=== PATIENT | female | born 1980 | race Caucasian/White ===

== ENCOUNTER 2024-06-26 11:32 | Emergency (ER) | payer OTHER, SELFPAY ==
--- OUTSIDE RECORDS SUMMARY | 2024-06-26 11:35 | XMS_ITS | Encounter Summary ---
Author Organization [facility] Address [address] [place] [address] Phone Care Team Providers Care Chlorinator Name Role Phone Ángel Smith MD Primary Care Provider Ovidio Callahan MD Unavailable [phone] Reason for Visit * Reason Comments Medication Refill Encounter Details Date Type Department Care Team (Late st Contact Info) Description 01/09/2024 Refill [facility] Family Medicine [facility] #2 [place] [address] Ángel Smith MD #[address] [address] Medication Refill Social History Tobacco Use Types Packs/Day Years Used Date Smoking Tobacco: Light Smoker Cigarettes 0.3 15 Smokeless Tobacco: Never Comments:Smoked for 15 years on and off;about 3 a day Alcohol Use Standard Drinks/Week Comments Not Currently 0 (1 standard drink = 0.6 oz pur e alcohol) wine here and there PHQ-2 Answer Date Recorded Total Score - Questions 1-9 0 04/13 Education Answer Date Recorded What is the highest level of school you have completed or the highest degree you have received? Associate degree: occupational, technical, or vocational program 08/02/2022 Sexually Active Control Partners Comments Yes Male Comments No Sex and Gender Information Value Date Recorded Sex Assigned at Not on file Legal Sex Female 10:02 PM CDT Gender Identity Not on file Sexual Orientation Not on file documented as of this encounter Miscellaneous Notes * Telephone Encounter - Maite Padilla RN - 01/09/2024 1:22 PM CST Images from the original note were not included. HYDROcodone-Acetaminophen Dispensed Days Supply Quantity Provider Pharmacy HYDROCO/APAP TAB 5-325MG 12/26/2023 10 40 Tablet Ángel Smith MD [facility]... HYDROCO/APAP TAB 5-325MG 11/27/2023 10 40 Tablet Jorge Abdalla APRN, CNP [facility] Bet... Medication failed the protocol, provider to review and approve the medication order if appropriate. Requested Prescriptions Pending Prescriptions Disp Refills HYDROcodone-acetaminophen (NORCO) 5-325 MG Tablet [Pharmacy Med Name: HYDROCODONE BITARTRATE/ACETAMINOPHEN 5-325MG TABLET] 40 Tablet 0 Sig: TAKE 1 TABLET BY MOUTH EVERY SIX (6) HOURS NEEDED FOR MODERATE OR MORE SEVERE PAIN. Not Delegated - Opioid Combinations Protocol Failed - 01/09/2024 11:01 AM Failed - This refill cannot be delegated Passed - Visit with relevant provider in past 12 months or upcoming 90 days Recent Visits Date Type Provider Dept 11/14/23 Office Visit [facility] 08/15/23 Office Visit Ángel Smith MD [facility] 04/27/23 Office Visit [facility] Show[facility] recent visits within past 365 days and meeting all other requirements Future Appointments Date Type Provider Dept 02/19/24 Appointment Ángel Smith MD 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 - Family Medicine - [place] [address] [place] [address] Ángel Smith MD [address] [address] documented as of this encounter Visit Diagnoses Diagnosis Chronic midline low back pain without sciatica documented in this encounter Additional Health Concerns Assessment Noted Time PHQ-9 Depression Total Score: 0 04/27/19 24 3:12 PM CDT documented as of this encounter Care Teams Chlorinator Relationship Specialty Start Date End Date Ángel Smith MD #[address] [address] PCP - General Family Medicine 06/07/16 Ovidio Callahan MD 4 [facility] [address] [place] [address] Consulting Physician Obstetrics & Gynecology 02/23/18 documented as of this encounter
--- OUTSIDE RECORDS SUMMARY | 2024-06-26 11:35 | XMS_ITS | Encounter Summary ---
Author Organization [facility] Address [address] [place] [address] Phone Care Team Providers Care Senior Net C Developer Name Role Phone Divine Smith MD Primary Care Provider Ovidio Callahan MD Unavailable [phone] Reason for Visit * Reason Comments Medication Refill Encounter Details Date Type Department Care Team (Late st Contact Info) Description 09/12/2019 Refill [facility] #2 [place] [address] Divine Smith MD #[address] [address] Medication Refill Social History Tobacco Use Types Packs/Day Years Used Date Smoking Tobacco: Light Smoker Cigarettes 0.3 15 Smokeless Tobacco: Never Comments:Smoked for 15 years on and off;about 5 a day Alcohol Use Standard Drinks/Week Comments Yes 0 (1 standard drink = 0.6 oz pur e alcohol) wine here and there PHQ-2 Answer Date Recorded PHQ-2 Score 0 10/11/2018 Sexually Active Control Partners Comments Yes Male Comments No Sex and Gender Information Value Date Recorded Sex Assigned at Not on file Legal Sex Female 10:02 PM CDT Gender Identity Not on file Sexual Orientation Not on file documented as of this encounter Miscellaneous Notes * Telephone Encounter - Divine Smith MD - 09/14/2019 9:08 AM CDT Prescription pending signature * Telephone Encounter - Lillie Nicole RN - 09/13/2019 3:15 PM CDT Â RFC: Patient calling asking for update on med refill request for alprazolam. Â Patient just lost her father and is in real need of the medication. Patient states she is in dire need of the meds. Please call [phone] (relationship to patient self) back regarding above referenced patient. Patient's Provider is Dr. Smith. Medication Dispense History (from 05/16/2019 to 09/12/2019) ALPRAZolam Dispensed Written Strength Quantity Refills Days Supply Provider Pharmacy ALPRAZOLAM 07/16/2019 07/15/2019 1MG 60 0 30 , DIVINE SMITH [facility] ALPRAZOLAM 06/17/2019 06/14/2019 1MG 60 0 30 , DIVINE SMITH [facility] ALPRAZOLAM 05/17/2019 05/13/2019 1MG 60 0 30 , DIVNIE SMITH [facility] External Sources Source [place] for [place] 9:25 AM History Response [place] 03/26/2018 3:19 PM History [facility] 09/12/2019 8:47 AM History Response Filed Medication failed the protocol, provider to review and approve the medication order. Requested Prescriptions Pending Prescriptions Disp Refills â€¢ ALPRAZolam (XANAX) 1 MG Tablet [Pharmacy Med Name: ALPRAZOLAM 1 MG TAB 1 TAB] 60 Tab 0 Sig: TAKE ONE TABLET BY MOUTH TWO TIMES A DAY NEEDED ANXIETY Not Delegated - Psychiatry: Anxiolytics/Hypnotics Failed - 09/13/2019 3:13 PM Failed - This refill cannot be delegated Passed - Valid encounter within last 6 months Past Office Visits Recent Outpatient Visits 3 months ago Anxiety [facility] Divine Smith MD 8 months ago Anxiety [facility] Divine Smith MD 1 year ago Abscess [facility] Eboni Bonilla APN, JACQUARD LACE WEAVER 1 year ago Chronic midline low back pain without sciatica [facility] Divine Smith MD 1 year ago Neurological deficit present [facility] Divine Smith MD Upcoming Appointments Future Appointments In 1 week Divine Smith MD [facility], [facility] - Recent and Past Visits Recent Visits Date Type Provider Dept 05/21/19 Telemedicine Divine Smith MD [facility] 12/25/18 Office Visit Divine Smith MD [facility] [place] 09/11/18 Office Visit Eboni Bonilla APN, JACQUARD LACE WEAVER [facility] 08/21/18 Office Visit [facility] MD [facility] Showing recent visits within past 460 days with a meds authorizing provider and meeting all other requirements Future Appointments Date Type Provider Dept 09/23/19 Appointment Divine Smith MD [facility] Showing future appointments within next 90 days with a meds authorizing provider and meeting all other requirements * Telephone Encounter - Daveji Sunny Lockwood - 09/13/2019 3:12 PM CDT Images from the original note were not included. med refills f/u Received: Today Message Contents Aida Gutierrezripts Error Workqueue Cris Caller: Unspecified (Today, Â 3:01 PM) Â RFC: Patient calling asking for update on med refill request for alprazolam. Â Patient just lost her father and is in real need of the medication. Patient states she is in dire need of the meds. Please call [phone] (relationship to patient self) back regarding above referenced patient. Patient's Provider is Dr. Smith. Reached out to Medication Management RN via office messaging. * Telephone Encounter - Sunny Vu - 09/13/2019 1:11 PM CDT Message from Radha José sent at 09/13/2019 11:46 AM CDT RFC: Refill Name of medication needed? ALPRAZolam (XANAX) 1 MG Tablet Person calling for refill?[facility]location for refill to be sent to (if is not a written script)? [facility] [employer] [facility] For written scripts, name and relationship of person picking up script? Â Date of of person picking up script if not patient? 30 or 90 day supply? 30 Please call donis (relationship to patient self) back regarding above referenced patient if any questions. Phone number [phone]. Â Secondary phone number is . Provider: anamaria documented in this encounter Plan of Treatment Upcoming Encounters Date Type Department Care Team (Late st Contact Info) Description 07/16/2024 7:15 AM CDT Office Visit [facility] - Family [facility] #2 [place] [address] Divine Smith MD #[address] [address] documented as of this encounter Visit Diagnoses Not on filedocumented in this encounter Additional Health Concerns Assessment Noted Time PHQ-9 Depression Total Score: 0 06/01/19 19 2:00 PM CDT documented as of this encounter Care Teams Senior Net C Developer Relationship Specialty Start Date End Date Divine Smith MD #[address] [address] PCP - General Family Medicine 06/07/16 Ovidio Callahan MD 4 [facility] [place] [address] Consulting Physician Obstetrics & Gynecology 02/23/18 documented as of this encounter
--- OUTSIDE RECORDS SUMMARY | 2024-06-26 11:35 | XMS_ITS | Encounter Summary ---
Author Organization [facility] Address [address] [place] [address] Phone Care Team Providers Care Press Assistant And Feeder Name Role Phone Ángel Smith MD Primary Care Provider [phone] Ovidio Callahan MD Unavailable [phone] Reason for Visit * Reason Comments Medication Refill Encounter Details Date Type Department Care Team (Late st Contact Info) Description 10/02/2019 Refill [facility] #2 [place] [address] Ángel Smith MD #[address] [address] Medication Refill Social History Tobacco Use Types [...] on file Sexual Orientation Not on file COVID-19 Exposure Response Date Recorded In the last month, have you been in contact with someone who was confirmed or suspected to have Coronavirus / COVID-19? Yes 09/23/2019 12:10 PM CDT documented as of this encounter Miscellaneous Notes * Telephone Encounter - Lillie Nicole RN - 10/03/2019 8:14 AM CDT Last OV: 12/25/18 Next OV: 10/08/19 Routing to provider per protocol as medication(s) can not be signed by a nurse for approval. Medication Dispense History (from 06/05/2019 to 10/02/2019) HYDROcodone-Acetaminophen Dispensed Written Strength Quantity Refills Days Supply Provider Pharmacy Hydrocodone Bitartrate And Acetaminophen 09/19/2019 09/19/2019 5- 325 MG 90 0 15 , ÁNGEL SMITH [facility] Hydrocodone Bitartrate And Acetaminophen 08/19/2019 08/19/2019 5- 325 MG 90 0 30 , ÁNGEL SMITH [facility] Hydrocodone Bitartrate And Acetaminophen 07/20/2019 07/18/2019 5- 325 MG 90 0 30 , ÁNGEL SMITH [facility] Hydrocodone Bitartrate And Acetaminophen 06/20/2019 06/17/2019 5- 325 MG 90 0 30 , ÁNGEL SMITH [facility] External Sources Source Last Checked for Updates Status [facility] 10/02/2019 8:51 AM History Response Filed documented in this encounter Plan of Treatment Upcoming Encounters Date Type Department Care Team (Late st Contact Info) Description 07/16/2024 7:15 AM CDT Office Visit [facility] #[address] [place] [address] Ángel Smith MD [address] [address] documented as of this encounter Visit Diagnoses Not on filedocumented in this encounter Additional Health Concerns Assessment Noted Time PHQ-9 Depression Total Score: 0 06/01/19 19 2:00 PM CDT documented as of this encounter Care Teams Press Assistant And Feeder Relationship Specialty Start Date End Date Ángel Smith MD #[address] [facility] [address] [place] [address] PCP - General Family Medicine 06/07/16 Ovidio Callahan MD [address] [facility] [address] [place] [address] Consulting Physician Obstetrics & Gynecology 02/23/18 documented as of this encounter
--- OUTSIDE RECORDS SUMMARY | 2024-06-26 11:35 | XMS_ITS | Encounter Summary ---
Author Organization [facility] Address [address] [place] [address] Phone Care Team Providers Care Chef Kitchen Manager Name Role Phone Ángel Smith MD Primary Care Provider Ovidio Callahan MD Unavailable Reason for Visit * Reason Comments Medication Refill Encounter Details Date Type Department Care Team (Late st Contact Info) Description 04/30/2021 Refill [facility] #2 [place] [address] Ángel Smith MD #[address] [address] Medication Refill Social History Tobacco Use Types Packs/Day Years Used Date Smoking Tobacco: Light Smoker Cigarettes 0.3 15 Smokeless Tobacco: Never Comments:Smoked for 15 years on and off;about 3 a day Alcohol Use Standard Drinks/Week Comments Not Currently 0 (1 standard drink = 0.6 oz pur e alcohol) wine here and there PHQ-2 Answer Date Recorded Total Score - Questions 1-9 0 12/14 Sexually Active Control Partners Comments Yes Male Comments No Sex and Gender Information Value Date Recorded Sex Assigned at Not on file Legal Sex Female 10:02 PM CDT Gender Identity Not on file Sexual Orientation Not on file documented as of this encounter Miscellaneous Notes * Telephone Encounter - Maite Padilla RN - 04/30/2021 3:09 PM CDT 04/17/21 - 20 days - due 05/07/21 - posted Rx was sent over 04/29/21 ALPRAZolam (XANAX) 1 MG Tablet 60 Tablet 0 05/07/2021 Sig: TAKE ONE (1) TABLET BY MOUTH THREE (3) TIMES DAILY NEEDED FOR ANXIETY. Sent to pharmacy as: ALPRAZolam 1 MG Oral Tablet (XANAX) Class: E Prescribe Notes to Pharmacy: Earliest fill date 05/07/21 E-Prescribing Status: Receipt confirmed by pharmacy (04/29/2021 Â 6:57 AM CDT) Order Questions Â ALPRAZolam (XANAX) 1 MG Tablet [[id number]] 6 Status: Active Ordering user: Ángel Smith MD 04/29/21656 Authorized by: Ángel Smith MD Frequency: Â 05/07/21 - Until Discontinued Released by: Ángel Smith MD 04/29/21 0657 Diagnoses Anxiety [F41.9] Associated Diagnoses Anxiety Pharmacy [place], [place] - [address] [facility] documented in this encounter Plan of Treatment Upcoming Encounters Date Type Department Care Team (Late st Contact Info) Description 07/16/2024 7:15 AM CDT Office Visit [facility] - Family Medicine [facility] #2 [place] [address] Ángel Smith MD #[address] [address] documented as of this encounter Visit Diagnoses Diagnosis Anxiety Anxiety state, unspecified documented in this encounter Additional Health Concerns Assessment Noted Time PHQ-9 Depression Total Score: 0 12/31/19 21 11:20 AM ELECTRODYNAMICIST documented as of this encounter Care Teams Chef Kitchen Manager Relationship Specialty Start Date End Date Ángel Smith MD #[address] [address] PCP - General Family Medicine 06/07/16 Ovidio Callahan MD [address] [facility] [place] [address] Consulting Physician Obstetrics & Gynecology 02/23/18 documented as of this encounter
--- OUTSIDE RECORDS SUMMARY | 2024-06-26 11:35 | XMS_ITS | Encounter Summary ---
Author Organization [facility] Address [address] [place] [address] Phone Care Team Providers Care Lode Miner Name Role Phone Ángel Smith MD Primary Care Provider Ovidio Callahan MD Unavailable [phone] Reason for Visit * Reason Comments Medication Refill Encounter Details Date Type Department Care Team (Late st Contact Info) Description 04/20/2021 Refill [facility] #2 [place] [address] Ángel Smith MD #[address] [address] Medication Refill Social History Tobacco Use Types [...] Telephone Encounter - Maite Padilla RN - 04/21/2021 8:28 AM CST Per PDMP - a 20 days supply was dispensed 04/17/21 ER BOILERMAKER documented in this encounter Plan of Treatment Upcoming Encounters Date Type Department Care Team (Late st Contact Info) Description 07/16/2024 7:15 AM CDT Office Visit [facility] - Family Medicine - [place] #2 [place] [address] Ángel Smith MD #[address] [address] documented as of this encounter Visit Diagnoses Diagnosis Anxiety Anxiety state, unspecified documented in this encounter Additional Health Concerns Assessment Noted Time PHQ-9 Depression Total Score: 0 12/31/19 21 11:20 AM WELDER BOILERMAKER documented as of this encounter Care Teams Lode Miner Relationship Specialty Start Date End Date Ángel Smith MD #[address] [address] PCP - General Family Medicine 06/07/16 Ovidio Callahan MD [address] [place] [address] [facility] [address] [place] [address] Consulting Physician Obstetrics & Gynecology 02/23/18 documented as of this encounter
--- OUTSIDE RECORDS SUMMARY | 2024-06-26 11:35 | XMS_ITS | Encounter Summary ---
Author Organization [facility] Address [address] [place] [address] Phone Care Team Providers Care Energy Conservation Specialist Name Role Phone Ángel Smith MD Primary Care Provider Ovidio Callahan MD Unavailable [phone] Reason for Visit * Reason Onset Date Comments Appointment 01/16/2024 Encounter Details Date Type Department Care Team (Late st Contact Info) Description 01/16/2024 Telephone [facility] #2 [place] [address] Ángel Smith MD #[address] [address] Appointment Social History Tobacco Use Types Packs/Day Years [...] encounter Miscellaneous Notes * Telephone Encounter - Tracy Edwards - 01/16/2024 11:06 AM CST Patient was last seen on 11/14/2023 and her next appointment is for 02/19/2024 for a 3 month follow up. She is seen every 3 months for her prescription. S ORDER PROCESSOR documented in this encounter Plan of Treatment Upcoming Encounters Date Type Department Care Team (Late st Contact Info) Description 07/16/2024 7:15 AM CDT Office Visit [facility] - [place] #2 [facility] [place] [address] Ángel Smith MD #[address] [address] documented as of this encounter Visit Diagnoses Not on filedocumented in this encounter Additional Health Concerns Assessment Noted Time PHQ-9 Depression Total Score: 0 04/27/19 24 3:12 PM CDT documented as of this encounter Care Teams Energy Conservation Specialist Relationship Specialty Start Date End Date Ángel Smith MD #[address] [address] PCP - General Family Medicine 06/07/16 Ovidio Callahan MD [address] [place] [address] [address] [place] [address] Consulting Physician Obstetrics & Gynecology 02/23/18 documented as of this encounter
--- OUTSIDE RECORDS SUMMARY | 2024-06-26 11:35 | XMS_ITS | Encounter Summary ---
Author Organization [facility] Address [address] [place] [address] Phone Care Team Providers Care Crochet Machine Operator Name Role Phone Ángel Smith MD Primary Care Provider Ovidio Callahan MD Unavailable Reason for Visit * Reason Comments Medication Refill Encounter Details Date Type Department Care Team (Late st Contact Info) Description 12/15/2023 Refill [facility] Medicine [facility] #2 [place] [address] Ángel Smith MD #[address] [address] Medication Refill Social History Tobacco Use Types [...] encounter Miscellaneous Notes * Telephone Encounter - Marisol Jinag RN - 12/16/2023 11:15 AM CDT Images from the original note were not included. HYDROcodone-Acetaminophen Dispensed Days Supply Quantity Provider Pharmacy HYDROCO/APAP TAB 5-325MG 11/27/2023 10 40 Tablet Jorge Abdalla APRN, DEON [facility] Bet... HYDROCO/APAP TAB 5-325MG 11/13/2023 10 40 Tablet Ángel Smith MD [facility] Bet... Medication failed the protocol, provider to review and approve the medication order if appropriate. Requested Prescriptions Pending Prescriptions Disp Refills HYDROcodone-acetaminophen (NORCO) 5-325 MG Tablet [Pharmacy Med Name: HYDROCODONE BITARTRATE/ACETAMINOPHEN 5-325MG TABLET] 40 Tablet 0 Sig: TAKE 1 TABLET BY MOUTH EVERY SIX (6) HOURS NEEDED FOR MODERATE OR MORE SEVERE PAIN. Not Delegated - Opioid Combinations Protocol Failed - 12/15/2023 5:07 PM Failed - This refill cannot be delegated Passed - Visit with relevant provider in past 12 months or upcoming 90 days Recent Visits Date Type Provider Dept 11/14/23 Office Visit Ángel Smith MD [facility] 08/15/23 Office Visit Ángel Smith MD [facility] 04/27/23 Office Visit Ángel Smith MD [facility] Showing recent visits within past 365 days and meeting all other requirements Future Appointments Date Type Provider Dept 02/19/24 Appointment Ángel Smith [facility] future appointments within next 90 days and meeting all other requirements documented in this encounter Plan of Treatment Upcoming Encounters Date Type Department Care Team (Late st Contact Info) Description 07/16/2024 7:15 AM CDT Office Visit [facility] - Family Medicine - [place] #[address] [place] [address] Ángel Smith MD #[address] [address] documented as of this encounter Visit Diagnoses Diagnosis Chronic midline low back pain without sciatica documented in this encounter Additional Health Concerns Assessment Noted Time PHQ-9 Depression Total Score: 0 04/27/19 24 3:12 PM CDT documented as of this encounter Care Teams Crochet Machine Operator Relationship Specialty Start Date End Date Ángel Smith MD #2 [facility] [address] [place] [address] PCP - General Family Medicine 06/07/16 Ovidio Callahan MD [address] [facility] [address] [place] [address] Consulting Physician Obstetrics & Gynecology 02/23/18 documented as of this encounter
--- OUTSIDE RECORDS SUMMARY | 2024-06-26 11:35 | XMS_ITS | Encounter Summary ---
Author Organization [facility] Address [address] [place] [address] Phone Care Team Providers Care Pipeline Welder Name Role Phone Ángel Smith MD Primary Care Provider Ovidio Callahan MD Unavailable [phone] Reason for Visit * Reason Comments Medication Refill Encounter Details Date Type Department Care Team (Late st Contact Info) Description 08/15/2019 Refill [facility] #2 [place] [address] Ángel Smith MD #[address] [address] Medication Refill Social History Tobacco Use Types [...] encounter Miscellaneous Notes * Telephone Encounter - Ángel Smith MD - 08/19/2019 8:58 AM CDT Prescription pending signature * Telephone Encounter - Felecia Liang RN - 08/19/2019 8:50 AM CDT Requested Prescriptions Pending Prescriptions Disp Refills HYDROcodone-acetaminophen (NORCO) 5-325 MG Tablet [Pharmacy Med Name: HYDROCODON-APAP 5-325 5-325 TAB] 90 Tab 0 Sig: Take 1 Tab by mouth every 4 hours as needed (pain). Not Delegated - Analgesics: Opioid Agonist Combinations Failed - 08/15/2019 11:39 AM Failed - This refill cannot be delegated Passed - Valid encounter within last 6 months Past Office Visits Recent Outpatient Visits 3 months ago Anxiety [facility] Ángel Smith MD 7 months ago Anxiety [facility] Ángel Smith MD 11 months ago Abscess [facility] Eboni Bonilla APN, WEB PRESS OPERATOR APPRENTICE 12 months ago Chronic midline low back pain without sciatica [facility] Ángel Smith MD 1 year ago Neurological deficit present [facility] Ángel Smith MD Upcoming Appointments Future Appointments In 1 month Ángel Smith MD [facility], [facility] documented in this encounter Plan of Treatment Upcoming Encounters Date Type Department Care Team (Late st Contact Info) Description 07/16/2024 7:15 AM CDT Office Visit [facility] - [place] [address] [place] [address] Ángel Smith MD [address] [address] documented as of this encounter Visit Diagnoses Not on filedocumented in this encounter Additional Health Concerns Assessment Noted Time PHQ-9 Depression Total Score: 0 06/01/19 19 2:00 PM CDT documented as of this encounter Care Teams Pipeline Welder Relationship Specialty Start Date End Date Ángel Smith MD #2 [facility] [address] [place] [address] PCP - General Family Medicine 06/07/16 Ovidio Callahan MD [address] [facility] [address] [place] [address] Consulting Physician Obstetrics & Gynecology 02/23/18 documented as of this encounter
--- OUTSIDE RECORDS SUMMARY | 2024-06-26 11:35 | XMS_ITS | Encounter Summary ---
Author Organization [facility] Address [address] [place] [address] Phone Care Team Providers Care Utility Pipe Layer Name Role Phone Ángel Smith MD Primary Care Provider [phone] Ovidio Callahan MD Unavailable [phone] Reason for Visit * Reason Onset Date Comments Medication Refill 09/16/2019 Encounter Details Date Type Department Care Team (Late st Contact Info) Description 09/16/[address] [facility] [address] [place], [place] [address] Ángel Smith MD #[address] [address] Medication Refill Social History Tobacco Use Types [...] encounter Miscellaneous Notes * Telephone Encounter - Hattie Pope RN - 09/17/2019 8:36 AM CDT Duplicate request. * Telephone Encounter - Jesica Yeung - 09/16/2019 12:10 PM CDT Name of Medication: HYDROcodone-acetaminophen (NORCO) 5-325 MG Tablet Pharmacy/location for refill to be sent to (if is not a written script)? [facility] [place] [facility] [address] [place] [address] 30 or 90 day supply? N/a New script for controlled substance schedule II medication documented in this encounter Plan of Treatment Upcoming Encounters Date Type Department Care Team (Late st Contact Info) Description 07/16/2024 7:15 AM CDT Office Visit [facility] #2 [place] [address] Ángel Smith MD [facility] [place] [address] documented as of this encounter Visit Diagnoses Not on filedocumented in this encounter Additional Health Concerns Assessment Noted Time PHQ-9 Depression Total Score: 0 06/01/19 19 2:00 PM CDT documented as of this encounter Care Teams Utility Pipe Layer Relationship Specialty Start Date End Date Ángel Smith MD [facility] [address] [place] [address] PCP - General Family Medicine 06/07/16 Ovidio Callahan MD [address] [place] [address] [facility] [address] [facility] [place] [address] Consulting Physician Obstetrics & Gynecology 02/23/18 documented as of this encounter
--- OUTSIDE RECORDS SUMMARY | 2024-06-26 11:35 | XMS_ITS | Encounter Summary ---
Author Organization [facility] Address [address] [place] [address] Phone Care Team Providers Care Repairer Switchgear Name Role Phone Ángel Smith MD Primary Care Provider Ovidio Callahan MD Unavailable [phone] Reason for Visit * Reason Comments Medication Refill Encounter Details Date Type Department Care Team (Late st Contact Info) Description 01/03/2024 Refill [facility] #2 [place] [address] Ángel Smith MD #[address] [address] Medication Refill Social History Tobacco Use Types [...] Telephone Encounter - Maite Padilla RN - 01/03/2024 12:00 PM CST Images from the original note were not included. HYDROcodone-Acetaminophen Dispensed Days Supply Quantity Provider Pharmacy HYDROCO/APAP TAB 5-325MG 12/26/2023 10 40 Tablet Ángel Smith MD [facility]... HYDROCO/APAP TAB 5-325MG 11/27/2023 10 40 Tablet Jorge Abdalla APRN, CNP [facility]... Medication failed the protocol, provider to review and approve the medication order if appropriate. Requested Prescriptions Pending Prescriptions Disp Refills HYDROcodone-acetaminophen (NORCO) 5-325 MG Tablet [Pharmacy Med Name: HYDROCODONE BITARTRATE/ACETAMINOPHEN 5-325MG TABLET] 40 Tablet 0 Sig: TAKE 1 TABLET BY MOUTH EVERY SIX (6) HOURS NEEDED FOR MODERATE OR MORE SEVERE PAIN. Not Delegated - Opioid Combinations Protocol Failed - 01/03/2024 8:03 AM Failed - This refill cannot be delegated Passed - Visit with relevant provider in past 12 months or upcoming 90 days Recent Visits Date Type Provider Dept 11/14/23 Office Visit Ángel [facility] MD [facility] 08/15/23 Office Visit Ángel Smith MD [facility] 04/27/23 Office Visit Ángel Smith MD [facility] Showing recent visits within past 365 days and meeting all other requirements Future Appointments Date Type Provider Dept 02/19/24 Appointment Ángel Smith MD [facility] Showing future appointments within next 90 days and meeting all other requirements ARY TEACHER documented in this encounter Plan of Treatment Upcoming Encounters Date Type Department Care Team (Late st Contact Info) Description 07/16/2024 7:15 AM CDT Office Visit [facility] - Family Medicine - [place] [address] [place] [address] Ángel Smith MD [address] [address] documented as of this encounter Visit Diagnoses Diagnosis Chronic midline low back pain without sciatica documented in this encounter Additional Health Concerns Assessment Noted Time PHQ-9 Depression Total Score: 0 04/27/19 24 3:12 PM CDT documented as of this encounter Care Teams Repairer Switchgear Relationship Specialty Start Date End Date Ángel Smith MD #[address] [address] PCP - General Family Medicine 06/07/16 Ovidio Callahan MD 4 [facility] [address] [place] [address] Consulting Physician Obstetrics & Gynecology 02/23/18 documented as of this encounter
--- OUTSIDE RECORDS SUMMARY | 2024-06-26 11:35 | XMS_ITS | Encounter Summary ---
Author Organization [facility] Address [address] [place] [address] Phone Care Team Providers Care Metaphysicist Name Role Phone Ángel Smith MD Primary Care Provider [phone] Ovidio Callahan MD Unavailable [phone] Encounter Details Date Type Department Care Team (Late st Contact Info) Description 04/26/2024 Results Follow-Up [facility] - Family Medicine [facility] #[address] [place] [address] Ángel Smith MD #[address] [address] THYROID STIMULATING HORMONE (TSH), CMP (COMPREHENSIVE METABOLIC PANEL), CBC WITH AUTO DIFFERENTIAL Social History Tobacco Use Types Packs/Day Years Used Date Smoking Tobacco: Light Smoker Cigarettes 0.3 15 Smokeless Tobacco: Never Comments:Smoked for 15 years on and off;about 3 a day Alcohol Use Standard Drinks/Week Comments Not Currently 0 (1 standard drink = 0.6 oz pur e alcohol) wine here and there [facility] Utilities Answer Date Recorded In the past 12 months has [employer] gas, oil, or water Kiosked threatened to shut off services in your home? Yes 04/26/2024 Social Connection and Isolat ion Panel [NHANES] Answer Date Recorded In a typical week, how many times do you talk on the phone with family, friends, or neighbors? Never 04/26/2024 How often do you get togethe r with friends or relatives? Never 04/26/2024 How often do you attend chur ch or congregational services? More than 4 times per year 04/26/2024 Do you belong to any clubs o r organizations such as mandaen groups, unions, fraternal or athletic groups, or school groups? No 04/26/2024 How often do you attend meet ings of the clubs or organizations you belong to? Patient declined 04/26/2024 Are you , , di vorced, , never , or living with a partner? 04/26/2024 AUDIT-C Answer Date Recorded Q1: How often do you have a drink containing alcohol? Never 04/26/2024 Q2: How many drinks containi ng alcohol do you have on a typical day when you are drinking? Patient does not drink Q3: How often do you have si x or more drinks on one occasion? Never 04/26/2024 Overall Financial Resource Strain (CARDIA) Answe r Date Recorded How hard is it for you to pa y for the very basics like food, housing, medical care, and heating? Very hard 04/26/2024 PHQ-2 Answer Date Recorded Total Score - Questions 1-9 0 04/13 [facility] - Occupational Stress Questionnaire Answer Date Recorded Do you feel stress - tense, restless, nervous, or anxious, or unable to sleep at night because your mind is troubled all the time - these days? Very much 04/26/2024 Exercise Vital Sign Answer Date Recorde d On average, how many days pe r week do you engage in moderate to strenuous exercise (like a brisk walk)? 6 days 04/26/2024 On average, how many minutes do you engage in exercise at this level? 150+ min 04/26/2024 Hunger Vital Sign Answer Date Recorded Within the past 12 months, y ou worried that your food would run out before you got the money to buy more. Sometimes true Within the past 12 months, t he food you bought just didn't last and you didn't have money to get more. Sometimes true PRAPARE - Transportation Answer Date Re corded In the past 12 months, has l ack of transportation kept you from medical appointments or from getting medications? No 04/13 In the past 12 months, has l ack of transportation kept you from meetings, work, or from getting things needed for daily living? No 04/26/2024 Housing Stability Vital Sign Answer Arley e Recorded In the last 12 months, was t here a time when you were not able to pay the mortgage or rent on time? Yes 04/26/2024 In the past 12 months, how m any times have you moved where you were living? 0 04/26/2024 At any time in the past 12 m [facility], were you homeless or living in a halfway (including now)? No 04/26/2024 Education Answer Date Recorded What is the [...] on file documented as of this encounter Functional Status * Audit-C Score Answer Date of Assessment Author 0 04/26/2024 11:06 AM CDT [facility] * Q1: How often do you have a drink containing alcohol? Answer Date of Assessment Author Never 04/26/2024 11:06 AM CDT [facility] [place] [facility] [place] * Q2: How many drinks containing alcohol do you have on a typical day when you are drinking? Answer Date of Assessment Author Patient does not drink 04/26/2024 11:06 AM CDT [facility] [place] [facility] * Q3: How often do you have six or more drinks on one occasion? Answer Date of Assessment Author Never 04/26/2024 11:06 AM CDT [facility] documented as of this encounter Plan of Treatment Upcoming Encounters Date Type Department Care Team (Late st Contact Info) Description 07/16/2024 7:15 AM CDT Office Visit [facility] - [place] #[address] [place] [address] Ángel Smith MD #[address] [address] documented as of this encounter Visit Diagnoses Not on filedocumented in this encounter Additional Health Concerns Assessment Noted Time PHQ-9 Depression Total Score: 0 04/27/19 24 3:12 PM CDT documented as of this encounter Care Teams Metaphysicist Relationship Specialty Start Date End Date Ángel Smith MD #2 [facility] [address] [place] [address] PCP - General Family Medicine 06/07/16 Ovidio Callahan MD [address] [facility] [address] [place] [address] Consulting Physician Obstetrics & Gynecology 02/23/18 documented as of this encounter
--- OUTSIDE RECORDS SUMMARY | 2024-06-26 11:35 | XMS_ITS | Encounter Summary ---
Author Organization [facility] Address [address] [place] [address] Phone Care Team Providers Care Data Management Name Role Phone Ángel Smith MD Primary Care Provider [phone] Ovidio Callahan MD Unavailable [phone] Reason for Visit * Reason Comments Medication Refill Encounter Details Date Type Department Care Team (Late st Contact Info) Description 10/29/2020 Refill [facility] #2 [place] [address] Ángel Smith MD #[address] [address] Medication Refill Social History Tobacco Use Types Packs/Day Years Used Date Smoking Tobacco: Light Smoker Cigarettes 0.3 15 Smokeless Tobacco: Never Comments:Smoked for 15 years on and off;about 3 a day Alcohol Use Standard Drinks/Week Comments Not Currently 0 (1 standard drink = 0.6 oz pur e alcohol) wine here and there PHQ-2 Answer Date Recorded Total Score - Questions 1-9 0 04/15 Sexually Active Control Partners Comments Yes Male Comments No Sex and Gender Information Value Date Recorded Sex Assigned at Not on file Legal Sex Female 10:02 PM CDT Gender Identity Not on file Sexual Orientation Not on file documented as of this encounter Miscellaneous Notes * Telephone Encounter - Ángel Smith MD - 10/29/2020 1:46 PM CDT Prescription approved. Please call in * Telephone Encounter - Sravani Hair RN - 10/29/2020 1:32 PM CDT Medication failed the protocol, provider to review and approve the medication order if appropriate. Requested Prescriptions Pending Prescriptions Disp Refills ergocalciferol (VITAMIN D) 43717 UNIT Capsule [Pharmacy Med Name: VIT D2 1.25 MG (50,000 UNIT 1.25 MG Capsule] 3 Capsule 2 Sig: Take 1 Cap by mouth every 30 days. healthfinch Off-Protocol Failed - 10/29/2020 12:28 PM Failed - Medication not assigned to a protocol, review manually. Passed - Valid encounter within last 12 months Past Office Visits Recent Outpatient [facility]its [facility] months ago Physical exam, annual (Adult) [facility] Ángel Diop MD 8 months ago Chronic midline low back pain without sciatica [facility] Ángel Diop MD 1 year ago Anxiety [facility] Ángel Diop MD 1 year ago Anxiety [facility] Ángel Diop MD Upcoming Appointments Future Appointments In 2 months Ángel Smith MD [facility] Recent and Past Visits Recent Visits Date Type Provider Dept 09/29/20 Office Visit Jorge Abdalla APN, DEON [facility] 05/12/20 Office Visit Ángel Smith MD [facility] 02/18/20 Telemedicine Ángel Smith MD [facility] 10/14/19 Office Visit Ángel Smith MD [facility] Showing recent visits within past 460 days with a meds authorizing provider and meeting all other requirements Future Appointments Date Type Provider Dept 12/30/20 Appointment Ángel Smith MD [facility] Showing future appointments within next 90 days with a meds authorizing provider and meeting all other requirements Vitamin Supplements (Adult) Protocol Passed - 10/29/2020 12:28 PM Passed - Visit with relevant provider in past 12 months or upcoming 90 days Recent Visits Date Type Provider Dept 09/29/20 Office Visit Jorge Abdalla APN, ONCOLOGY PHARMACIST [facility] 05/12/20 [facility] Telemedicine Ángel Smith MD [facility] Showing recent visits within past 365 days and meeting all other requirements Future Appointments Date Type Provider Dept 12/30/20 Appointment [facility] future appointments within next 90 days and meeting all other requirements Passed - Vitamin D less than 1.25mg documented in this encounter Plan of Treatment Upcoming Encounters Date Type Department Care Team (Late st Contact Info) Description 07/16/2024 7:15 AM CDT Office Visit [facility] #[address] [place] [address] Ángel Smith MD #[address] [address] documented as of this encounter Visit Diagnoses Not on filedocumented in this encounter Additional Health Concerns Assessment Noted Time PHQ-9 Depression Total Score: 0 05/13/19 21 6:06 PM CDT documented as of this encounter Care Teams Data Management Relationship Specialty Start Date End Date Ángel Smith MD #[address] [address] PCP - General Family Medicine 06/07/16 Ovidio Callahan MD [address] [place] [address] [address] [place] [address] Consulting Physician Obstetrics & Gynecology 02/23/18 documented as of this encounter
--- OUTSIDE RECORDS SUMMARY | 2024-06-26 11:35 | XMS_ITS | Encounter Summary ---
Author Organization [facility] Address [address] [place] [address] Phone Care Team Providers Care Plant Clerk Name Role Phone Ángel Smith MD Primary Care Provider [phone] Ovidio Callahan MD Unavailable [phone] Reason for Visit * Reason Comments Medication Refill Encounter Details Date Type Department Care Team (Late st Contact Info) Description 08/14/2019 Refill [facility] #2 [place] [address] Ángel Smith MD #[address] [address] Medication Refill Social History Tobacco Use Types [...] Telephone Encounter - Ángel Smith MD - 08/15/2019 2:04 PM CDT Prescription pending signature * Telephone Encounter - Esther Peraza, RN - 08/15/2019 1:53 PM CDT Requested Prescriptions Pending Prescriptions Disp Refills ALPRAZolam (XANAX) 1 MG Tablet [Pharmacy Med Name: ALPRAZOLAM 1 MG TAB 1 TAB] 60 Tab 0 Sig: TAKE ONE TABLET BY MOUTH TWO TIMES A DAY NEEDED ANXIETY Not Delegated - Psychiatry: Anxiolytics/Hypnotics Failed - 08/14/2019 4:18 PM Failed - This refill cannot be delegated Passed - Valid encounter within last 6 months Past Office Visits Recent Outpatient Visits 2 months ago Anxiety [facility] Ángel Smtih MD 7 months ago Anxiety [facility] Ángel Smith MD 11 months ago Abscess [facility] Eboni Bonilla APN, HEAVY LIFT RIGGER 11 months ago Chronic midline low back pain without sciatica [facility] Ángel Smith MD 1 year ago Neurological deficit present [facility] Ángel Smith MD Upcoming Appointments Future Appointments In 1 month Ángel Smith MD [facility], [facility] documented in this encounter Plan of Treatment Upcoming Encounters Date Type Department Care Team (Late st Contact Info) Description 07/16/2024 7:15 AM CDT Office Visit [facility] - Family Medicine - [place] #[address] [place] [address] Ángel Smith MD #[address] [address] documented as of this encounter Visit Diagnoses Not on filedocumented in this encounter Additional Health Concerns Assessment Noted Time PHQ-9 Depression Total Score: 0 06/01/19 19 2:00 PM CDT documented as of this encounter Care Teams Plant Clerk Relationship Specialty Start Date End Date Ángel Smith MD #2 [address] [facility] [address] [place] [address] PCP - General Family Medicine 06/07/16 Ovidio Callahan MD 4 [facility] [address] [place] [address] Consulting Physician Obstetrics & Gynecology 02/23/18 documented as of this encounter
--- OUTSIDE RECORDS SUMMARY | 2024-06-26 11:35 | XMS_ITS | Encounter Summary ---
Author Organization [facility] Address [address] [place] [address] Phone Care Team Providers Care Butcher All Round Name Role Phone Ángel Smith MD Primary Care Provider [phone] Ovidio Callahan MD Unavailable [phone] Encounter Details Date Type Department Care Team (Late st Contact Info) Description 04/30/2024 Results Follow-Up [facility] - Family Medicine [facility] [address] [place] [address] Ángel Smith MD #[address] [address] EKG 12 LEAD Social History Tobacco Use Types Packs/Day Years Used Date Smoking Tobacco: Light Smoker Cigarettes 0.3 15 Smokeless Tobacco: Never Comments:Smoked for 15 years on and off;about 3 a day Alcohol Use Standard Drinks/Week Comments Not Currently 0 (1 standard drink = 0.6 oz pur e alcohol) wine here and there [facility] Utilities Answer Date Recorded In the past 12 months has [employer] electric, gas, oil, or water company threatened to shut off services in your home? Yes 04/26/2024 Social Connection and Isolat ion Panel [NHANES] Answer Date Recorded In a typical week, how many times do you talk on the phone with family, friends, or neighbors? Never 04/26/2024 How often do you get togethe r with friends or relatives? Never 04/26/2024 How often do you attend chur or cheondoism services? More than 4 times per year 04/26/2024 Do you belong to any clubs o r organizations such as presybeterian groups, unions, fraternal or athletic groups, or [...] Total Score - Questions 1-9 0 04/13 [facility] - Occupational Stress Questionnaire Answer Date Recorded [...] any time in the past 12 m [facility], were you homeless or living in a correction (including now)? No 04/26/2024 Education Answer Date [...] on file documented as of this encounter Progress Notes * Shannan Scott RMA - 04/30/2024 10:02 AM CDT Viewed results on [employer]t documented in this encounter Plan of Treatment Upcoming Encounters Date Type Department Care Team (Late st Contact Info) Description 07/16/2024 7:15 AM CDT Office Visit [facility] - Family Medicine [facility] [address] [place] [address] Ángel Smith MD [address] [address] documented as of this encounter Visit Diagnoses Not on filedocumented in this encounter Additional Health Concerns Assessment Noted Time PHQ-9 Depression Total Score: 0 04/27/19 24 3:12 PM CDT documented as of this encounter Care Teams Butcher All Round Relationship Specialty Start Date End Date Ángel Smith MD #[address] [address] PCP - General Family Medicine 06/07/16 Ovidio Callahan MD [address] [facility] [address] [place] [address] Consulting Physician Obstetrics & Gynecology 02/23/18 documented as of this encounter
--- OUTSIDE RECORDS SUMMARY | 2024-06-26 11:35 | XMS_ITS | Encounter Summary ---
Author Organization [facility] Address [address] [place] [address] Phone Care Team Providers Care Collections Assistant Name Role Phone Ángel Smith MD Primary Care Provider Ovidio Callahan MD Unavailable Reason for Visit * Reason Comments Medication Refill Encounter Details Date Type Department Care Team (Late st Contact Info) Description 01/15/2024 [facility]ill [facility] #2 [place] [address] Ángel Smith MD #[address] [address] Medication Refill Social History Tobacco Use Types [...] Telephone Encounter - Ángel Smith MD - 01/15/2024 4:28 PM CST Needs office visit STAYER * Telephone Encounter - Ariana Arboleda RN - 01/15/2024 2:37 PM SEAM STAYER Dispensed Days Supply Quantity Provider Pharmacy HYDROCO/APAP TAB 5-325MG 12/26/2023 10 40 Tablet Ángel Smith MD [facility]... Medication failed the protocol, provider to review and approve the medication order if appropriate. Requested Prescriptions Pending Prescriptions Disp Refills HYDROcodone-acetaminophen (NORCO) 5-325 MG Tablet [Pharmacy Med Name: HYDROCODONE BITARTRATE/ACETAMINOPHEN 5-325MG TABLET] 40 Tablet 0 Sig: TAKE 1 TABLET BY MOUTH EVERY SIX (6) HOURS NEEDED FOR MODERATE OR MORE SEVERE PAIN. Not Delegated - Opioid Combinations Protocol Failed - 01/15/2024 11:27 AM Failed - This refill cannot be delegated Passed - Visit with relevant provider in past 12 months or upcoming 90 days Recent Visits Date Type Provider Dept 11/14/23 Office Visit Ángel Smith MD [facility] 08/15/23 Office Visit Ángel Smith MD [facility] 04/27/23 Office Visit Ángel Smith MD [facility] recent visits within past 365 days and meeting all other requirements Future Appointments Date Type Provider Dept 02/19/24 Appointment Ángel Smith MD [facility] future appointments within next 90 days and meeting all other requirements STAYER * Telephone Encounter - Ariana Arboleda RN - 01/15/2024 2:35 PM SEAM STAYER Dispensed Days Supply Quantity Provider Pharmacy HYDROCO/APAP TAB 5-325MG 12/26/2023 10 40 Tablet Ángel Smith MD [facility] Bet... STAYER documented in this encounter Plan of Treatment Upcoming Encounters Date Type Department Care Team (Late st Contact Info) Description 07/16/2024 7:15 AM CDT Office Visit [facility] [place] [address] Á[facility]el [facility] [address] [address] documented as of this encounter Visit Diagnoses Diagnosis Chronic midline low back pain without sciatica documented in this encounter Additional Health Concerns Assessment Noted Time PHQ-9 Depression Total Score: 0 04/27/19 24 3:12 PM CDT documented as of this encounter Care Teams Collections Assistant Relationship Specialty Start Date End Date Ángel Smith MD #[address] [address] PCP - General Family Medicine 06/07/16 Ovidio Callahan MD [address] [facility] [address] [place] [address] Consulting Physician Obstetrics & Gynecology 02/23/18 documented as of this encounter
--- OUTSIDE RECORDS SUMMARY | 2024-06-26 11:35 | XMS_ITS | Encounter Summary ---
Author Organization [facility] Address [address] [place] [address] Phone Care Team Providers Care Utilities Manager Name Role Phone Ángel Smith MD Primary Care Provider Ovidio Callahan MD Unavailable [phone] Reason for Visit * Reason Comments Medication Refill Encounter Details Date Type Department Care Team (Late st Contact Info) Description 10/30/2020 Refill [facility] [address] [place], [place] [id number] Ángel Smith MD #[address] [address] Medication Refill Social History Tobacco Use Types [...] Telephone Encounter - Ángel Smith MD - 10/30/2020 8:41 AM CDT Prescription approved. Please call in * Telephone Encounter - Sravani Hair RN - 10/30/2020 8:40 AM CDT Medication failed the protocol, provider to review and approve the medication order if appropriate. Requested Prescriptions Pending Prescriptions Disp Refills losartan (COZAAR) 50 MG Tablet [Pharmacy Med Name: LOSARTAN POTASSIUM 50 MG TA 50 Tablet] 30 Tablet2 Sig: TAKE 1 TAB BY MOUTH DAILY. ARB Protocol Failed - 10/30/2020 8:19 AM Failed - Serum potassium on record in past 12 months No results found for: POTASSIUM, POCTK Failed - GFR on record in past 12 months No results found for: GFRNA Passed - BP on record in the past year Clinician-entered: BP Readings from Last 3 Encounters: 09/29/20 (!) 162/104 05/12/20 116/68 10/14/19 118/76 Patient-entered: No data recorded Passed - No positive test in the past 12 months or most recent test was negative Passed - Visit with relevant provider in past year or upcoming 90 days Recent Visits Date Type Provider Dept 09/29/20 Office Visit Jorge Abdalla APN, SHEET [employer]EM[employer] [facility] 05/12/20 Office Visit [facility] MD [facility] 02/18/20 Telemedicine Ángel Smith MD [facility] Showing recent visits within past 365 days and meeting all other requirements Future Appointments Date Type Provider Dept 12/30/20 Appointment Ángel Smith MD [facility] Showing future appointments within next 90 days and meeting all other requirements Passed - No active on record documented in this encounter Plan of Treatment Upcoming Encounters Date Type Department Care Team (Late st Contact Info) Description 07/16/2024 7:15 AM CDT Office Visit [facility] - Family Medicine - [place] [address] [place] [address] Ángel Smith MD [address] [place] [address] documented as of this encounter Visit Diagnoses Not on filedocumented in this encounter Additional Health Concerns Assessment Noted Time PHQ-9 Depression Total Score: 0 05/13/19 21 6:06 PM CDT documented as of this encounter Care Teams Utilities Manager Relationship Specialty Start Date End Date Ángel Smith MD #[address] [facility] [place] [address] PCP - General Family Medicine 06/07/16 Ovidio Callahan MD 4 [facility] [address] [place] [address] Consulting Physician Obstetrics & Gynecology 02/23/18 documented as of this encounter
--- OUTSIDE RECORDS SUMMARY | 2024-06-26 11:35 | XMS_ITS | Encounter Summary ---
Author Organization [facility] Address [address] [place] [address] Phone Care Team Providers Care Resource Manager Forester Name Role Phone Ángel Smith MD Primary Care Provider Ovidio Callahan MD Unavailable [phone] Reason for Visit * Reason Comments Medication Refill Encounter Details Date Type Department Care Team (Late st Contact Info) Description 01/17/2024 Refill [facility] #2 [place] [address] Ángel Smith MD #[address] [address] Medication Refill Social History Tobacco Use Types [...] encounter Miscellaneous Notes * Telephone Encounter - Ariana Arboleda RN - 01/17/2024 3:34 PM MUSEUM OR ZOO DIRECTOR Patient was last seen on 11/14/2023 and her next appointment is for 02/19/2024 for a 3 month follow up. She is seen every 3 months for her prescription. Dispensed Days Supply Quantity Provider Pharmacy HYDROCO/APAP TAB 5-325MG 12/26/2023 10 40 Tablet Ángel Smith MD [facility] Medication failed the protocol, provider to review and approve the medication order if appropriate. Requested Prescriptions Pending Prescriptions Disp Refills HYDROcodone-acetaminophen (NORCO) 5-325 MG Tablet [Pharmacy Med Name: HYDROCODONE BITARTRATE/ACETAMINOPHEN 5-325MG TABLET] 40 Tablet 0 Sig: TAKE 1 TABLET BY MOUTH EVERY SIX (6) HOURS NEEDED FOR MODERATE OR MORE SEVERE PAIN. Not Delegated - Opioid Combinations Protocol Failed - 01/17/2024 2:38 PM Failed - This refill cannot be delegated Passed - Visit with relevant provider in past 12 months or upcoming 90 days Recent Visits Date Type Provider Dept 11/14/23 Office Visit Ángel Smith MD [facility] 08/15/23 Office Visit Ángel Smith MD [facility] 04/27/23 Office Visit Ángel Smith MD [facility] Showing recent visits within past 365 days and meeting all other requirements Future Appointments Date Type Provider Dept 02/19/24 Appointment Ángel Smith MD [facility] future appointments within next 90 days and meeting all other requirements UM OR ZOO DIRECTOR * Telephone Encounter - Ariana Arboleda RN - 01/17/2024 3:33 PM MUSEUM OR ZOO DIRECTOR Patient was last seen on 11/14/2023 and her next appointment is for 02/19/2024 for a 3 month follow up. She is seen every 3 months for her prescription. Dispensed Days Supply Quantity Provider Pharmacy HYDROCO/APAP TAB 5-325MG 12/26/2023 10 40 Tablet Ángel Smith MD [facility] UM OR ZOO DIRECTOR documented in this encounter Plan of Treatment Upcoming Encounters Date Type Department Care Team (Late st Contact Info) Description 07/16/2024 7:15 AM CDT [facility] Visit [facility] [address] [place] [address] Ángel Smith MD #[address] [address] documented as of this encounter Visit Diagnoses Diagnosis Chronic midline low back pain without sciatica documented in this encounter Additional Health Concerns Assessment Noted Time PHQ-9 Depression Total Score: 0 04/27/19 24 3:12 PM CDT documented as of this encounter Care Teams Resource Manager Forester Relationship Specialty Start Date End Date Ángel Smith MD [address] [address] PCP - General Family Medicine 06/07/16 Ovidio Callahan MD [address] [place] [address] [facility] [address] [place] [address] Consulting Physician Obstetrics & Gynecology 02/23/18 documented as of this encounter
--- OUTSIDE RECORDS SUMMARY | 2024-06-26 11:35 | XMS_ITS | Encounter Summary ---
Author Organization [facility] Address [address] [place] [address] Phone Care Team Providers Care Accounting Officer Name Role Phone Ángel Smith MD Primary Care Provider Ovidio Callahan MD Unavailable [phone] Reason for Visit * Reason Comments Medication Refill norco Encounter Details Date Type Department Care Team (Late st Contact Info) Description 09/16/2019 Refill [facility] #2 [place] [address] Ángel Smith MD #[address] [address] Medication Refill (norco) Social History Tobacco Use Types Packs/Day Years [...] Telephone Encounter - Ángel Smith MD - 09/19/2019 3:30 PM CDT Prescription pending signature * Telephone Encounter - Serenity Michel RN - 09/19/2019 12:25 PM CDT PAOLA: 12-25-2018 In the office 05-21-2019 via telemedicine for anxiety, back pain, HTN Next OV: 09-23-2019 documented in this encounter Plan of Treatment Upcoming Encounters Date Type Department Care Team (Late st Contact Info) Description 07/16/2024 7:15 AM CDT Office Visit [facility] - Family Medicine [facility] #[address] [place] [address] Ángel Smith MD #[address] [address] documented as of this encounter Visit Diagnoses Not on filedocumented in this encounter Additional Health Concerns Assessment Noted Time PHQ-9 Depression Total Score: 0 06/01/19 19 2:00 PM CDT documented as of this encounter Care Teams Accounting Officer Relationship Specialty Start Date End Date Ángel Smith MD [address] [address] PCP - General Family Medicine 06/07/16 Ovidio Callahan MD [address] [place] [address] [address] [place] [address] Consulting Physician Obstetrics & Gynecology 02/23/18 documented as of this encounter
--- OUTSIDE RECORDS SUMMARY | 2024-06-26 11:35 | XMS_ITS | Encounter Summary ---
Author Organization [facility] Address [address] [place] [address] Phone Care Team Providers Care Machine Clothing Man Name Role Phone Ángel Smith MD Primary Care Provider [phone] Ovidio Callahan MD Unavailable [phone] Reason for Visit * Reason Comments Medication Refill Encounter Details Date Type Department Care Team (Late st Contact Info) Description 10/14/2019 Refill [facility] #2 [place] [address] Ángel Smith MD #[address] [address] Medication Refill Social History Tobacco Use Types [...] or suspected to have Coronavirus / COVID-19? No / Unsure 10/14/2019 5:54 PM CDT documented as of this encounter Miscellaneous Notes * Telephone Encounter - Ángel Smith MD - 10/15/2019 6:58 AM CDT Prescription pending signature * Telephone Encounter - Areli Amador RN - 10/14/2019 5:40 PM CDT Pended refill to PCP documented in this encounter Plan of Treatment Upcoming Encounters Date Type Department Care Team (Late st Contact Info) Description 07/16/2024 7:15 AM CDT Office Visit [facility] - Family Medicine [facility] #2 [place] [address] Ángel Smith MD #[address] [address] documented as of this encounter Visit Diagnoses Not on filedocumented in this encounter Additional Health Concerns Assessment Noted Time PHQ-9 Depression Total Score: 0 06/01/19 19 2:00 PM CDT documented as of this encounter Care Teams Machine Clothing Man Relationship Specialty Start Date End Date Ángel Smith MD #[address] [address] PCP - General Family Medicine 06/07/16 Ovidio Callahan MD 4 [facility] [address] [place] [address] Consulting Physician Obstetrics & Gynecology 02/23/18 documented as of this encounter
--- OUTSIDE RECORDS SUMMARY | 2024-06-26 11:35 | XMS_ITS | Encounter Summary ---
Author Organization [facility] Address [address] [place] [address] Phone Care Team Providers Care Reversal Print Inspector Name Role Phone Ángel Smith MD Primary Care Provider Ovidio Callahan MD Unavailable [phone] Reason for Visit * Reason Comments Medication Refill Encounter Details Date Type Department Care Team (Late st Contact Info) Description 07/18/2019 Refill [facility] #2 [place] [address] Ángel Smith MD #[address] [address] Medication Refill Social History Tobacco Use Types [...] Telephone Encounter - Ángel Smith MD - 07/18/2019 11:02 AM CDT Prescription pending signature * Telephone Encounter - Maite Batista RN - 07/18/2019 10:34 AM CDT Requested Prescriptions Pending Prescriptions Disp Refills HYDROcodone-acetaminophen (NORCO) 5-325 MG Tablet [Pharmacy Med Name: HYDROCODON-APAP 5-325 5-325 TAB] 90 Tab 0 Sig: Take 1 Tab by mouth every 4 hours as needed (pain). Not Delegated - Analgesics: Opioid Agonist Combinations Failed - 07/18/2019 8:59 AM Failed - This refill cannot be delegated Passed - Valid encounter within last 6 months Past Office Visits Recent Outpatient Visits 1 month ago Anxiety [facility] Ángel Smith MD 6 months ago An[facility] Ángel Smith MD 10 months ago Abscess [facility] Eboni Bonilla APN, MAGNETIC PROSPECTOR 11 months ago Chronic midline low back pain without sciatica [facility] Ángel Smith MD 1 year ago Neurological deficit present [facility] Ángel Smith MD Upcoming Appointments Future Appointments In 2 months Ángel Smith MD [facility], [facility] Powered by [employer] - 07/18/2019 8:59 AM This is a duplicate request of medication requested 2019-07-15. Check to see if the patient is requesting a refill from a new pharmacy. documented in this encounter Plan of Treatment Upcoming Encounters Date Type Department Care Team (Late st Contact Info) Description 07/16/2024 7:15 AM CDT [facility]2 [place] [address] Ángel Smith MD #[address] [address] documented as of this encounter Visit Diagnoses Not on filedocumented in this encounter Additional Health Concerns Assessment Noted Time PHQ-9 Depression Total Score: 0 06/01/19 19 2:00 PM CDT documented as of this encounter Care Teams Reversal Print Inspector Relationship Specialty Start Date End Date Ángel Smith MD #2 [facility] [address] [place] [address] PCP - General Family Medicine 06/07/16 Ovidio Callahan MD [address] [facility] [address] [place] [address] Consulting Physician Obstetrics & Gynecology 02/23/18 documented as of this encounter
--- OUTSIDE RECORDS SUMMARY | 2024-06-26 11:35 | XMS_ITS | Encounter Summary ---
Author Organization [facility] Address [address] [place] [address] Phone Care Team Providers Care Sales Representative Printing Supplies Name Role Phone Ángel Smith MD Primary Care Provider Ovidio Callahan MD Unavailable [phone] Reason for Visit * Reason Comments Medication Refill Encounter Details Date Type Department Care Team (Late st Contact Info) Description 10/17/2019 Refill [facility] #2 [place] [address] Ángel Smith MD #[address] [address] Medication Refill Social History Tobacco Use Types [...] Telephone Encounter - Ángel Smith MD - 10/18/2019 9:05 AM CDT Prescription pending signature * Telephone Encounter - Shahana Liang RN - 10/18/2019 8:38 AM CDT Medication failed the protocol, provider to review and approve the medication order. Requested Prescriptions Pending Prescriptions Disp Refills HYDROcodone-acetaminophen (NORCO) 5-325 MG Tablet [Pharmacy Med Name: HYDROCODON-APAP 5-325 5-325 TAB] 90 Tab 0 Sig: TAKE 1 TAB BY MOUTH EVERY 4 HOURS NEEDED (PAIN). There is no refill protocol information for this order documented in this encounter Plan of Treatment Upcoming Encounters Date Type Department Care Team (Late st Contact Info) Description 07/16/2024 7:15 AM CDT Office Visit [facility] - [facility] - [place] #2 [place] [address] Ángel Smith MD #[address] [address] documented as of this encounter Visit Diagnoses Not on filedocumented in this encounter Additional Health Concerns Assessment Noted Time PHQ-9 Depression Total Score: 0 06/01/19 19 2:00 PM CDT documented as of this encounter Care Teams Sales Representative Printing Supplies Relationship Specialty Start Date End Date Ángel Smith MD #[address] [address] PCP - General Family Medicine 06/07/16 Ovidio Callahan MD [address] [place] [address] [facility] [address] [facility] [place] [address] Consulting Physician Obstetrics & Gynecology 02/23/18 documented as of this encounter
--- OUTSIDE RECORDS SUMMARY | 2024-06-26 11:35 | XMS_ITS | Encounter Summary ---
Author Organization [facility] Address [address] [place] [address] Phone Care Team Providers Care Playground Director Name Role Phone Ángel Smith MD Primary Care Provider Ovidio Callahan MD Unavailable [phone] Reason for Visit * Reason Comments Medication Refill Encounter Details Date Type Department Care Team (Late st Contact Info) Description 11/17/2020 [facility]ill [facility] #2 [place] [address] Ángel Smith MD #[address] [address] Medication Refill Social History Tobacco Use Types [...] Telephone Encounter - Ángel Smith MD - 11/17/2020 2:27 PM CDT Prescription pending signature * Telephone Encounter - Maite Padilla RN - 11/17/2020 2:04 PM CDT [place] 10/27/20 for 20 days - last appt 09/29/20 - follow up 12/30/20 Medication failed the protocol, provider to review and approve the medication order if appropriate. Requested Prescriptions Pending Prescriptions Disp Refills ALPRAZolam (XANAX) 1 MG Tablet [Pharmacy Med Name: ALPRAZOLAM 1 MG TABS 1 Tablet] 60 Tablet 0 Sig: TAKE 1 TABLET BY MOUTH 3 TIMES DAILY NEEDED FOR ANXIETY. There is no refill protocol information for this order documented in this encounter Plan of Treatment Upcoming Encounters Date Type Department Care Team (Late st Contact Info) Description 07/16/2024 7:15 AM CDT Office Visit [facility] #2 [place] [address] Ángel Smith MD #[address] [address] documented as of this encounter Visit Diagnoses Diagnosis Anxiety Anxiety state, unspecified documented in this encounter Additional Health Concerns Assessment Noted Time PHQ-9 Depression Total Score: 0 05/13/19 21 6:06 PM CDT documented as of this encounter Care Teams Playground Director Relationship Specialty Start Date End Date Ángel Smith MD #2 [facility] [place] [address] PCP - General Family Medicine 06/07/16 Ovidio Callahan MD [address] [place] [address] [facility] [address] [place] [address] Consulting Physician Obstetrics & Gynecology 02/23/18 documented as of this encounter
--- OUTSIDE RECORDS SUMMARY | 2024-06-26 11:36 | XMS_ITS | Encounter Summary ---
Author Organization [facility] Address [address] [place] [address] Phone Care Team Providers Care Field Sales Executive Name Role Phone Ángel Smith MD Primary Care Provider Ovidio Callahan MD Unavailable [phone] Reason for Visit * Reason Comments Medication Refill Encounter Details Date Type Department Care Team (Late st Contact Info) Description 12/15/2022 Refill [facility] #2 [place] [address] Ángel Smith MD #[address] [address] Medication Refill Social History Tobacco Use Types Packs/Day Years Used Date Smoking Tobacco: Light Smoker Cigarettes 0.3 15 Smokeless Tobacco: Never Comments:Smoked for 15 years on and off;about 3 a day Alcohol Use Standard Drinks/Week Comments Not Currently 0 (1 standard drink = 0.6 oz pur e alcohol) wine here and there PHQ-2 Answer Date Recorded Total Score - Questions 1-9 0 06/14 Education Answer Date Recorded What is the [...] Exposure Response Date Recorded In the last 10 days, have yo u been in contact with someone who was confirmed or suspected to have Coronavirus/COVID-19? No / Unsure 11/22/2022 5:28 PM CDT documented as of this encounter Miscellaneous Notes * Telephone Encounter - Maite Padilal RN - 12/16/2022 11:35 AM CDT PDMP 11/18/22 Medication failed the protocol, provider to review and approve the medication order if appropriate. Requested Prescriptions Pending Prescriptions Disp Refills HYDROcodone-acetaminophen (NORCO) 5-325 MG Tablet [Pharmacy Med Name: HYDROCODONE BITARTRATE/ACETAMINOPHEN 5-325MG TABLET] 60 Tablet 0 Sig: TAKE ONE (1) TO TWO (2) TABLETS BY MOUTH EVERY 8 HOURS NEEDED FOR MODERATE OR MORE SEVERE PAIN. Not Delegated - Opioid Combinations Protocol Failed - 12/15/2022 4:26 PM Failed - This refill cannot be delegated Passed - Visit with relevant provider in past 12 months or upcoming 90 days Recent Visits Date Type Provider Dept 11/22/22 Office Visit Ángel Smith MD [facility] 08/02/22 Office Visit Ángel Smith MD [facility] 04/13/22 Office Visit Ángel Smith MD [facility] 01/12/22 Office Visit Ángel Smith MD [facility] Showing recent visits within past 365 days and meeting all other requirements Future Appointments Date Type Provider Dept 02/23/23 Appointment Ángel Smith MD [facility] Showing future appointments within next 90 days and meeting all other requirements documented in this encounter Plan of Treatment Upcoming Encounters Date Type Department Care Team (Late st Contact Info) Description 07/16/2024 7:15 AM CDT Office Visit [facility] - Family Medicine - [place] [address] [place] [address] Ángel Smith MD #[address] [address] documented as of this encounter Visit Diagnoses Diagnosis Chronic midline low back pain without sciatica documented in this encounter Additional Health Concerns Assessment Noted Time PHQ-9 Depression Total Score: 0 12/31/19 21 11:20 AM POST ADOPTION COORDINATOR documented as of this encounter Care Teams Field Sales Executive Relationship Specialty Start Date End Date Ángel Smith MD #2 [facility] [address] [place] [address] PCP - General Family Medicine 06/07/16 Ovidio Callahan MD 4 [facility] [address] [place] [address] Consulting Physician Obstetrics & Gynecology 02/23/18 documented as of this encounter
--- OUTSIDE RECORDS SUMMARY | 2024-06-26 11:36 | XMS_ITS | Encounter Summary ---
Author Organization [facility] Address [address] [place] [address] Phone Care Team Providers Care Family Practice Nurse Practitioner Name Role Phone Ángel Smith MD Primary Care Provider Ovidio Callahan MD Unavailable [phone] Reason for Visit * Reason Comments Medication Refill Encounter Details Date Type Department Care Team (Late st Contact Info) Description 02/08/2023 Refill [facility] #2 [place] [address] Ángel Smith MD #[address] [address] Medication Refill Social History Tobacco Use Types [...] Telephone Encounter - Maite Padilla RN - 02/08/2023 11:41 AM CST PDMP 01/11/23 Medication failed the protocol, provider to review and approve the medication order if appropriate. Requested Prescriptions Pending Prescriptions Disp Refills ALPRAZolam (XANAX) 1 MG Tablet [Pharmacy Med Name: ALPRAZOLAM 1MG TABLET] 60 Tablet 0 Sig: TAKE 1 TABLET BY MOUTH TWO (2) TIMES DAILY NEEDED FOR ANXIETY. Not Delegated - Benzodiazepines Protocol Failed - 02/08/2023 9:00 AM Failed - This refill cannot be delegated Passed - Visit with relevant provider in past 12 months or upcoming 90 days Recent Visits Date Type Provider Dept 11/22/22 Office Visit Ángel Smith MD [facility] 08/02/22 Office Visit Ángel Smith MD [facility] 04/13/22 Office Visit Ángel Smith MD [facility] Showing recent visits within past 365 days and meeting all other requirements Future Appointments Date Type Provider Dept 02/23/23 Appointment Ángel Smith MD [facility] Showing future appointments within next 90 days and meeting all other requirements HYDROcodone-acetaminophen (NORCO) 5-325 MG Tablet [Pharmacy Med Name: HYDROCODONE BITARTRATE/ACETAMINOPHEN 5-325MG TABLET] 50 Tablet 0 Sig: Take 1 Tablet by mouth every 8 hours as needed for Mild or more severe pain. Not Delegated - Opioid Combinations Protocol Failed - 02/08/2023 9:00 AM Failed - This refill cannot be delegated Passed - Visit with relevant provider in past 12 months or upcoming 90 days Recent Visits Date Type Provider Dept 11/22/22 Office Visit Ángel Smith MD [facility] 08/02/22 Office Visit Ángel Smith MD [facility] 04/13/22 Office Visit Ángel Smith MD [facility] Showing recent visits within past 365 days and meeting all other requirements Future Appointments Date Type Provider Dept 02/23/23 Appointment Ángel Smith MD [facility] Showing future appointments within next 90 days and meeting all other requirements NCE ANALYST documented in this encounter Plan of Treatment Upcoming Encounters Date Type Department Care Team (Late st Contact Info) Description 07/16/2024 7:15 AM CDT Office Visit [facility] - [facility] #[address] [place] [address] Ángel Smith MD #2 [facility] [address] [place] [address] documented as of this encounter Visit Diagnoses Diagnosis Anxiety Anxiety state, unspecified Chronic midline low back pain without sciatica documented in this encounter Additional Health Concerns Assessment Noted Time PHQ-9 Depression Total Score: 0 12/31/19 21 11:20 AM SCIENCE ANALYST documented as of this encounter Care Teams Family Practice Nurse Practitioner Relationship Specialty Start Date End Date Ángel Smith MD #2 [facility] [place] [address] PCP - General Family Medicine 06/07/16 Ovidio Callahan MD [address] [facility] [address] [place] [address] Consulting Physician Obstetrics & Gynecology 02/23/18 documented as of this encounter
--- OUTSIDE RECORDS SUMMARY | 2024-06-26 11:36 | XMS_ITS | Encounter Summary ---
Author Organization [facility] Address [address] [place] [address] Phone Care Team Providers Care Fixture Builder Name Role Phone Ángel Smith MD Primary Care Provider [phone] Ovidio Callahan MD Unavailable [phone] Reason for Visit * Reason Comments Medication Refill Encounter Details Date Type Department Care Team (Late st Contact Info) Description 05/05/2020 Refill [facility] #2 [place] [address] Ángel Smith MD #[address] [address] Medication Refill Social History Tobacco Use Types [...] have Coronavirus / COVID-19? No / Unsure 05/05/2020 1:22 PM CDT documented as of this encounter Miscellaneous Notes * Telephone Encounter - Ángel Smith MD - 05/06/2020 10:16 AM CDT Prescription pending signature * Telephone Encounter - Maite Padilla RN - 05/06/2020 8:55 AM CDT [place] 04/10/20 Medication failed the protocol, provider to review and approve the medication order if appropriate. Requested Prescriptions Pending Prescriptions Disp Refills HYDROcodone-acetaminophen (NORCO) 5-325 MG Tablet [Pharmacy Med Name: HYDROCODON-APAP 5-325MG TAB 5-325 Tablet] 75 Tablet 0 Sig: TAKE 1 TABLET BY MOUTH EVERY 4 HOURS NEEDED (PAIN). Not Delegated - Analgesics: Opioid Agonist Combinations Failed - 05/06/2020 8:53 AM Failed - This refill cannot be delegated Passed - Valid encounter within last 6 months Past Office Visits Recent Outpatient Visits 2 months ago Chronic midline low back pain without sciatica [facility] - Ángel Diop MD 6 months ago Anxiety [facility] Ángel Diop MD 11 months ago Anxiety [facility] Ángel Diop MD 1 year ago Anxiety [facility] Ángel Diop MD 1 year ago [facility], GREASE CUP FILLER Upcoming Appointments Future Appointments In 6 days Ángel Smith MD [facility] - Recent and Past Visits Recent Visits Date Type Provider Dept 02/18/20 Telemedicine Ángel Smith MD [facility] 10/14/19 Office Visit Ángel Smith MD [facility] 05/21/19 Telemedicine Ángel Smith MD [facility] Showing recent visits within past 460 days with a meds authorizing provider and meeting all other requirements Future Appointments Date Type Provider Dept 05/12/20 Appointment Ángel Smith MD [facility] Showing future appointments within next 90 days with a meds authorizing provider and meeting all other requirements ALPRAZolam (XANAX) 1 MG Tablet [Pharmacy Med Name: ALPRAZOLAM 1 MG TAB 1 Tablet] 60 Tablet 0 Sig: TAKE 1 TABLET BY MOUTH 3 TIMES DAILY NEEDED FOR ANXIETY. Not Delegated - Psychiatry: Anxiolytics/Hypnotics Failed - 05/06/2020 8:53 AM Failed - This refill cannot be delegated Passed - Valid encounter within last 6 months Past Office Visits Recent Outpatient Visits 2 months ago Chronic midline low back pain without sciatica [facility] Ángel Diop MD 6 months ago Anxiety [facility] Ángel Diop MD 11 months ago Anxiety [facility] Ángel Diop MD 1 year ago [facility] [address] [facility] Eboni Bonilla, UROLOGY PHYSICIAN, GREASE CUP FILLER Upcoming Appointments Future Appointments In 6 days Ángel Smith MD [facility] - Recent and Past Visits Recent Visits Date Type Provider Dept 02/18/20 Telemedicine Ángel Smith MD [facility] 10/14/19 Office Visit Ángel Smith MD [facility] 05/21/19 [facility]icine [facility] within past 460 days with a meds authorizing provider and meeting all other requirements Future Appointments Date Type Provider Dept 05/12/20 Appointment Ángel Smith MD [facility] Showing future appointments within next 90 days with a meds authorizing provider and meeting all other requirements documented in this encounter Plan of Treatment Upcoming Encounters Date Type Department Care Team (Late st Contact Info) Description 07/16/2024 7:15 AM CDT Office Visit [facility] #2 [place] [address] Ángel Smith MD #[address] [address] documented as of this encounter Visit Diagnoses Not on filedocumented in this encounter Additional Health Concerns Assessment Noted Time PHQ-9 Depression Total Score: 0 06/01/19 19 2:00 PM CDT documented as of this encounter Care Teams Fixture Builder Relationship Specialty Start Date End Date Ángel Smith MD #2 [facility] [address] [place] [address] PCP - General Family Medicine 06/07/16 Ovidio Callahan MD [address] [facility] [address] [place] [address] Consulting Physician Obstetrics & Gynecology 02/23/18 documented as of this encounter
--- OUTSIDE RECORDS SUMMARY | 2024-06-26 11:36 | XMS_ITS | Encounter Summary ---
Author Organization [facility] Address [address] [place] [address] Phone Care Team Providers Care Health And Physical Education Teacher Name Role Phone Ángel Smith MD Primary Care Provider [phone] Ovidio Callahan MD Unavailable [phone] Reason for Visit * Reason Comments Medication Refill Encounter Details Date Type Department Care Team (Late st Contact Info) Description 03/13/2023 Refill [facility] #2 [place] [address] Ángel Smith MD #[address] [address] Medication Refill Social History Tobacco Use Types [...] on file documented as of this encounter Plan of Treatment Upcoming Encounters Date Type Department Care Team (Late st Contact Info) Description 07/16/2024 7:15 AM CDT Office Visit [facility] - Family Medicine [facility] #2 [place] [address] Ángel Smith MD #2 [facility] [address] [place] [address] documented as of this encounter Visit Diagnoses Diagnosis Anxiety Anxiety state, unspecified Chronic midline low back pain without sciatica documented in this encounter Additional Health Concerns Assessment Noted Time PHQ-9 Depression Total Score: 0 12/31/19 21 11:20 AM TOOLING ENGINEER documented as of this encounter Care Teams Health And Physical Education Teacher Relationship Specialty Start Date End Date Ángel Smith MD #[address] [facility] [place] [address] PCP - General Family Medicine 06/07/16 Ovidio Callahan MD [address] [facility] [address] [place] [address] Consulting Physician Obstetrics & Gynecology 02/23/18 documented as of this encounter
--- OUTSIDE RECORDS SUMMARY | 2024-06-26 11:36 | XMS_ITS | Encounter Summary ---
Author Organization [facility] Address [address] [place] [address] Phone Care Team Providers Care Milk Route Supervisor Name Role Phone Ángel Smith MD Primary Care Provider Ovidio Callahan MD Unavailable [phone] Reason for Visit * Reason Comments Medication Refill Encounter Details Date Type Department Care Team (Late st Contact Info) Description 05/11/2023 Refill [facility] #2 [place] [address] Ángel Smith MD #[address] [address] Medication Refill Social History Tobacco Use Types [...] Telephone Encounter - Maite Padilla RN - 05/12/2023 8:36 AM CDT Pt is aware she needs a new drug screen. This has not been done yet. Dr Smith will not refill theseuntil this is completed. You can see previous messages for more information. documented in this encounter Plan of Treatment Upcoming Encounters Date Type Department Care Team (Late st Contact Info) Description 07/16/2024 7:15 AM CDT Office Visit [facility] - Family Medicine [facility] #2 [facility] [place] [address] Ángel Smith MD #2 [place] [address] documented as of this encounter Visit Diagnoses Diagnosis Anxiety Anxiety state, unspecified Chronic midline low back pain without sciatica documented in this encounter Additional Health Concerns Assessment Noted Time PHQ-9 Depression Total Score: 0 04/27/19 24 3:12 PM CDT documented as of this encounter Care Teams Milk Route Supervisor Relationship Specialty Start Date End Date Ángel Smith MD #2 [facility] [address] [address] PCP - General Family Medicine 06/07/16 Ovidio Callahan MD [address] [place] [address] [address] [place] [address] Consulting Physician Obstetrics & Gynecology 02/23/18 documented as of this encounter
--- OUTSIDE RECORDS SUMMARY | 2024-06-26 11:36 | XMS_ITS | Encounter Summary ---
Author Organization [facility] Address [address] [place] [address] Phone Care Team Providers Care Lockstitch Tunnel Elastic Operator Name Role Phone Ángel Smith MD Primary Care Provider Ovidio Callahan MD Unavailable [phone] Reason for Visit * Reason Comments Medication Refill Encounter Details Date Type Department Care Team (Late st Contact Info) Description 10/27/2020 Refill [facility] - [place] #2 [place] [id number] Jorge Abdalla APRN, TECHNOLOGY TEACHER #[address] [address] Medication Refill Social History Tobacco Use Types [...] have Coronavirus / COVID-19? No / Unsure 09/28/2020 12:54 PM CDT documented as of this encounter Miscellaneous Notes * Telephone Encounter - Ángel Smith MD - 10/27/2020 5:34 PM CDT Prescription pending signature * Telephone Encounter - Jorge Abdalla APN, CNP - 10/27/2020 12:57 PM CDT Forwarding to PCP * Telephone Encounter - Bisi Carrera RN - 10/27/2020 11:33 AM CDT Medication failed the protocol, provider to review and approve the medication order if appropriate. Last OV 09/30/20, F/U 12/30/20, Last UDS 05/12/20 Compliant, [place] Rx per [place] PDMP Review 08/25/20 Bisi AVILEZ Requested Prescriptions Pending Prescriptions Disp Refills ALPRAZolam [...] Description 07/16/2024 7:15 AM CDT Office Visit [facility] - Family Medicine [facility] #[address] [place] [address] Ángel Smith MD #[address] [address] documented as of this encounter Visit Diagnoses Diagnosis Anxiety Anxiety state, unspecified documented in this encounter Additional Health Concerns Assessment Noted Time PHQ-9 Depression Total Score: 0 05/13/19 21 6:06 PM CDT documented as of this encounter Care Teams Lockstitch Tunnel Elastic Operator Relationship Specialty Start Date End Date Ángel Smith MD #2 [facility] [address] [place] [address] PCP - General Family Medicine 06/07/16 Ovidio Callahan MD 4 [facility] [address] [place] [address] Consulting Physician Obstetrics & Gynecology 02/23/18 documented as of this encounter
--- OUTSIDE RECORDS SUMMARY | 2024-06-26 11:36 | XMS_ITS | Encounter Summary ---
Author Organization [facility] Address [address] [place] [address] Phone Care Team Providers Care Carpenter Helper Maintenance Name Role Phone Ángel Smith MD Primary Care Provider Ovidio Callahan MD Unavailable [phone] Reason for Visit * Reason Comments Medication Refill Encounter Details Date Type Department Care Team (Late st Contact Info) Description 07/13/2023 Refill [facility] #2 [place] [address] Ángel Smith MD #[address] [address] Medication Refill Social History Tobacco Use Types [...] Telephone Encounter - Maite Padilla RN - 07/13/2023 11:31 AM CDT PDMP 06/15/23 Medication failed the protocol, provider to review and approve the medication order if appropriate. Requested Prescriptions Pending Prescriptions Disp Refills HYDROcodone-acetaminophen (NORCO) 5-325 MG Tablet [Pharmacy Med Name: HYDROCODONE BITARTRATE/ACETAMINOPHEN 5-325MG TABLET] 40 Tablet 0 Sig: TAKE 1 TABLET BY MOUTH EVERY 8 HOURS NEEDED FOR MODERATE OR MORE SEVERE PAIN. 5.2 Not Delegated - Opioid Combinations Protocol Failed - 07/13/2023 8:08 AM Failed - This refill cannot be delegated Passed - Visit with relevant provider in past 12 months or upcoming 90 days Recent Visits Date Type Provider Dept 04/27/23 Office Visit Ángel Smith MD [facility] 11/22/22 Office Visit Ángel Smith MD [facility] 08/02/22 Office Visit Ángel Smith MD [facility] Showing recent visits within past 365 days and meeting all other requirements Future Appointments Date Type Provider Dept 08/01/23 Appointment Ángel Smith MD [facility] Showing future appointments within next 90 days and meeting all other requirements ALPRAZolam (XANAX) 1 MG Tablet [Pharmacy Med Name: ALPRAZOLAM 1MG TABLET] 60 Tablet 0 Sig: TAKE 1 TABLET BY MOUTH TWO (2) TIMES DAILY NEEDED FOR ANXIETY. 5.2 Not Delegated - Benzodiazepines Protocol Failed - 07/13/2023 8:08 AM Failed - This refill cannot be delegated Passed - Visit with relevant provider in past 12 months or upcoming 90 days Recent Visits Date Type Provider Dept 04/27/23 Office Visit Ángel Smith MD [facility] 11/22/22 Office Visit Ángel Smith MD [facility] 08/02/22 Office Visit Ángel Smith MD [facility] Showing recent visits within past 365 days and meeting all other requirements Future Appointments Date Type Provider Dept 08/01/23 Appointment Ángel Smith MD [facility] Showing future appointments within next 90 days and meeting all other requirements documented in this encounter Plan of Treatment Upcoming Encounters Date Type Department Care Team (Late st Contact Info) Description 07/16/2024 7:15 AM CDT Office Visit [facility] #2 [place] [address] Ángel Smith MD #[address] [address] documented as of this encounter Visit Diagnoses Diagnosis Chronic midline low back pain without sciatica Anxiety Anxiety state, unspecified documented in this encounter Additional Health Concerns Assessment Noted Time PHQ-9 Depression Total Score: 0 04/27/19 24 3:12 PM CDT documented as of this encounter Care Teams Carpenter Helper Maintenance Relationship Specialty Start Date End Date Ángel Smith MD #[address] [address] PCP - General Family Medicine 06/07/16 Ovidio Callahan MD 4 [facility] [address] [place] [address] Consulting Physician Obstetrics & Gynecology 02/23/18 documented as of this encounter
--- OUTSIDE RECORDS SUMMARY | 2024-06-26 11:36 | XMS_ITS | Encounter Summary ---
Author Organization [facility] Address [address] [place] [place] [address] Phone Care Team Providers Care Vp Integration Name Role Phone Ángel Smith MD Primary Care Provider Ovidio Callahan MD Unavailable [phone] Reason for Visit * Reason Comments Medication Refill Encounter Details Date Type Department Care Team (Late st Contact Info) Description 11/14/2022 Refill [facility] #2 [place] [address] Ángel Smith MD #[address] [address] Medication Refill Social History Tobacco Use Types [...] Telephone Encounter - Maite Padilla RN - 11/15/2022 8:25 AM CDT Signed 5 days ago (11/10/2022): ALPRAZolam (XANAX) 1 MG Tablet Sig: TAKE 1 TABLET BY MOUTH THREE (3) TIMES DAILY NEEDED FOR ANXIETY. 8.31 Disp: 60 Tablet Â Â Refills: 0 Signed by: Ángel Smith MD [facility] documented in this encounter Plan of Treatment Upcoming Encounters Date Type Department Care Team (Late st Contact Info) Description 07/16/2024 7:15 AM CDT Office Visit [facility] - Family [facility] #2 [place] [address] Ángel Smith MD #[address] [address] documented as of this encounter Visit Diagnoses Diagnosis Anxiety Anxiety state, unspecified documented in this encounter Additional Health Concerns Assessment Noted Time PHQ-9 Depression Total Score: 0 12/31/19 21 11:20 AM SHOT EXAMINER documented as of this encounter Care Teams Vp Integration Relationship Specialty Start Date End Date Ángel Smith MD #[address] [address] PCP - General Family Medicine 06/07/16 Ovidio Callahan MD 4 [facility] [address] [place] [address] Consulting Physician Obstetrics & Gynecology 02/23/18 documented as of this encounter
--- OUTSIDE RECORDS SUMMARY | 2024-06-26 11:36 | XMS_ITS | Encounter Summary ---
Author Organization [facility] Address [address] [place] [address] Phone Care Team Providers Care Armhole Raiser Lockstitch Name Role Phone Ángel Smith MD Primary Care Provider Ovidio Callahan MD Unavailable [phone] Reason for Visit * Reason Comments Medication Refill Encounter Details Date Type Department Care Team (Late st Contact Info) Description 12/12/2022 Refill [facility] #2 [place] [address] Ángel Smith MD #[address] [address] Medication Refill Social History Tobacco Use Types [...] Telephone Encounter - Maite Padilla RN - 12/12/2022 2:16 PM CDT Signed Today (12/12/2022): ALPRAZolam (XANAX) 1 MG Tablet Sig: TAKE 1 TABLET BY MOUTH THREE (3) TIMES DAILY NEEDED FOR ANXIETY. 8.31 Disp: 60 Tablet Â Â Refills: 0 Signed by: Ángel Smith MD documented in this encounter Plan of Treatment Upcoming Encounters Date Type Department Care Team (Late st Contact Info) Description 07/16/2024 7:15 AM CDT Office Visit [facility] [address] [place] [address] Ángel Smith MD #[address] [address] documented as of this encounter Visit Diagnoses Diagnosis Anxiety Anxiety state, unspecified documented in this encounter Additional Health Concerns Assessment Noted Time PHQ-9 Depression Total Score: 0 12/31/19 21 11:20 AM COMIC BOOK ARTIST documented as of this encounter Care Teams Armhole Raiser Lockstitch Relationship Specialty Start Date End Date Ángel Smith MD #2 [address] [facility] [place] [address] PCP - General Family Medicine 06/07/16 Ovidio Callahan MD [address] [place] [address] [address] [place] [address] Consulting Physician Obstetrics & Gynecology 02/23/18 documented as of this encounter
--- OUTSIDE RECORDS SUMMARY | 2024-06-26 11:36 | XMS_ITS | Encounter Summary ---
Author Organization [facility] Address [address] [place] [address] Phone Care Team Providers Care Billet Sawyer Name Role Phone Ángel Smith MD Primary Care Provider [phone] Ovidio Callahan MD Unavailable [phone] Reason for Visit * Reason Comments Medication Refill Encounter Details Date Type Department Care Team (Late st Contact Info) Description 08/22/2020 Refill [facility] #2 [place] [address] Ángel Smith MD #[address] [address] Medication Refill Social History Tobacco Use Types [...] encounter Miscellaneous Notes * Telephone Encounter - Yovana Jackson RMA - 08/25/2020 1:12 PM CDT Scheduled appt for August the pt is asking for refill until then * Telephone Encounter - Maite Padilla RN - 08/24/2020 11:32 AM CDT Patient needs an appointment with PCP * Telephone Encounter - Maite Padilla RN - 08/24/2020 9:47 AM CDT [place] 07/25/20 - last appt 05/12/20 - no follow up Medication failed the protocol, provider to review [...] Description 07/16/2024 7:15 AM CDT Office Visit [facility] - Family Medicine [facility] #2 [place] [address] Ángel Smith MD #[address] [address] documented as of this encounter Visit Diagnoses Not on filedocumented in this encounter Additional Health Concerns Assessment Noted Time PHQ-9 Depression Total Score: 0 05/13/19 21 6:06 PM CDT documented as of this encounter Care Teams Billet Sawyer Relationship Specialty Start Date End Date Ángel Smith MD #[address] [address] PCP - General Family Medicine 06/07/16 Ovidio Callahan MD [address] [facility] [place] [address] Consulting Physician Obstetrics & Gynecology 02/23/18 documented as of this encounter
--- OUTSIDE RECORDS SUMMARY | 2024-06-26 11:36 | XMS_ITS | Encounter Summary ---
Author Organization [facility] Address [address] [place] [address] Phone Care Team Providers Care Consultant Nurse Name Role Phone Ángel Smith MD Primary Care Provider Ovidio Callahan MD Unavailable Reason for Visit * Reason Comments Medication Refill Encounter Details Date Type Department Care Team (Late st Contact Info) Description 09/01/2020 [facility]ill [facility] [address] [place], [place] [id number] Ángel Smith MD #[address] [address] Medication Refill Social History Tobacco Use Types [...] Telephone Encounter - Ángel Smith MD - 09/01/2020 4:34 PM CDT Prescription pending signature * Telephone Encounter - Maite Padilla RN - 09/01/2020 4:16 PM CDT Patient has appointment 09/07/20 * Telephone Encounter - Brenda Blackburn RN - 09/01/2020 3:35 PM CDT [place] last fill date 08/04/20 Medication failed the protocol, provider to review and approve the medication order if appropriate. Requested Prescriptions Pending Prescriptions Disp Refills HYDROcodone-acetaminophen (NORCO) 5-325 MG Tablet [Pharmacy Med Name: HYDROCODON-APAP 5-325MG TAB 5-325 Tablet] 60 Tablet Sig: TAKE 1 TABLET BY MOUTH EVERY 4 HOURS NEEDED FOR PAIN healthfinch Not Delegated - Analgesics: Opioid Agonist Combinations Failed - 09/01/2020 3:35 PM Failed - This refill cannot be delegated Passed - Valid encounter within last 6 months Past Office Visits Recent Outpatient Visits 3 months ago Physical exam, annual (Adult) [facility] - Ángel Diop MD 6 months ago Chronic midline low back pain without sciatica [facility] Ángel Diop MD 10 months ago Anxiety [facility] - Ángel Diop MD 1 year ago Anxiety [facility] Ángel Diop MD 1 year ago Anxiety [facility] Ángel Diop MD Upcoming Appointments Future Appointments In 6 days Ángel Smith MD [facility] - Recent and Past Visits Recent Visits Date Type Provider Dept 05/12/20 Office Visit Ángel Smith MD [facility] 02/18/20 Telemedicine Ángel Smith MD [facility] 10/14/19 Office Visit Á[facility] MD [facility] Showing recent visits within past 460 days with a meds authorizing provider and meeting all other requirements Future Appointments Date Type Provider Dept 09/07/20 Appointment Ángel Smith MD [facility] Showing future appointments within next 90 days with a meds authorizing provider and meeting all other requirements documented in this encounter Plan of Treatment Upcoming Encounters Date Type Department Care Team (Late st Contact Info) Description 07/16/2024 7:15 AM CDT Office Visit [facility] - Family Medicine [facility] #2 [place] [address] Ángel Smith MD #[address] [address] documented as of this encounter Visit Diagnoses Not on filedocumented in this encounter Additional Health Concerns Assessment Noted Time PHQ-9 Depression Total Score: 0 05/13/19 21 6:06 PM CDT documented as of this encounter Care Teams Consultant Nurse Relationship Specialty Start Date End Date Ángel Smith MD #[address] [address] PCP - General Family Medicine 06/07/16 Ovidio Callahan MD [address] [facility] [address] [place] [address] Consulting Physician Obstetrics & Gynecology 02/23/18 documented as of this encounter
--- OUTSIDE RECORDS SUMMARY | 2024-06-26 11:36 | XMS_ITS | Encounter Summary ---
Author Organization [facility] Address [address] [place] [address] Phone Care Team Providers Care Medical Interpreter Name Role Phone Ángel Smith MD Primary Care Provider [phone] Ovidio Callahan MD Unavailable [phone] Reason for Visit * Reason Comments Medication Refill Encounter Details Date Type Department Care Team (Late st Contact Info) Description 07/26/2023 Refill [facility] Medicine [facility] #2 [place] [address] Ángel Smith MD #[address] [address] Medication Refill Social History Tobacco Use Types [...] Telephone Encounter - Maite Padilla RN - 07/26/2023 10:23 AM CDT Images from the original note were not included. HYDROcodone-Acetaminophen Dispensed Days Supply Quantity Provider Pharmacy HYDROCO/APAP TAB 5-325MG 07/15/2023 13 40 Tablet Ángel Smith MD [facility]... HYDROCO/APAP TAB 5-325MG 06/15/2023 30 40 Tablet Ángel Smith MD [facility]... Medication failed the protocol, provider to review and approve the medication order if appropriate. Requested Prescriptions Pending Prescriptions Disp Refills HYDROcodone-acetaminophen (NORCO) 5-325 MG Tablet [Pharmacy Med Name: HYDROCODONE BITARTRATE/ACETAMINOPHEN 5-325MG TABLET] 40 Tablet 0 Sig: TAKE 1 TABLET BY MOUTH EVERY 8 HOURS NEEDED FOR MODERATE OR MORE SEVERE PAIN Not Delegated - Opioid Combinations Protocol Failed - 07/26/2023 7:44 AM Failed - This refill cannot be delegated Passed - Visit with relevant provider in past 12 months or upcoming 90 days Recent Visits Date Type Provider Dept 04/27/23 Office Visit Ángel Smith MD [facility] 11/22/22 Office Visit Ángel [facility] MD [facility] 08/02/22 [facility] visits within past 365 days and meeting all other requirements Future Appointments Date Type Provider Dept 08/01/23 Appointment Á[facility]el [facility] MD [facility] Show[facility] future appointments within next 90 days and meeting all other requirements documented in this encounter Plan of Treatment Upcoming Encounters Date Type Department Care Team (Late st Contact Info) Description 07/16/2024 7:15 AM CDT Office Visit [facility] - [place] #[address] [place] [address] Ángel Smith MD #[address] [address] documented as of this encounter Visit Diagnoses Diagnosis Chronic midline low back pain without sciatica documented in this encounter Additional Health Concerns Assessment Noted Time PHQ-9 Depression Total Score: 0 04/27/19 24 3:12 PM CDT documented as of this encounter Care Teams Medical Interpreter Relationship Specialty Start Date End Date Ángel Smith MD #2 [facility] [address] [place] [address] PCP - General Family Medicine 06/07/16 Ovidio Callahan MD [address] [facility] [address] [place] [address] Consulting Physician Obstetrics & Gynecology 02/23/18 documented as of this encounter
--- OUTSIDE RECORDS SUMMARY | 2024-06-26 11:36 | XMS_ITS | Encounter Summary ---
Author Organization [facility] Address [address] [place] [address] Phone Care Team Providers Care Bridge Repairer Name Role Phone Ángel Smith MD Primary Care Provider Ovidio Callahan MD Unavailable [phone] Reason for Visit * Reason Comments Medication Refill Encounter Details Date Type Department Care Team (Late st Contact Info) Description 07/30/2020 Refill [facility] #2 [place] [address] Ángel Smith MD #[address] [address] Medication Refill Social History Tobacco Use Types [...] Telephone Encounter - Maite Padilla RN - 07/30/2020 1:37 PM CDT [place] 07/05/20 Medication failed the protocol, provider to review and approve the medication order if appropriate. Requested Prescriptions Pending Prescriptions Disp Refills HYDROcodone-acetaminophen (NORCO) 5-325 MG Tablet [Pharmacy Med Name: HYDROCODON-APAP 5-325MG TAB 5-325 Tablet] 60 Tablet 0 Sig: TAKE 1 TABLET BY MOUTH EVERY 4 HOURS NEEDED FOR PAIN healthfinch Not Delegated - Analgesics: Opioid Agonist Combinations Failed - 07/30/2020 1:37 PM Failed - This refill cannot be delegated Passed - Valid encounter within last 6 months Past Office Visits Recent Outpatient Visits 2 months ago Physical exam, annual (Adult) [facility] Ángel Corbin MD 5 months ago Chronic midline low back pain without sciatica [facility] Ángel Diop MD 9 months ago Anxiety [facility] Ángel Diop MD 1 year ago Anxiety [facility] Ángel Diop MD 1 year ago Anxiety [facility] Ángel Diop MD Upcoming Appointments TICKET COUNTER - Recent and Past Visits Recent Visits Date Type Provider Dept 05/12/20 Office Visit Ángel Smith MD [facility] 02/18/20 Telemedicine Ángel Smith MD [facility] 10/14/19 Office Visit Ángel Smith MD [facility] 05/21/19 Telemedicine Ángel Smith MD [facility] Showing recent visits within past 460 days with a meds authorizing provider and meeting all other requirements Future Appointments No visits were found meeting these conditions. Showing future appointments within next 90 days with a meds authorizing provider and meeting all other requirements documented in this encounter Plan of Treatment Upcoming Encounters Date Type Department Care Team (Late st Contact Info) Description 07/16/2024 7:15 AM CDT Office Visit [facility] [place] [address] Ángel Smith MD [address] [facility] [place] [address] documented as of this encounter Visit Diagnoses Not on filedocumented in this encounter Additional Health Concerns Assessment Noted Time PHQ-9 Depression Total Score: 0 05/13/19 21 6:06 PM CDT documented as of this encounter Care Teams Bridge Repairer Relationship Specialty Start Date End Date Ángel Smith MD #2 [address] [facility] [place] [address] PCP - General Family Medicine 06/07/16 Ovidio Callahan MD 4 [facility] [address] [place] [address] Consulting Physician Obstetrics & Gynecology 02/23/18 documented as of this encounter
--- OUTSIDE RECORDS SUMMARY | 2024-06-26 11:36 | XMS_ITS | Encounter Summary ---
Author Organization [facility] Address [address] [place] [address] Phone Care Team Providers Care Transportation Manager Name Role Phone Ángel Smith MD Primary Care Provider [phone] Ovidio Callahan MD Unavailable [phone] Reason for Visit * Reason Onset Date Comments Medication Refill Medication Management 05/08/2023 [place] and Xanax Refills. Encounter Details Date Type Department Care Team (Late st Contact Info) Description 05/08/2023 Telephone [facility] Medical Group - Family Medicine [facility] #2 [place] [address] Ángel Smith MD #[address] [address] Medication Refill; Medication Management ([place] and Xanax Refills. ) Social History Tobacco Use Types Packs/Day Years [...] encounter Miscellaneous Notes * Telephone Encounter - Stacy lOivares RN - 05/09/2023 4:21 PM CDT Situation: Follow-Up/Medication Refill Issue Background: Patient following up on earlier calls in regards to her prescriptions [place] and Xanax. Patient reports never having issues in the past and doesn't want to be a bother but is wondering whythese got declined. Assessment: Previous messages state that medications were declined, messages sent to provider for review. Recommendation: Will route to provider, please advise on medications. * Telephone Encounter - Sandra Calvillo RN - 05/09/2023 12:41 PM CDT Situation: Patient calling about [place] and Xanax Refills. Background: Patient report she believe her urine was mislabeled as she was told her urine did not have [place] or[place]anax in it. Assessment: Patient report pharmacy is saying the refills have been denied and to call provider. Recommendation: Patient has attempted to call multiple times and is confused as to what is going on. Please advise. * Telephone Encounter - Maite Padilla RN - 05/08/2023 3:36 PM CDT PDMP [place] 04/10/23 - Alprazolam 04/11/23 Medication failed the protocol, provider to review and approve the medication order if appropriate. Requested Prescriptions Pending Prescriptions Disp Refills ALPRAZolam (XANAX) 1 MG Tablet [Pharmacy Med Name: ALPRAZOLAM 1MG TABLET] 60 Tablet 0 Sig: Take 1 Tablet by mouth 2 times daily as needed for Anxiety. Not Delegated - Benzodiazepines Protocol Failed - 05/08/2023 11:56 AM Failed - This refill cannot be delegated Passed - Visit with relevant provider in past 12 months or upcoming 90 days Recent Visits Date Type Provider Dept 04/27/23 Office Visit Ángel Smith MD [facility] 11/22/22 Office Visit Ángel Smith MD [facility] 08/02/22 Office Visit Ángel Smith MD [facility] Showing recent visits within past 365 days and meeting all other requirements Future Appointments Date Type Provider Dept 08/01/23 Appointment Ángel Smith MD [facility] Showing future appointments within next 90 days and meeting all other requirements HYDROcodone-acetaminophen (NORCO) 5-325 MG Tablet [Pharmacy Med Name: HYDROCODONE BITARTRATE/ACETAMINOPHEN 5-325MG TABLET] 40 Tablet 0 Sig: Take 1 Tablet by mouth every 8 hours as needed for Moderate or more severe pain. Not Delegated - Opioid Combinations Protocol Failed - 05/08/2023 11:56 AM Failed - This refill cannot be delegated Passed - Visit with relevant provider in past 12 months or upcoming 90 days Recent Visits Date Type Provider Dept 04/27/23 Office Visit Ángel Smith MD [facility] 11/22/22 Office Visit Ángel Smith MD [facility] 08/02/22 Office Visit Ángel Smith MD [facility] Showing recent visits within past 365 days and meeting all other requirements Future Appointments Date Type Provider Dept 08/01/23 Appointment Ángel Smith MD [facility] Showing future appointments within next 90 days and meeting all other requirements documented in this encounter Plan of Treatment Upcoming Encounters Date Type Department Care Team (Late st Contact Info) Description 07/16/2024 7:15 AM CDT Office Visit [facility] Medical Group - Family Medicine - [place] #[address] [place] [address] Ángel Smith MD #[address] [address] documented as of this encounter Visit Diagnoses Diagnosis Anxiety Anxiety state, unspecified Chronic midline low back pain without sciatica documented in this encounter Additional Health Concerns Assessment Noted Time PHQ-9 Depression Total Score: 0 04/27/19 24 3:12 PM CDT documented as of this encounter Care Teams Transportation Manager Relationship Specialty Start Date End Date Ángel Smith MD #2 [facility] [address] [place] [address] PCP - General Family Medicine 06/07/16 Ovidio Callahan MD [address] [facility] [address] [place] [address] Consulting Physician Obstetrics & Gynecology 02/23/18 documented as of this encounter
--- OUTSIDE RECORDS SUMMARY | 2024-06-26 11:36 | XMS_ITS | Encounter Summary ---
Author Organization [facility] Address [address] [place] [address] Phone Care Team Providers Care Mems Device Scientist Name Role Phone Ángel Smith MD Primary Care Provider Ovidio Callahan MD Unavailable [phone] Reason for Visit * Reason Comments Medication Refill Encounter Details Date Type Department Care Team (Late st Contact Info) Description 06/13/2020 Refill [facility] #2 [place] [address] Ángel Smith MD #[address] [address] Medication Refill Social History Tobacco Use Types [...] Telephone Encounter - Maite Padilla RN - 06/15/2020 9:34 AM CDT [place] 05/26/20 for 20 days supply Medication failed the protocol, provider to review and approve the medication order if appropriate. Requested Prescriptions Pending Prescriptions Disp Refills ALPRAZolam (XANAX) 1 MG Tablet [Pharmacy Med Name: ALPRAZOLAM 1 MG TABS 1 Tablet] 60 Tablet 0 Sig: TAKE 1 TABLET BY MOUTH 3 TIMES DAILY NEEDED FOR ANXIETY. healthfinch Not Delegated - Psychiatry: Anxiolytics/Hypnotics Failed - 06/15/2020 9:34 AM Failed - This refill cannot be delegated Passed - Valid encounter within last 6 months Past Office Visits Recent Outpatient Visits 1 month ago Physical exam, annual (Adult) [facility] Ángel Diop MD 3 months ago Chronic midline low back pain without sciatica [facility] Ángel Diop MD 8 months ago Anxiety [facility] Ángel Diop MD 1 year ago Anxiety [facility] Ángel Diop MD 1 year ago Anxiety [facility] Ángel Diop MD Upcoming Appointments MATERIALS ENGINEER - Recent and Past Visits Recent Visits Date Type Provider Dept 05/12/20 Office Visit Ángel Smith MD [facility] 02/18/20 Telemedicine Ángel Smith MD [facility] 10/14/19 Office Visit Ángel Smith MD [facility] 05/21/19 Telemedicine Ángel Smith MD [facility] Showing recent visits within past 460 days [...] Description 07/16/2024 7:15 AM CDT Office Visit [facility] [place] [address] Ángel Smith MD [address] [facility] [address] [place] [address] documented as of this encounter Visit Diagnoses Not on filedocumented in this encounter Additional Health Concerns Assessment Noted Time PHQ-9 Depression Total Score: 0 05/13/19 21 6:06 PM CDT documented as of this encounter Care Teams Mems Device Scientist Relationship Specialty Start Date End Date Ángel Smith MD #2 [address] [facility] [place] [address] PCP - General Family Medicine 06/07/16 Ovidio Callahan MD 4 [facility] [address] [place] [address] Consulting Physician Obstetrics & Gynecology 02/23/18 documented as of this encounter
--- OUTSIDE RECORDS SUMMARY | 2024-06-26 11:36 | XMS_ITS | Encounter Summary ---
Author Organization [facility] Address [address] [place] [address] Phone Care Team Providers Care Manager Fraud Name Role Phone Ángel Smith MD Primary Care Provider Ovidio Callahan MD Unavailable [phone] Reason for Visit * Reason Comments Medication Refill Encounter Details Date Type Department Care Team (Late st Contact Info) Description 11/17/2022 Refill [facility] - [place] #2 [place] [address] Eboni Bonilla APRN, FABRIC STRETCHER #[address] [address] Medication Refill Social History Tobacco Use Types [...] Telephone Encounter - Maite Padilla RN - 11/17/2022 5:03 PM CDT PDMP 10/21/22 - 10 days Medication failed the protocol, provider to review and approve the medication order if appropriate. Requested Prescriptions Pending Prescriptions Disp Refills HYDROcodone-acetaminophen (NORCO) 5-325 MG Tablet [Pharmacy Med Name: HYDROCODONE BITARTRATE/ACETAMINOPHEN 5-325MG TABLET] 60 Tablet 0 Sig: TAKE ONE (1) TO TWO (2) TABLETS BY MOUTH EVERY 8 HOURS NEEDED FOR MODERATE OR MORE SEVERE PAIN. Not Delegated - Opioid Combinations Protocol Failed - 11/17/2022 3:27 PM Failed - This refill cannot be delegated Passed - Visit with relevant provider in past 12 months or upcoming 90 days Recent Visits Date Type Provider Dept 08/02/22 Office Visit Ángel Smith MD [facility] Seth 04/13/22 Office Visit Ángel Smith MD [facility] 01/12/22 Office Visit Ángel Smith MD [facility] Seth Showing recent visits within past 365 days and meeting all other requirements Future Appointments Date Type Provider Dept 11/22/22 Appointment Ángel Smith MD [facility] Showing future appointments within next 90 days and meeting all other requirements documented in this encounter Plan of Treatment Upcoming Encounters Date Type Department Care Team (Late st Contact Info) Description 07/16/2024 7:15 AM CDT Office Visit [facility] - Family Medicine - [place] [address] [place] [address] Ángel Smith MD [address] [address] documented as of this encounter Visit Diagnoses Diagnosis Chronic midline low back pain without sciatica documented in this encounter Additional Health Concerns Assessment Noted Time PHQ-9 Depression Total Score: 0 12/31/19 21 11:20 AM SCHOOL COOK documented as of this encounter Care Teams Manager Fraud Relationship Specialty Start Date End Date Ángel Smith MD #2 [facility] [address] [place] [address] PCP - General Family Medicine 06/07/16 Ovidio Callahan MD [address] [facility] [address] [place] [address] Consulting Physician Obstetrics & Gynecology 02/23/18 documented as of this encounter
--- OUTSIDE RECORDS SUMMARY | 2024-06-26 11:36 | XMS_ITS | Encounter Summary ---
Author Organization [facility] Address [address] [place] [address] Phone Care Team Providers Care Board Mixer Tender Name Role Phone Ángel Smith MD Primary Care Provider Ovidio Callahan MD Unavailable [phone] Reason for Visit * Reason Comments Medication Refill Encounter Details Date Type Department Care Team (Late st Contact Info) Description 11/30/2022 Refill [facility] #2 [place] [address] Ángel Smith MD #[address] [address] Medication Refill Social History Tobacco Use Types [...] Telephone Encounter - Maite Padilla RN - 12/01/2022 8:55 AM CDT PDMP 11/18/22 - 10 days Medication failed the protocol, [...] Delegated - Opioid Combinations Protocol Failed - 11/30/2022 6:26 PM Failed - This refill cannot be delegated Passed - Visit with relevant provider in past 12 months or upcoming 90 days Recent Visits Date Type Provider Dept 11/22/22 Office Visit Ángel Smith MD [facility] 08/02/22 Office Visit Ángel Smith MD [facility] 04/13/22 Office Visit Ángel Smith MD [facility] 01/12/22 Office Visit Ángel Smith MD [facility] Seth Showing recent visits within past 365 days and meeting all other requirements Future Appointments Date Type Provider Dept 02/23/23 Appointment Ángel Smith MD [facility] Seth Showing future appointments within next 90 days and meeting all other requirements documented in this encounter Plan of Treatment Upcoming Encounters Date Type Department Care Team (Late st Contact Info) Description 07/16/2024 7:15 AM CDT Office Visit [facility] - Family Medicine - [place] [address] [place] [address] Ángel Smith MD [address] [address] documented as of this encounter Visit Diagnoses Diagnosis Chronic midline low back pain without sciatica documented in this encounter Additional Health Concerns Assessment Noted Time PHQ-9 Depression Total Score: 0 12/31/19 21 11:20 AM ELECTRIC TRUCK OPERATOR documented as of this encounter Care Teams Board Mixer Tender Relationship Specialty Start Date End Date Ángel Smith MD #2 [facility] [address] [place] [address] PCP - General Family Medicine 06/07/16 Ovidio Callahan MD [address] [facility] [address] [place] [address] Consulting Physician Obstetrics & Gynecology 02/23/18 documented as of this encounter
--- OUTSIDE RECORDS SUMMARY | 2024-06-26 11:36 | XMS_ITS | Encounter Summary ---
Author Organization [facility] Address [address] [place] [address] Phone Care Team Providers Care Hide Puller Name Role Phone Ángel Smith MD Primary Care Provider [phone] Ovidio Callahan MD Unavailable [phone] Reason for Visit * Reason Comments Medication Refill Encounter Details Date Type Department Care Team (Late st Contact Info) Description 12/31/2019 Refill [facility] #2 [place] [address] Ángel Smith MD #[address] [address] Medication Refill Social History Tobacco Use Types [...] Telephone Encounter - Maite Padilla RN - 12/31/2019 1:37 PM CST Last OV 10/14/19 - no fol up - last Rx 12/12/19 Medication failed the protocol, provider to review and approve the medication order if appropriate. Requested Prescriptions Pending Prescriptions Disp Refills ALPRAZolam (XANAX) 1 MG Tablet [Pharmacy Med Name: ALPRAZOLAM 1 MG TABS 1 Tablet] 60 Tab 0 Sig: TAKE 1 TAB BY MOUTH 3 TIMES DAILY NEEDED FOR ANXIETY. Not Delegated - Psychiatry: Anxiolytics/Hypnotics Failed - 12/31/2019 8:43 AM Failed - This refill cannot be delegated Passed - Valid encounter within last 6 months Past Office Visits Recent Outpatient Visits 2 months ago Anxiety [facility] - Ángel Diop MD 7 months ago Anxiety [facility] Ángel Diop MD 1 year ago Anxiety [facility] Ángel Diop MD 1 year ago [facility]cess [facility] Joh[facility] APN, SUBMARINE OPERATOR 1 year ago Chronic midline low back pain without sciatica [facility] Ángel Diop MD Upcoming Appointments ASSOCIATE SCIENTIST - Recent and Past Visits Recent Visits Date Type Provider Dept 10/14/19 [facility] Tele[facility]icine Ángel Smith MD [facility] Seth 12/25/18 Office Visit Ángel Smith MD [facility] Showing recent visits within past 460 days with a meds authorizing provider and meeting all other requirements Future Appointments No visits were found meeting these conditions. Showing future appointments within next 90 days with a meds authorizing provider and meeting all other requirements F EDITOR documented in this encounter Plan of Treatment Upcoming Encounters Date Type Department Care Team (Late st Contact Info) Description 07/16/2024 7:15 AM CDT Office Visit [facility] #2 [place] [address] Ángel Smith MD #[address] [address] documented as of this encounter Visit Diagnoses Not on filedocumented in this encounter Additional Health Concerns Assessment Noted Time PHQ-9 Depression Total Score: 0 06/01/19 19 2:00 PM CDT documented as of this encounter Care Teams Hide Puller Relationship Specialty Start Date End Date Ángel Smith MD #2 [facility] [address] [place] [address] PCP - General Family Medicine 06/07/16 Ovidio Callahan MD [address] [facility] [address] [place] [address] Consulting Physician Obstetrics & Gynecology 02/23/18 documented as of this encounter
--- OUTSIDE RECORDS SUMMARY | 2024-06-26 11:36 | XMS_ITS | Encounter Summary ---
Author Organization [facility] Address [address] [place] [address] Phone Care Team Providers Care Lip Cutter Name Role Phone Ángel Smith MD Primary Care Provider [phone] Ovidio Callahan MD Unavailable [phone] Reason for Visit * Reason Comments Medication Refill Encounter Details Date Type Department Care Team (Late st Contact Info) Description 04/09/2020 Refill [facility] #2 [place] [address] Ángel Smith MD #[address] [address] Medication Refill Social History Tobacco Use Types [...] Telephone Encounter - Ángel Smith MD - 04/09/2020 11:30 AM CST Prescription approved. Please call in O BOARD OPERATOR ANNOUNCER * Telephone Encounter - Maite Padilla RN - 04/09/2020 11:07 AM CST Medication failed the protocol, provider to review and approve the medication order if appropriate. Requested Prescriptions Pending Prescriptions Disp Refills DULoxetine (CYMBALTA) [address] Apolinar [Pharmacy Med Name: DULOXETINE HCL 30 MG CAP 30 Capsule] 30 Capsule 5 Sig: TAKE ONE CAPSULE BY MOUTH EVERY DAY Not Delegated - Psychiatry: Antidepressants: Other Failed - 04/09/2020 8:42 AM Failed - This refill cannot be delegated Passed - Valid encounter within last 12 months Past Office Visits Recent Outpatient Visits 1 month ago Chronic midline low back pain without sciatica [facility] Ángel Diop MD 5 months ago Anxiety [facility] Ángel Diop MD 10 months ago Anxiety [facility] Ángel Diop MD 1 year ago Anxiety [facility] Ángel Diop MD 1 year ago [facility] APN, ROLLER TURNER Upcoming Appointments Future Appointments In 1 week Ángel Smith MD [facility] - Recent and Past Visits Recent Visits Date Type Provider Dept 02/18/20 Telemedicine Ángel Smith MD [facility] 10/14/19 Office Visit Ángel Smith MD [facility] 05/21/19 Telemedicine Ángel Smith MD [facility] Showing recent visits within past 460 days with a meds authorizing provider and meeting all other requirements Future Appointments Date Type Provider Dept 04/20/20 Appointment Ángel Smith MD [facility] Showing future appointments within next 90 days with a meds authorizing provider and meeting all other requirements Passed - Last BP in normal range BP Readings from Last 1 Encounters: 10/14/19 118/76 O BOARD OPERATOR ANNOUNCER documented in this encounter Plan of Treatment Upcoming Encounters Date Type Department Care Team (Late st Contact Info) Description 07/16/2024 7:15 AM CDT Office [facility] - [place] #[address] [place] [address] Ángel Smith MD #[address] [address] documented as of this encounter Visit Diagnoses Not on filedocumented in this encounter Additional Health Concerns Assessment Noted Time PHQ-9 Depression Total Score: 0 06/01/19 19 2:00 PM CDT documented as of this encounter Care Teams Lip Cutter Relationship Specialty Start Date End Date Ángel Smith MD #[address] [address] PCP - General Family Medicine 06/07/16 Ovidio Callahan MD [address] [place] [address] [address] [place] [address] Consulting Physician Obstetrics & Gynecology 02/23/18 documented as of this encounter
--- OUTSIDE RECORDS SUMMARY | 2024-06-26 11:36 | XMS_ITS | Encounter Summary ---
Author Organization [facility] Address [address] [place] [address] Phone Care Team Providers Care Labor Delivery Specialist Name Role Phone Ángel Smith MD Primary Care Provider [phone] Ovidio Callahan MD Unavailable [phone] Reason for Visit * Reason Comments Medication Refill Encounter Details Date Type Department Care Team (Late st Contact Info) Description 12/05/2022 Refill [facility] #2 [place] [address] Ángel Smith MD #[address] [address] Medication Refill Social History Tobacco Use Types [...] Telephone Encounter - Maite Padilla RN - 12/06/2022 11:09 AM CDT PDMP 11/18/22 - 12-02 days supply Medication failed the protocol, provider [...] Delegated - Opioid Combinations Protocol Failed - 12/05/2022 5:29 PM Failed - This refill cannot be delegated Passed - Visit with relevant provider in past 12 months or upcoming 90 days Recent Visits Date Type Provider Dept 11/22/22 Office Visit Ángel Smith MD [facility] 08/02/22 Office Visit Ángel Smith MD [facility] 04/13/22 Office Visit Ángel Smith MD [facility] 01/12/22 Office Visit [facility] Showing recent visits within past 365 days and meeting all other requirements Future Appointments Date Type Provider Dept 02/23/23 Appointment Ángel Smith MD [facility] Showing future appointments within next 90 days and meeting all other requirements documented in this encounter Plan of Treatment Upcoming Encounters Date Type Department Care Team (Late st Contact Info) Description 07/16/2024 7:15 AM CDT Office Visit [facility] - Family Medicine - [place] #[address] [place] [address] Ángel Smith MD [address] [address] documented as of this encounter Visit Diagnoses Diagnosis Chronic midline low back pain without sciatica documented in this encounter Additional Health Concerns Assessment Noted Time PHQ-9 Depression Total Score: 0 12/31/19 21 11:20 AM WORKFORCE MANAGEMENT ANALYST documented as of this encounter Care Teams Labor Delivery Specialist Relationship Specialty Start Date End Date Ángel Smith MD #2 [facility] [address] [place] [address] PCP - General Family Medicine 06/07/16 Ovidio Callahan MD [address] [facility] [address] [place] [address] Consulting Physician Obstetrics & Gynecology 02/23/18 documented as of this encounter
--- OUTSIDE RECORDS SUMMARY | 2024-06-26 11:36 | XMS_ITS | Encounter Summary ---
Author Organization [facility] Address [address] [place] [address] Phone Care Team Providers Care Facilities Operations Technician Name Role Phone Ángel Smith MD Primary Care Provider Ovidio Callahan MD Unavailable [phone] Reason for Visit * Reason Comments Medication Refill Encounter Details Date Type Department Care Team (Late st Contact Info) Description 07/20/2022 Refill [facility] #2 [place] [address] Ángel Smith MD #[address] [address] Medication Refill Social History Tobacco Use Types Packs/Day Years Used Date Smoking Tobacco: Light Smoker Cigarettes 0.3 15 Smokeless Tobacco: Never Comments:Smoked for 15 years on and off;about 3 a day Alcohol Use Standard Drinks/Week Comments Not Currently 0 (1 standard drink = 0.6 oz pur e alcohol) wine here and there PHQ-2 Answer Date Recorded Total Score - Questions 1-9 0 06/14 Sexually Active Control Partners Comments Yes Male Comments No Sex and Gender Information Value Date Recorded Sex Assigned at Not on file Legal Sex Female 10:02 PM CDT Gender Identity Not on file Sexual Orientation Not on file documented as of this encounter Miscellaneous Notes * Telephone Encounter - Sravani Archibald RN - 07/20/2022 12:52 PM CDT PDMP 06/24/22 10 day supply Medication failed the protocol, provider to [...] Delegated - Opioid Combinations Protocol Failed - 07/20/2022 11:57 AM Failed - This refill cannot be delegated Passed - Visit with relevant provider in past 12 months or upcoming 90 days Recent Visits Date Type Provider Dept 04/13/22 Office Visit Ángel Smith MD [facility] 01/12/22 Office Visit Ángel Smith MD [facility] 10/13/21 Office Visit [facility] Showing recent visits within past 365 days and meeting all other requirements Future Appointments Date Type Provider Dept 08/02/22 Appointment Ángel Smith MD [facility] Showing future appointments within next 90 days and meeting all other requirements documented in this encounter Plan of Treatment Upcoming Encounters Date Type Department Care Team (Late st Contact Info) Description 07/16/2024 7:15 AM CDT Office Visit [facility] - Family Medicine [facility] #2 [place] [address] Ángel Smith MD #[address] [address] documented as of this encounter Visit Diagnoses Diagnosis Chronic midline low back pain without sciatica documented in this encounter Additional Health Concerns Assessment Noted Time PHQ-9 Depression Total Score: 0 12/31/19 21 11:20 AM COSMETIC MANAGER documented as of this encounter Care Teams Facilities Operations Technician Relationship Specialty Start Date End Date Ángel Smith MD #[address] [address] PCP - General Family Medicine 06/07/16 Ovidio Callahan MD [address] [facility] [place] [address] Consulting Physician Obstetrics & Gynecology 02/23/18 documented as of this encounter
--- OUTSIDE RECORDS SUMMARY | 2024-06-26 11:36 | XMS_ITS | Encounter Summary ---
Author Organization [facility] Address [address] [place] [address] Phone Care Team Providers Care Spa Director Name Role Phone Ángel Smith MD Primary Care Provider Ovidio Callahan MD Unavailable [phone] Reason for Visit * Reason Comments Medication Refill Encounter Details Date Type Department Care Team (Late st Contact Info) Description 10/20/2022 Refill [facility] #2 [place] [address] Ángel Smith MD #[address] [address] Medication Refill Social History Tobacco Use Types [...] encounter Miscellaneous Notes * Telephone Encounter - Eboni Bonilla APRN, CNP - 10/21/2022 1:03 PM CDT [place] EDGER[place] reviewed, UDS compliant approved * Telephone Encounter - Maite Padilla RN - 10/21/2022 9:11 AM CDT PDMP 09/20/22 - 10 days Medication failed the protocol, [...] Delegated - Opioid Combinations Protocol Failed - 10/20/2022 12:32 PM Failed - This refill cannot be delegated Passed - Visit with relevant provider in past 12 months or upcoming 90 days Recent Visits Date Type Provider Dept 08/02/22 Office Visit Á[facility]el [facility] MD [facility] 04/13/22 Office Visit Ángel Smith MD [facility] 01/12/22 Office Visit Ángel Smith MD [facility] Showing recent visits within past 365 days and meeting all other requirements Future Appointments Date Type Provider Dept 11/02/22 Appointment Ángel Smith MD [facility] Showing future appointments within next 90 days and meeting all other requirements documented in this encounter Plan of Treatment Upcoming Encounters Date Type Department Care Team (Late st Contact Info) Description 07/16/2024 7:15 AM CDT Office Visit [facility] - Family Medicine - [place] #[address] [place] [address] Ángel Smith MD #[address] [address] documented as of this encounter Visit Diagnoses Diagnosis Chronic midline low back pain without sciatica documented in this encounter Additional Health Concerns Assessment Noted Time PHQ-9 Depression Total Score: 0 12/31/19 21 11:20 AM ENGINE WATCHMAN documented as of this encounter Care Teams Spa Director Relationship Specialty Start Date End Date Ángel Smith MD #[address] [address] PCP - General Family Medicine 06/07/16 Ovidio Callahan MD [address] [facility] [address] [place] [address] Consulting Physician Obstetrics & Gynecology 02/23/18 documented as of this encounter
--- OUTSIDE RECORDS SUMMARY | 2024-06-26 11:36 | XMS_ITS | Encounter Summary ---
Author Organization [facility] Address [address] [place] [address] Phone Care Team Providers Care Portable Machine Cutter Name Role Phone Ángel Smith MD Primary Care Provider Ovidio Callahan MD Unavailable [phone] Reason for Visit * Reason Comments Medication Refill Encounter Details Date Type Department Care Team (Late st Contact Info) Description 10/29/2020 Refill [facility] - [place] #2 [place] [id number] Jorge Abdalla APRN, IP COUNSEL #[address] [address] Medication Refill Social History Tobacco Use Types [...] Encounter - Ángel Smith MD - 10/30/2020 11:48 AM CDT Prescription pending signature * Telephone Encounter - Maite Padilla RN - 10/30/2020 9:44 AM CDT [place] PDMP 10/02/20 Medication failed the protocol, provider to review and approve the medication order if appropriate. Requested Prescriptions Pending Prescriptions Disp Refills HYDROcodone-acetaminophen (NORCO) 5-325 MG Tablet [Pharmacy Med Name: HYDROCODON-APAP 5-325MG TAB 5-325 Tablet] 60 Tablet 0 Sig: TAKE 1 TABLET BY MOUTH EVERY 4 HOURS NEEDED (PAIN). [email or web address] Not Delegated - Analgesics: Opioid Agonist Combinations Failed - 10/30/2020 9:43 AM Failed - This refill cannot be delegated Passed - Valid encounter within last 6 months Past Office Visits Recent Outpatient Visits 1 month ago Anxiety [facility] - Jorge Wright APN, IP COUNSEL 5 months ago Physical exam, annual (Adult) [facility] - Ángel Diop MD 8 months ago Chronic midline low back pain without sciatica [facility] Ángel Diop MD 1 year ago Anxiety [facility] Ángel Diop MD 1 year ago Anxiety [facility] Ángel Diop MD Upcoming Appointments Future Appointments In 2 months Ángel Smith MD [facility] - Recent and Past Visits Recent Visits Date Type Provider Dept 09/29/20 Office Visit Jorge Abdalla APN, IP COUNSEL [facility] 05/12/20 Office Visit Ángel Smith MD [facility] 02/18/20 Telemedicine Ángel Smith MD [facility] 10/14/19 Office Visit Ángel Smith MD [facility] Showing recent visits within past 460 days with a meds authorizing provider and meeting all other requirements Future Appointments Date Type Provider Dept 12/30/20 Appointment Smith, Ángel S, MD [facility] Showing future appointments within next 90 days with a meds authorizing provider and meeting all other requirements documented in this encounter Plan of Treatment Upcoming Encounters Date Type Department Care Team (Late st Contact Info) Description 07/16/2024 7:15 AM CDT [facility] - [place] #2 [place] [address] Ángel Smith MD #[address] [address] documented as of this encounter Visit Diagnoses Diagnosis Chronic midline low back pain without sciatica documented in this encounter Additional Health Concerns Assessment Noted Time PHQ-9 Depression Total Score: 0 05/13/19 21 6:06 PM CDT documented as of this encounter Care Teams Portable Machine Cutter Relationship Specialty Start Date End Date Ángel Smith MD #[address] [address] PCP - General Family Medicine 06/07/16 Ovidio Callahan MD 4 [facility] [address] [place] [address] Consulting Physician Obstetrics & Gynecology 02/23/18 documented as of this encounter
--- OUTSIDE RECORDS SUMMARY | 2024-06-26 11:36 | XMS_ITS | Encounter Summary ---
Author Organization [facility] Address [address] [place] [address] Phone Care Team Providers Care Psychiatry Resident Name Role Phone Ángel Smith MD Primary Care Provider [phone] Ovidio Callahan MD Unavailable [phone] Reason for Visit * Reason Comments Medication Refill Encounter Details Date Type Department Care Team (Late st Contact Info) Description 04/08/2023 Refill [facility] #2 [place] [address] Ángel Smith MD #[address] [address] Medication Refill Social History Tobacco Use Types [...] Telephone Encounter - Maite Padilla RN - 04/10/2023 9:22 AM CST PDMP 03/11/23 Medication failed the protocol, provider to review and approve the medication order if appropriate. Requested Prescriptions Pending Prescriptions Disp Refills HYDROcodone-acetaminophen (NORCO) 5-325 MG Tablet [Pharmacy Med Name: HYDROCODONE BITARTRATE/ACETAMINOPHEN 5-325MG TABLET] 50 Tablet 0 Sig: TAKE 1 TABLET BY MOUTH EVERY 8 HOURS NEEDED FOR MILD OR MORE SEVERE PAIN. Not Delegated - Opioid Combinations Protocol Failed - 04/08/2023 8:38 AM Failed - This refill cannot be delegated Passed - Visit with relevant provider in past 12 months or upcoming 90 days Recent Visits Date Type Provider Dept 11/22/22 Office Visit Ángel Smith MD [facility] 08/02/22 Office Visit Ángel Smith MD [facility] 04/13/22 Office Visit Ángel Smith MD [facility] Showing recent visits within past 365 days and meeting all other requirements Future Appointments Date Type Provider Dept 04/11/23 Appointment Ángel Smith MD [facility] Showing future appointments within next 90 days and meeting all other requirements NSED MASSAGE THERAPIST documented in this encounter Plan of Treatment Upcoming Encounters Date Type Department Care Team (Late st Contact Info) Description 07/16/2024 7:15 AM CDT Office Visit [facility] - Family Medicine - [place] #[address] [place] [address] Ángel Smith MD #[address] [address] documented as of this encounter Visit Diagnoses Diagnosis Chronic midline low back pain without sciatica documented in this encounter Additional Health Concerns Assessment Noted Time PHQ-9 Depression Total Score: 0 12/31/19 21 11:20 AM LICENSED MASSAGE THERAPIST documented as of this encounter Care Teams Psychiatry Resident Relationship Specialty Start Date End Date Ángel Smith MD #2 [address] [facility] [address] [place] [address] PCP - General Family Medicine 06/07/16 Ovidio Callahan MD [address] [facility] [address] [place] [address] Consulting Physician Obstetrics & Gynecology 02/23/18 documented as of this encounter
--- OUTSIDE RECORDS SUMMARY | 2024-06-26 11:36 | XMS_ITS | Encounter Summary ---
Author Organization [facility] Address [address] [place] [address] Phone Care Team Providers Care Material Handling Technician Name Role Phone Ángel Smith MD Primary Care Provider [phone] Ovidio Callahan MD Unavailable [phone] Reason for Visit * Reason Comments Medication Refill Encounter Details Date Type Department Care Team (Late st Contact Info) Description 03/10/2023 Refill [facility] #2 [place] [address] Ángel Smith MD #[address] [address] Medication Refill Social History Tobacco Use Types [...] Telephone Encounter - Maite Padilla RN - 03/10/2023 1:03 PM CST PDMP 02/10/23 - 30 days - pharmacy closed on due /Monday Medication failed the protocol, provider to review and approve the medication order if appropriate. Requested Prescriptions Pending Prescriptions Disp Refills HYDROcodone-acetaminophen (NORCO) 5-325 MG Tablet [Pharmacy Med Name: HYDROCODONE BITARTRATE/ACETAMINOPHEN 5-325MG TABLET] 50 Tablet 0 Sig: TAKE 1 TABLET BY MOUTH EVERY 8 HOURS NEEDED FOR MILD OR MORE SEVERE PAIN. 02.10 Not Delegated - Opioid Combinations Protocol Failed - 03/10/2023 8:36 AM Failed - This refill cannot be delegated Passed - Visit with relevant provider in past 12 months or upcoming 90 days Recent Visits Date Type Provider Dept 11/22/22 Office Visit Á[facility] MD [facility] [place] 08/02/22 Office Visit Ángel Smith MD [facility] 04/13/22 Office Visit Ángel Smith MD [facility] Seth Showing recent visits within past 365 days and meeting all other requirements Future Appointments Date Type Provider Dept 03/15/23 Appointment Ángel Smith MD [facility] [place] Showing future appointments within next 90 days and meeting all other requirements GN SPECIALIST documented in this encounter Plan of Treatment Upcoming Encounters Date Type Department Care Team (Late st Contact Info) Description 07/16/2024 7:15 AM CDT Office Visit [facility] - Family Medicine - [place] [address] [place] [address] Ángel Smith MD [address] [address] documented as of this encounter Visit Diagnoses Diagnosis Chronic midline low back pain without sciatica documented in this encounter Additional Health Concerns Assessment Noted Time PHQ-9 Depression Total Score: 0 12/31/19 21 11:20 AM DESIGN SPECIALIST documented as of this encounter Care Teams Material Handling Technician Relationship Specialty Start Date End Date Ángel Smith MD #2 [facility] CARMELLA [facility] [address] [place] [address] PCP - General Family Medicine 06/07/16 Ovidio Callahan MD [address] [facility] [address] [place] [address] Consulting Physician Obstetrics & Gynecology 02/23/18 documented as of this encounter
--- OUTSIDE RECORDS SUMMARY | 2024-06-26 11:36 | XMS_ITS | Encounter Summary ---
Author Organization [facility] Address [address] [place] [address] Phone Care Team Providers Care Billet Examiner Name Role Phone Ángel Smith MD Primary Care Provider Ovidio Callahan MD Unavailable [phone] Reason for Visit * Reason Comments Medication Refill Encounter Details Date Type Department Care Team (Late st Contact Info) Description 06/02/2020 Refill [facility] #2 [place] [address] Ángel Smith MD #[address] [address] Medication Refill Social History Tobacco Use Types [...] have Coronavirus / COVID-19? No / Unsure 05/12/2020 5:51 PM CDT documented as of this encounter Miscellaneous Notes * Telephone Encounter - Ángel Smith MD - 06/03/2020 11:54 AM CDT Prescription pending signature * Telephone Encounter - Maite Padilla RN - 06/03/2020 11:52 AM CDT [place] PDMP 05/06/20 Medication failed the protocol, provider to review and approve the medication order if appropriate. Requested Prescriptions Pending Prescriptions Disp Refills HYDROcodone-acetaminophen (NORCO) 5-325 MG Tablet [Pharmacy Med Name: HYDROCODON-APAP 5-325MG TAB 5-325 Tablet] 75 Tablet 0 Sig: TAKE 1 TABLET BY MOUTH EVERY 4 HOURS NEEDED FOR PAIN healthfinch Not Delegated - Analgesics: Opioid Agonist Combinations Failed - 06/03/2020 11:51 AM Failed - This refill cannot be delegated Passed - Valid encounter within last 6 months Past Office Visits Recent Outpatient Visits 3 weeks ago Physical exam, annual (Adult) [facility] - Ángel Diop MD 3 months ago Chronic midline low back pain without sciatica [facility] - Ángel Diop MD 7 months ago Anxiety [facility] - Ángel Diop MD 1 year ago Anxiety [facility] - Ángel Diop MD 1 year ago Anxiety [facility] - Ángel Diop MD Upcoming Appointments KOSHER BUTCHER - Recent and Past Visits Recent Visits Date Type Provider Dept 05/12/20 Office Visit Ángel Smith MD [facility] 02/18/20 Telemedicine Ángel Smith MD [facility] 10/14/19 Office Visit Ángel Smith MD [facility] 05/21/19 Telemedicine Ángel Smith MD [facility] Showing recent visits within past 460 days [...] Description 07/16/2024 7:15 AM CDT Office Visit [facility] - Family Medicine [facility] #2 [place] [address] Ángel Smith MD #[address] [address] documented as of this encounter Visit Diagnoses Not on filedocumented in this encounter Additional Health Concerns Assessment Noted Time PHQ-9 Depression Total Score: 0 05/13/19 21 6:06 PM CDT documented as of this encounter Care Teams Billet Examiner Relationship Specialty Start Date End Date Ángel Smith MD #[address] [address] PCP - General Family Medicine 06/07/16 Ovidio Callahan MD 4 [facility] [address] [place] [address] Consulting Physician Obstetrics & Gynecology 02/23/18 documented as of this encounter
--- OUTSIDE RECORDS SUMMARY | 2024-06-26 11:36 | XMS_ITS | Encounter Summary ---
Author Organization [facility] Address [address] [place] [address] Phone Care Team Providers Care Buncher Hand Name Role Phone Ángle Smith MD Primary Care Provider Ovidio Callahan MD Unavailable [phone] Reason for Visit * Reason Comments Medication Refill Encounter Details Date Type Department Care Team (Late st Contact Info) Description 03/10/2023 Refill [facility] #2 [place] [address] Ángel Smith MD #[address] [address] Medication Refill Social History Tobacco Use Types [...] Encounter - Maite Padilla RN - 03/10/2023 4:10 PM CST PDMP 02/10/23 - pharmacy closed due date/Monday Medication failed the protocol, provider to review and approve the medication order if appropriate. Requested Prescriptions Pending Prescriptions Disp Refills ALPRAZolam (XANAX) 1 MG Tablet [Pharmacy Med Name: ALPRAZOLAM 1MG TABLET] 60 Tablet 0 Sig: Take 1 Tablet by mouth 2 times daily as needed for Anxiety. Not Delegated - Benzodiazepines Protocol Failed - 03/10/2023 1:42 PM Failed - This refill cannot be delegated Passed - Visit with relevant provider in past 12 months or upcoming 90 days Recent Visits Date Type Provider Dept 11/22/22 Office Visit Ángel Smith MD [facility] 08/02/22 Office Visit Ángel Smith MD [facility] 04/13/22 Office Visit [facility] Showing recent visits within past 365 days and meeting all other requirements Future Appointments Date Type Provider Dept 03/15/23 Appointment Ángel Smith MD [facility] Showing future appointments within next 90 days and meeting all other requirements RINE MAKER documented in this encounter Plan of Treatment Upcoming Encounters Date Type Department Care Team (Late st Contact Info) Description 07/16/2024 7:15 AM CDT Office Visit [facility] - Family Medicine - [place] [address] [place] [address] Ángel Smith MD [address] [address] [address] documented as of this encounter Visit Diagnoses Diagnosis Anxiety Anxiety state, unspecified documented in this encounter Additional Health Concerns Assessment Noted Time PHQ-9 Depression Total Score: 0 12/31/19 21 11:20 AM FIGURINE MAKER documented as of this encounter Care Teams Buncher Hand Relationship Specialty Start Date End Date Ángel Smith MD [address] [place] [address] PCP - General Family Medicine 06/07/16 Ovidio Callahan MD [address] [facility] [address] [place] [address] Consulting Physician Obstetrics & Gynecology 02/23/18 documented as of this encounter
--- OUTSIDE RECORDS SUMMARY | 2024-06-26 11:36 | XMS_ITS | Encounter Summary ---
Author Organization [facility] Address [address] [place] [address] Phone Care Team Providers Care Esters And Emulsifiers Supervisor Name Role Phone Ángel Smith MD Primary Care Provider Ovidio Callahan MD Unavailable [phone] Reason for Visit * Reason Onset Date Comments Medication Refill 11/30/2020 Encounter Details Date Type Department Care Team (Late st Contact Info) Description 11/30/2020 Refill [facility] #2 [place] [address] Ángel Smith MD #[address] [address] Medication Refill Social History Tobacco Use Types [...] Telephone Encounter - Maite Padilla RN - 12/01/2020 11:14 AM CDT HYDROcodone-acetaminophen (NORCO) 5-325 MG Tablet The original prescription was reordered on 12/01/2020 by Ángel Smith MD. * Telephone Encounter - Brittanie Irizarry MA - 11/30/2020 1:40 PM CDT Patient checking status of her Hydrocodone/acetaminophen 5-325 mg tabs . She is requesting a returncall @[phone] See 11/25/20 request and fax request 11/30/20 * Telephone Encounter - Georgia Pereira - 11/30/2020 10:40 AM CDT Received a faxed Rx request from pharmacy. Reordered refill medication(s) requested and pended for nurse and physician/MARCELA review. Refill encounter routed to nurse [email or web address] pool for processing. documented in this encounter Plan of Treatment Upcoming Encounters Date Type Department Care Team (Late st Contact Info) Description 07/16/2024 7:15 AM CDT Office Visit [facility] - Family Medicine [facility] #2 [place] [address] Ángel Smith MD #[address] [address] documented as of this encounter Visit Diagnoses Diagnosis Chronic midline low back pain without sciatica documented in this encounter Additional Health Concerns Assessment Noted Time PHQ-9 Depression Total Score: 0 05/13/19 21 6:06 PM CDT documented as of this encounter Care Teams Esters And Emulsifiers Supervisor Relationship Specialty Start Date End Date Ángel Smith MD #[address] [address] PCP - General Family Medicine 06/07/16 Ovidio Callahan MD [address] [facility] [address] [place] [address] Consulting Physician Obstetrics & Gynecology 02/23/18 documented as of this encounter
--- OUTSIDE RECORDS SUMMARY | 2024-06-26 11:36 | XMS_ITS | Encounter Summary ---
Author Organization [facility] Address [address] [place] [address] Phone Care Team Providers Care Child Health Associate Name Role Phone Ángel Smith MD Primary Care Provider [phone] Ovidio Callahan MD Unavailable [phone] Reason for Visit * Reason Comments Medication Refill Encounter Details Date Type Department Care Team (Late st Contact Info) Description 12/26/2022 Refill [facility] #2 [place] [address] Ángel Smith MD #[address] [address] Medication Refill Social History Tobacco Use Types [...] Telephone Encounter - Maite Padilla RN - 12/26/2022 1:59 PM CST Medication failed the protocol, provider to review and approve the medication order if appropriate. Requested Prescriptions Pending Prescriptions Disp Refills ergocalciferol (VITAMIN D) 36077 UNIT Capsule [Pharmacy Med Name: VITAMIN D 76638LLH CAPSULE] 3 Capsule 2 Sig: TAKE ONE (1) CAP BY MOUTH EVERY 30 DAYS. Vitamin Supplements (Adult) Protocol Failed - 12/26/2022 9:42 AM Failed - Vitamin D dose not greater than 1.25mg Passed - Visit with relevant provider in past 12 months or upcoming 90 days Recent Visits Date Type Provider Dept 11/22/22 Office Visit Ángel Smith MD [facility] 08/02/22 Office Visit Ángel Smith MD [facility] 04/13/22 Office Visit Ángel Smith MD [facility] 01/12/22 Office Visit [facility] Showing recent visits within past 365 days and meeting all other requirements Future Appointments Date Type Provider Dept 02/23/23 Appointment Ángel Smith MD [facility] Showing future appointments within next 90 days and meeting all other requirements GE PAINTER HELPER documented in this encounter Plan of Treatment Upcoming Encounters Date Type Department Care Team (Late st Contact Info) Description 07/16/2024 7:15 AM CDT Office Visit [facility] - Family Medicine - [place] #2 [place] [address] Ángel Smith MD [address] [address] documented as of this encounter Visit Diagnoses Not on filedocumented in this encounter Additional Health Concerns Assessment Noted Time PHQ-9 Depression Total Score: 0 12/31/19 21 11:20 AM BRIDGE PAINTER HELPER documented as of this encounter Care Teams Child Health Associate Relationship Specialty Start Date End Date Ángel Smith MD #[address] [place] [address] PCP - General Family Medicine 06/07/16 Oivdio Callahan MD [address] [facility] [address] [place] [address] Consulting Physician Obstetrics & Gynecology 02/23/18 documented as of this encounter
--- OUTSIDE RECORDS SUMMARY | 2024-06-26 11:36 | XMS_ITS | Encounter Summary ---
Author Organization [facility] Address [address] [place] [address] Phone Care Team Providers Care Soldering Machine Operator Name Role Phone Ángel Smith MD Primary Care Provider Ovidio Callahan MD Unavailable [phone] Reason for Visit * Reason Comments Medication Refill Encounter Details Date Type Department Care Team (Late st Contact Info) Description 12/28/2020 Refill [facility] #2 [place] [address] Ángel Smith MD #[address] [address] Medication Refill Social History Tobacco Use Types [...] have Coronavirus / COVID-19? 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 Requested Prescriptions Pending Prescriptions Disp Refills HYDROcodone-acetaminophen (NORCO) 5-325 MG Tablet [Pharmacy Med Name: HYDROCODON-APAP 5-325MG TAB 5-325 Tablet] 60 Tablet 0 Sig: TAKE 1 TABLET BY MOUTH EVERY 4 HOURS NEEDED (PAIN). [facility]finch Not Delegated - Analgesics: Opioid Agonist Combinations Failed - 12/29/2020 8:34 AM Failed - This refill cannot be delegated Passed - Valid encounter within last 6 months Past Office Visits Recent Outpatient Visits 3 months ago Anxiety [facility] - Jorge Wright APRN, CNP 7 months ago Physical exam, annual (Adult) [facility] - Ángel Diop MD 10 months ago Chronic midline low back pain without sciatica [facility] - Ángel Diop MD 1 year ago Anxiety [facility] - Ángel Diop MD 1 year ago Anxiety [facility] - Ángel Diop MD Upcoming Appointments Future Appointments Tomorrow Ángel Smith MD [facility] CANE WEIGHER HELPER - Recent and Past Visits Recent Visits Date Type Provider Dept 09/29/20 Office Visit Jorge Abdalla APRN, CNP [facility] 05/12/20 Office Visit Ángel Smith MD [facility] 02/18/20 Telemedicine Ángel Smith MD [facility] 10/14/19 Office Visit Á[facility] Smith MD [facility] Showing recent visits within past 460 days with a meds authorizing provider and meeting all other requirements Future Appointments Date Type Provider Dept 12/30/20 Appointment Ángel Smith MD [facility] Showing future appointments within next 90 days with a meds authorizing provider and meeting all other requirements 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 MANAGER documented in this encounter Plan of Treatment Upcoming Encounters Date Type Department Care Team (Late st Contact Info) Description 07/16/2024 7:15 AM CDT [facility] Visit [facility] #[address] [place] [address] Ángel Smith MD #[address] [address] documented as of this encounter Visit Diagnoses Diagnosis Chronic midline low back pain without sciatica documented in this encounter Additional Health Concerns Assessment Noted Time PHQ-9 Depression Total Score: 0 05/13/19 21 6:06 PM CDT documented as of this encounter Care Teams Soldering Machine Operator Relationship Specialty Start Date End Date Ángel Smith MD #[address] [address] PCP - General Family Medicine 06/07/16 Ovidio Callahan MD 4 [facility] [address] [place] [address] Consulting Physician Obstetrics & Gynecology 02/23/18 documented as of this encounter
--- OUTSIDE RECORDS SUMMARY | 2024-06-26 11:36 | XMS_ITS | Encounter Summary ---
Author Organization [facility] Address [address] [place] [address] Phone Care Team Providers Care Senior Product Designer Name Role Phone Ángel Smith MD Primary Care Provider Ovidio Callahan MD Unavailable [phone] Reason for Visit * Reason Comments Medication Refill Encounter Details Date Type Department Care Team (Late st Contact Info) Description 08/24/2020 Refill [facility] #2 [place] [address] Ángel Smith MD #[address] [address] Medication Refill Social History Tobacco Use Types [...] Telephone Encounter - Maite Padilla RN - 08/25/2020 11:01 AM CDT ALPRAZolam (XANAX) 1 MG Tablet [Pharmacy Med Name: ALPRAZOLAM 1 MG TABS 1 Tablet] 60 Tablet 0 08/24/2020 Request refused: Patient needs appointment Sig - Route: TAKE 1 TABLET BY MOUTH 3 TIMES DAILY NEEDED FOR ANXIETY. - Oral Class: E Prescribe ALPRAZolam (XANAX) 1 MG Tablet [Pharmacy Med Name: ALPRAZOLAM 1 MG TABS 1 Tablet] [[id number]] 1034 Status: Pending Ordering user: Ángel Smith MD 08/24/20 1034 Authorized by: Ángel Smith MD PRN reasons: Anxiety Frequency: TID PRN 08/24/20 - Until Discontinued Pended by: Lona Awad Ncpdp In 08/22/20 0[address] documented in this encounter Plan of Treatment Upcoming Encounters Date Type Department Care Team (Late st Contact Info) Description 07/16/2024 7:15 AM CDT [facility] [place] #2 [place] [address] Ángel Smith MD #[address] [address] documented as of this encounter Visit Diagnoses Not on filedocumented in this encounter Additional Health Concerns Assessment Noted Time PHQ-9 Depression Total Score: 0 05/13/19 21 6:06 PM CDT documented as of this encounter Care Teams Senior Product Designer Relationship Specialty Start Date End Date Ángel Smith MD #[address] [address] PCP - General Family Medicine 06/07/16 Ovidio Callahan MD [address] [place] [address] [facility] [address] [place] [address] Consulting Physician Obstetrics & Gynecology 02/23/18 documented as of this encounter
--- OUTSIDE RECORDS SUMMARY | 2024-06-26 11:36 | XMS_ITS | Encounter Summary ---
Author Organization [facility] Address [address] [place] [address] Phone Care Team Providers Care Transportation Security Officer Name Role Phone Ángel Smith MD Primary Care Provider [phone] Ovidio Callahan MD Unavailable [phone] Reason for Visit * Reason Comments Medication Refill Encounter Details Date Type Department Care Team (Late st Contact Info) Description 07/24/2020 Refill [facility] #2 [place] [address] Ángel Smith MD #[address] [address] Medication Refill Social History Tobacco Use Types [...] Telephone Encounter - Ángel Smith MD - 07/25/2020 7:06 AM CDT Prescription pending signature * Telephone Encounter - Maite Padilla RN - 07/24/2020 1:43 PM CDT [place] 06/25/20 Medication failed the protocol, provider to review and approve the medication order if appropriate. Requested Prescriptions Pending Prescriptions Disp Refills ALPRAZolam (XANAX) 1 MG Tablet [Pharmacy Med Name: ALPRAZOLAM 1 MG TABS 1 Tablet] 60 Tablet 0 Sig: TAKE 1 TABLET BY MOUTH 3 TIMES DAILY NEEDED FOR ANXIETY. healthfinch Not Delegated - Psychiatry: Anxiolytics/Hypnotics Failed - 07/24/2020 1:43 PM Failed - This refill cannot be delegated Passed - Valid encounter within last 6 months Past Office Visits Recent Outpatient Visits 2 months ago Physical exam, annual (Adult) [facility] - Ángel Diop MD 5 months ago Chronic midline low back pain without sciatica [facility] Ángel Diop MD 9 months ago Anxiety [facility] - Ángel Diop MD 1 year ago Anxiety [facility] Ángel Diop MD 1 year ago Anxiety [facility] Ángel Diop MD Upcoming Appointments SAMPLE SEWER - Recent and Past Visits Recent Visits Date Type Provider Dept 05/12/20 Office Visit Ángel Smith MD [facility] 02/18/20 Telemedicine Ángel Smith MD [facility] 10/14/19 Office Visit Ángel Smith MD [facility] 05/21/19 Telemedicine Á[facility]el [facility] MD [facility] Showing recent visits within past 460 days [...] [facility] - [place] [address] [place] [address] Ángel Smith MD [facility] [place] [address] documented as of this encounter Visit Diagnoses Not on filedocumented in this encounter Additional Health Concerns Assessment Noted Time PHQ-9 Depression Total Score: 0 05/13/19 21 6:06 PM CDT documented as of this encounter Care Teams Transportation Security Officer Relationship Specialty Start Date End Date Ángel Smith MD [address] [address] PCP - General Family Medicine 06/07/16 Ovidio Callahan MD 4 [facility] [address] [place] [address] Consulting Physician Obstetrics & Gynecology 02/23/18 documented as of this encounter
--- OUTSIDE RECORDS SUMMARY | 2024-06-26 11:36 | XMS_ITS | Encounter Summary ---
Author Organization [facility] Address [address] [place] [address] Phone Care Team Providers Care Clinical Massage Therapist Name Role Phone Ángel Smith MD Primary Care Provider Ovidio Callahan MD Unavailable [phone] Reason for Visit * Reason Comments Medication Refill Encounter Details Date Type Department Care Team (Late st Contact Info) Description 01/06/2020 Refill [facility] #2 [place] [address] Ángel Smith MD #[address] [address] Medication Refill Social History Tobacco Use Types [...] Telephone Encounter - Maite Padilla RN - 01/06/2020 1:34 PM CST Last OV 10/14/19 - no fol up - last Rx 12/17/19 This medication is duplicated on patient's medication list. Medication failed the protocol, provider to review and approve the medication order if appropriate. Requested Prescriptions Pending Prescriptions Disp Refills HYDROcodone-acetaminophen (NORCO) 5-325 MG Tablet [Pharmacy Med Name: HYDROCODON-APAP 5-325MG TAB 5-325 Tablet] 75 Tab 0 Sig: TAKE 1 TAB BY MOUTH EVERY 4 HOURS NEEDED (PAIN). Not Delegated - Analgesics: Opioid Agonist Combinations Failed - 01/06/2020 8:42 AM Failed - This refill cannot be delegated Passed - Valid encounter within last 6 months Past Office Visits Recent Outpatient Visits 2 months ago Anxiety [facility] - Ángel Diop MD 7 months ago Anxiety [facility] Ángel Diop MD 1 year ago Anxiety [facility] Ángel Diop MD 1 year ago [facility], CODING FILE CLERK 1 year ago Chronic midline low back pain without sciatica [facility] Ángel Diop MD Upcoming Appointments BUSINESS OPERATIONS CONSULTANT - Recent and Past Visits Recent Visits Date Type Provider Dept 10/14/19 Office Visit Ángel Smith MD [facility] 05/21/19 Telemedicine Ángel Smith MD [facility] 12/25/18 Office Visit Ángel Smith MD [facility] Showing recent visits within past 460 days with a meds authorizing provider and meeting all other requirements Future Appointments No visits were found meeting these conditions. Showing future appointments within next 90 days with a meds authorizing provider and meeting all other requirements OBIOLOGY INSTRUCTOR documented in this encounter Plan of Treatment Upcoming Encounters Date Type Department Care Team ([facility] st Contact Info) Description 07/16/2024 7:15 AM CDT [facility] [place] [address] Ángel Smith MD #[address] [address] documented as of this encounter Visit Diagnoses Not on filedocumented in this encounter Additional Health Concerns Assessment Noted Time PHQ-9 Depression Total Score: 0 06/01/19 19 2:00 PM CDT documented as of this encounter Care Teams Clinical Massage Therapist Relationship Specialty Start Date End Date Ángel Smith MD [address] [place] [address] PCP - General Family Medicine 06/07/16 Ovidio Callahan MD [address] [facility] [address] [place] [address] Consulting Physician Obstetrics & Gynecology 02/23/18 documented as of this encounter
--- OUTSIDE RECORDS SUMMARY | 2024-06-26 11:36 | XMS_ITS | Encounter Summary ---
Author Organization [facility] Address [address] [place] [address] Phone Care Team Providers Care Heater Helper Name Role Phone Ángel Smith MD Primary Care Provider Ovidio Callahan MD Unavailable [phone] Reason for Visit * Reason Comments Medication Refill Encounter Details Date Type Department Care Team (Late st Contact Info) Description 09/22/2020 Refill [facility] #2 [place] [address] Ángel Smith MD #[address] [address] Medication Refill Social History Tobacco Use Types [...] have Coronavirus / COVID-19? No / Unsure 09/22/2020 3:16 PM CDT documented as of this encounter Miscellaneous Notes * Telephone Encounter - Maite Padilla RN - 09/22/2020 4:05 PM CDT OV 10/01/20 * Telephone Encounter - Brenda Blackburn RN - 09/22/2020 3:58 PM CDT [place] last fill date 08/25/20 Medication failed the protocol, provider to review and approve the medication order if appropriate. Requested Prescriptions Pending Prescriptions Disp Refills ALPRAZolam (XANAX) 1 MG Tablet [Pharmacy Med Name: ALPRAZOLAM 1 MG TABS 1 Tablet] 60 Tablet Sig: Take 1 Tablet by mouth 3 times daily as needed for Anxiety. There is no refill protocol information for this order documented in this encounter Plan of Treatment Upcoming Encounters Date Type Department Care Team (Late st Contact Info) Description 07/16/2024 7:15 AM CDT Office Visit [facility] - Family Medicine [facility] #2 [place] [address] Ángel Smith MD #[address] [address] documented as of this encounter Visit Diagnoses Not on filedocumented in this encounter Additional Health Concerns Assessment Noted Time PHQ-9 Depression Total Score: 0 05/13/19 21 6:06 PM CDT documented as of this encounter Care Teams Heater Helper Relationship Specialty Start Date End Date Ángel Smith MD #[address] [address] PCP - General Family Medicine 06/07/16 Ovidio Callahan MD [address] [place] [address] [place] [address] Consulting Physician Obstetrics & Gynecology 02/23/18 documented as of this encounter
--- OUTSIDE RECORDS SUMMARY | 2024-06-26 11:36 | XMS_ITS | Encounter Summary ---
Author Organization [facility] Address [address] [place] [address] Phone Care Team Providers Care Corn Picker Name Role Phone Ángel Smith MD Primary Care Provider Ovidio Callahan MD Unavailable [phone] Reason for Visit * Reason Comments Medication Refill Encounter Details Date Type Department Care Team (Late st Contact Info) Description 03/10/2020 Refill [facility] #2 [place] [address] Ángel Smith MD #[address] [address] Medication Refill Social History Tobacco Use Types [...] Telephone Encounter - Ángel Smith MD - 03/10/2020 6:15 PM CST Prescription pending signature ION GANG WORKER * Telephone Encounter - Maite Padilla RN - 03/10/2020 2:27 PM CST [place] 02/11/20 - post date fill 03/12/20 Medication failed the protocol, provider to review and approve the medication order if appropriate. Requested Prescriptions Pending Prescriptions Disp Refills ALPRAZolam (XANAX) 1 MG Tablet [Pharmacy Med Name: ALPRAZOLAM 1 MG TABS 1 Tablet] 60 Tab 0 Sig: TAKE 1 TAB BY MOUTH 3 TIMES DAILY NEEDED FOR ANXIETY. Not Delegated - Psychiatry: Anxiolytics/Hypnotics Failed - 03/10/2020 2:27 PM Failed - This refill cannot be delegated Passed - Valid encounter within last 6 months Past Office Visits Recent Outpatient Visits 3 weeks ago Chronic midline low back pain without sciatica [facility] Ángel Diop MD 4 months ago Anxiety [facility] Ángel Diop MD 9 months ago Anxiety [facility] Ángel Diop MD 1 year ago Anxiety [facility] Ángel Diop MD 1 year ago Abscess [facility] Eboni Arthur APN, VENEER STACKER Upcoming Appointments Future Appointments In 1 month Ángel Smith MD [facility] MINIATURE MODEL [facility] - Recent and Past Visits Recent Visits Date Type Provider Dept 02/18/20 Telemedicine Ángel Smith MD [facility] 10/14/19 Office Visit Ángel Smith MD [facility] 05/21/19 Telemedicine Ángel Smith MD [facility] 12/25/18 Office Visit Ángel Smith MD [facility] Showing recent visits within past 460 days with a meds authorizing provider and meeting all other requirements Future Appointments Date Type Provider Dept 04/20/20 Appointment Ángel Smith MD [facility] Showing future appointments within next 90 days with a meds authorizing provider and meeting all other requirements ION GANG WORKER documented in this encounter Plan of Treatment Upcoming Encounters Date Type Department Care Team (Late st Contact Info) Description 07/16/2024 7:15 AM CDT Office Visit [facility] #[address] [place] [address] Ángel Smith MD [facility] [place] [address] documented as of this encounter Visit Diagnoses Not on filedocumented in this encounter Additional Health Concerns Assessment Noted Time PHQ-9 Depression Total Score: 0 06/01/19 19 2:00 PM CDT documented as of this encounter Care Teams Corn Picker Relationship Specialty Start Date End Date Ángel Smith MD #2 [address] [address] PCP - General Family Medicine 06/07/16 [address] [facility] [address] [place] [address] Consulting Physician Obstetrics & Gynecology 02/23/18 documented as of this encounter
--- OUTSIDE RECORDS SUMMARY | 2024-06-26 11:36 | XMS_ITS | Encounter Summary ---
Author Organization [facility] Address [address] [place] [address] Phone Care Team Providers Care Blanchard Grinder Operator Name Role Phone Ángel Smith MD Primary Care Provider Ovidio Callahan MD Unavailable [phone] Reason for Visit * Reason Comments Medication Refill Encounter Details Date Type Department Care Team (Late st Contact Info) Description 11/24/2020 Refill [facility] #2 [place] [address] Ángel Smith MD #[address] [address] Medication Refill Social History Tobacco Use Types [...] Telephone Encounter - Ángel Smith MD - 12/01/2020 8:13 AM CDT Prescription pending signature * Telephone Encounter - Maite Padilla RN - 11/25/2020 9:15 AM CDT [place] 10/30/20 for 10 days Medication failed the protocol, provider to review and approve the medication order if appropriate. Requested Prescriptions Pending Prescriptions Disp Refills HYDROcodone-acetaminophen (NORCO) 5-325 MG Tablet [Pharmacy Med Name: HYDROCODON-APAP 5-325MG TAB 5-325 Tablet] 60 Tablet 0 Sig: TAKE 1 TABLET BY MOUTH EVERY 4 HOURS NEEDED (PAIN). healthfinch Not Delegated - Analgesics: Opioid Agonist Combinations Failed - 11/25/2020 9:15 AM Failed - This refill cannot be delegated Passed - Valid encounter within last 6 months Past Office Visits Recent Outpatient Visits 1 month ago [facility], [facility] 6 months ago Physical exam, annual (Adult) [facility] - Ángel Diop MD 9 months ago Chronic midline low back pain without sciatica [facility] Ángel Diop MD 1 year ago [facility] 1 year ago Anxiety [facility] Ángel Diop MD Upcoming Appointments Future Appointments In 1 month Ángel Smith MD [facility] AIR[facility] MAINTENANCE CHIEF - Recent and Past Visits Recent Visits [...] Provider Dept 12/30/20 Appointment Ángel Smith MD [facility] Showing future appointments within next 90 days with a meds authorizing provider and meeting all other requirements documented in this encounter Plan of Treatment Upcoming Encounters Date Type Department Care Team (Late st Contact Info) Description 07/16/2024 7:15 AM CDT Office Visit [facility] [place] #2 [place] [address] Ángel Smith MD #[address] [address] documented as of this encounter Visit Diagnoses Diagnosis Chronic midline low back pain without sciatica documented in this encounter Additional Health Concerns Assessment Noted Time PHQ-9 Depression Total Score: 0 05/13/19 21 6:06 PM CDT documented as of this encounter Care Teams Blanchard Grinder Operator Relationship Specialty Start Date End Date Ángel Smith MD #[address] [address] PCP - General Family Medicine 06/07/16 Ovidio Callahan MD [address] [place] [address] [facility] [address] [place] [address] Consulting Physician Obstetrics & Gynecology 02/23/18 documented as of this encounter
--- OUTSIDE RECORDS SUMMARY | 2024-06-26 11:36 | XMS_ITS | Encounter Summary ---
Author Organization [facility] Address [address] [place] [address] Phone Care Team Providers Care Rotary Adjuster Name Role Phone Ángel Smith MD Primary Care Provider [phone] Ovidio Callahan MD Unavailable [phone] Reason for Visit * Reason Comments Medication Refill Encounter Details Date Type Department Care Team (Late st Contact Info) Description 05/29/2020 Refill [facility] #2 [place] [address] Ángel Smith MD #[address] [address] Medication Refill Social History Tobacco Use Types [...] Telephone Encounter - Maite Padilla RN - 05/29/2020 2:44 PM CDT [place] 05/06/20 Medication failed the protocol, provider to review and approve the medication order if appropriate. Requested Prescriptions Pending Prescriptions Disp Refills HYDROcodone-acetaminophen (NORCO) 5-325 MG Tablet [Pharmacy Med Name: HYDROCODON-APAP 5-325MG TAB 5-325 Tablet] 75 Tablet 0 Sig: TAKE 1 TABLET BY MOUTH EVERY 4 HOURS NEEDED FOR PAIN healthfinch Not Delegated - Analgesics: Opioid Agonist Combinations Failed - 05/29/2020 2:43 PM Failed - This refill cannot be delegated Passed - Valid encounter within last 6 months Past Office Visits Recent Outpatient Visits 2 weeks ago Physical exam, annual (Adult) [facility] - Ángel Diop MD 3 months ago Chronic midline low back pain without sciatica [facility] Ángel Diop MD 7 months ago Anxiety [facility] Ángel Diop MD 1 year ago Anxiety [facility] - Ángel Diop MD 1 year ago Anxiety [facility] - Ángel Diop MD Upcoming Appointments SUPERINTENDENT STORAGE AREA - Recent and Past Visits Recent Visits Date Type Provider Dept 05/12/20 Office Visit Ángel Smith MD [facility] 02/18/20 Telemedicine Ángel Smith MD [facility] 10/14/19 Office Visit Ángel Smith MD [facility] 05/21/19 Telemedicine Ángel Smith MD [facility] Showing recent visits within past 460 [...] [facility] - [place] #[address] [place] [address] Ángel Smith MD #[address] [facility] [place] [address] documented as of this encounter Visit Diagnoses Not on filedocumented in this encounter Additional Health Concerns Assessment Noted Time PHQ-9 Depression Total Score: 0 05/13/19 21 6:06 PM CDT documented as of this encounter Care Teams Rotary Adjuster Relationship Specialty Start Date End Date Ángel Smith MD [address] [facility] [place] [address] PCP - General Family Medicine 06/07/16 Ovidio Callahan MD [address] [facility] [address] [place] [address] Consulting Physician Obstetrics & Gynecology 02/23/18 documented as of this encounter
--- OUTSIDE RECORDS SUMMARY | 2024-06-26 11:36 | XMS_ITS | Encounter Summary ---
Author Organization [facility] Address [address] [place] [address] Phone Care Team Providers Care Director Of Strategic Marketing Name Role Phone Ángel Smith MD Primary Care Provider Ovidio Callahan MD Unavailable [phone] Reason for Visit * Reason Comments Medication Refill Encounter Details Date Type Department Care Team (Late st Contact Info) Description 08/14/2023 Refill [facility] #2 [place] [address] Ángel Smith MD #[address] [address] Medication Refill Social History Tobacco Use Types [...] Telephone Encounter - Ariana Arboleda RN - 08/16/2023 9:45 AM CDT The original prescription was reordered on 08/15/2023 by Ángel Smith MD. Renewing this prescription may not be appropriate. documented in this encounter Plan of Treatment Upcoming Encounters Date Type Department Care Team (Late st Contact Info) Description 07/16/2024 7:15 AM CDT Office Visit [facility] - [facility] Medicine - [place] #2 [place] [address] Ángel Smith MD #[address] [address] documented as of this encounter Visit Diagnoses Diagnosis Chronic midline low back pain without sciatica Anxiety Anxiety state, unspecified documented in this encounter Additional Health Concerns Assessment Noted Time PHQ-9 Depression Total Score: 0 04/27/19 24 3:12 PM CDT documented as of this encounter Care Teams Director Of Strategic Marketing Relationship Specialty Start Date End Date Ángel Smith MD #[address] [address] PCP - General Family Medicine 06/07/16 Ovidio Callahan MD [address] [place] [address] [facility] [address] [place] [address] Consulting Physician Obstetrics & Gynecology 02/23/18 documented as of this encounter
--- OUTSIDE RECORDS SUMMARY | 2024-06-26 11:36 | XMS_ITS | Encounter Summary ---
Author Organization [facility] Address [address] [place] [address] Phone Care Team Providers Care Bulk Plant Manager Name Role Phone Ángel Smith MD Primary Care Provider Ovidio Callahan MD Unavailable [phone] Reason for Visit * Reason Comments Medication Refill Encounter Details Date Type Department Care Team (Late st Contact Info) Description 12/14/2020 Refill [facility] #2 [place] [address] Ángel Smith MD #[address] [address] Medication Refill Social History Tobacco Use Types [...] Telephone Encounter - Ángel Smith MD - 12/15/2020 1:48 PM CDT Prescription pending signature * Telephone Encounter - Sravani Hair RN - 12/15/2020 12:38 PM CDT [place] PDMP 11/17/2020, 20 day supply. Medication failed the protocol, provider to review [...] Visit [facility] - [facility] #2 [place] [address] Ángel Smith MD #[address] [address] documented as of this encounter Visit Diagnoses Diagnosis Anxiety Anxiety state, unspecified documented in this encounter Additional Health Concerns Assessment Noted Time PHQ-9 Depression Total Score: 0 05/13/19 21 6:06 PM CDT documented as of this encounter Care Teams Bulk Plant Manager Relationship Specialty Start Date End Date Ángel Smith MD #[address] [address] PCP - General Family Medicine 06/07/16 Ovidio Callahan MD [address] [place] [address] [address] [place] [address] Consulting Physician Obstetrics & Gynecology 02/23/18 documented as of this encounter
--- OUTSIDE RECORDS SUMMARY | 2024-06-26 11:36 | XMS_ITS | Encounter Summary ---
Author Organization [facility] Address [address] [place] [address] Phone Care Team Providers Care Heat And Vent Aircraft Mechanic Name Role Phone Ángel Smith MD Primary Care Provider Ovidio Callahan MD Unavailable [phone] Reason for Visit * Reason Comments Medication Refill Encounter Details Date Type Department Care Team (Late st Contact Info) Description 08/03/2020 Refill [facility] [address] [place], [place] [id number] Ángel Smith MD #[address] [address] Medication Refill Social History Tobacco Use Types [...] Telephone Encounter - Ángel Smith MD - 08/04/2020 9:08 AM CDT Prescription pending signature * Telephone Encounter - Maite Padilla RN - 08/04/2020 8:52 AM CDT [place] 07/05/20 [place] Medication failed the protocol, provider to review and approve the medication order if appropriate. Requested Prescriptions Pending Prescriptions Disp Refills losartan (COZAAR) 50 MG Tablet [Pharmacy Med Name: LOSARTAN POTASSIUM 50 MG TA 50 Tablet] 30 Tablet2 Sig: TAKE 1 TAB BY MOUTH DAILY. ARB Protocol Failed - 08/04/2020 8:39 AM Failed - Serum potassium on record in past 12 months No results found for: POTASSIUM, POCTK Failed - GFR on record in past 12 months No results found for: GFRNA Passed - BP on record in the past year Clinician-entered: BP Readings from Last 3 Encounters: 05/12/20 116/68 10/14/19 118/76 12/25/18 132/76 Patient-entered: No data recorded Passed - No positive test in the past 12 months or most recent test was negative Passed - Visit with relevant provider in past year or upcoming 90 days Recent Visits Date Type Provider Dept 05/12/20 Office Visit Ángel Smith MD [facility] 02/18/20 Telemedicine Ángel Smith MD [facility] 10/14/19 Office Visit Ángel Smith MD [facility] Showing recent visits within past 365 days and meeting all other requirements Future Appointments No visits were found meeting these conditions. Showing future appointments within next 90 days and meeting all other requirements Passed - No active on record HYDROcodone-acetaminophen (NORCO) 5-325 MG Tablet [Pharmacy Med Name: HYDROCODON-APAP 5-325MG TAB 5-325 Tablet] 60 Tablet 0 Sig: TAKE 1 TABLET BY MOUTH EVERY 4 HOURS NEEDED FOR PAIN healthfinch Not Delegated - Analgesics: Opioid Agonist Combinations Failed - 08/04/2020 8:39 AM Failed - This refill cannot be delegated Passed - Valid encounter within last 6 months Past Office Visits Recent Outpatient Visits 2 months ago Physical exam, annual (Adult) [facility] - Ángel Diop MD 5 months ago Chronic midline low back pain without sciatica [facility] Ángel Diop MD 9 months ago Anxiety [facility] Ángel Diop MD 1 year ago Anxiety [facility] Ángel Diop MD 1 year ago Anxiety [facility] Ángel Diop MD Upcoming Appointments COLLEGE FOOTBALL COACH - Recent and Past Visits Recent Visits Date Type Provider Dept 05/12/20 Office Visit Ángel Smith MD [facility] 02/18/20 Telemedicine Ángel Smith MD [facility] 10/14/19 Office Visit Ángel Smith MD [facility] 05/21/19 Telemedicine Ángel Smith MD [facility] Showing recent visits within past 460 days [...] Description 07/16/2024 7:15 AM CDT Office Visit [facility] #2 [facility] [place] [place] [address] Ángel Smith MD #[address] [address] documented as of this encounter Visit Diagnoses Not on filedocumented in this encounter Additional Health Concerns Assessment Noted Time PHQ-9 Depression Total Score: 0 05/13/19 21 6:06 PM CDT documented as of this encounter Care Teams Heat And Vent Aircraft Mechanic Relationship Specialty Start Date End Date Ángel Smith MD #[address] [address] PCP - General Family Medicine 06/07/16 Ovidio Callahan MD [address] [place] [address] Consulting Physician Obstetrics & Gynecology 02/23/18 documented as of this encounter
--- OUTSIDE RECORDS SUMMARY | 2024-06-26 11:36 | XMS_ITS | Encounter Summary ---
Author Organization [facility] Address [address] [place] [address] Phone Care Team Providers Care Cardiovascular Rn Name Role Phone Ángel Smith MD Primary Care Provider Ovidio Callahan MD Unavailable [phone] Reason for Visit * Reason Comments Medication Refill Encounter Details Date Type Department Care Team (Late st Contact Info) Description 12/09/2022 Refill [facility] #2 [place] [address] Ángel Smith MD #[address] [address] Medication Refill Social History Tobacco Use Types [...] Telephone Encounter - Maite Padilla RN - 12/09/2022 2:12 PM CDT PDMP 11/12/22 Medication failed the protocol, provider to review and approve the medication order if appropriate. Requested Prescriptions Pending Prescriptions Disp Refills ALPRAZolam (XANAX) 1 MG Tablet [Pharmacy Med Name: ALPRAZOLAM 1MG TABLET] 60 Tablet 0 Sig: TAKE 1 TABLET BY MOUTH THREE (3) TIMES DAILY NEEDED FOR ANXIETY. 8.31 Not Delegated - Benzodiazepines Protocol Failed - 12/09/2022 1:03 PM Failed - This refill cannot be delegated Passed - Visit with relevant provider in past 12 months or upcoming 90 days Recent Visits Date Type Provider Dept 11/22/22 Office Visit Ángel Smith MD [facility] 08/02/22 Office Visit Ángel Smith MD [facility] 04/13/22 Office Visit Ángel Smith MD [facility] 01/12/22 Office Visit Ángel Smith MD [facility] Showing recent visits within past 365 days and meeting all other requirements Future Appointments Date Type Provider Dept 02/23/23 Appointment Ángel Smith MD [facility] Showing future appointments within next 90 days and meeting all other requirements documented in this encounter Plan of Treatment Upcoming Encounters Date Type Department Care Team (Late st Contact Info) Description 07/16/2024 7:15 AM CDT Office Visit [facility] - Family Medicine - [place] [address] [place] [address] Ángel Smith MD #[address] [address] documented as of this encounter Visit Diagnoses Diagnosis Anxiety Anxiety state, unspecified documented in this encounter Additional Health Concerns Assessment Noted Time PHQ-9 Depression Total Score: 0 12/31/19 21 11:20 AM SOLE LEVELER documented as of this encounter Care Teams Cardiovascular Rn Relationship Specialty Start Date End Date Ángel Smith MD #2 [facility] [address] [place] [address] PCP - General Family Medicine 06/07/16 Ovidio Callahan MD [address] [facility] [address] [place] [address] Consulting Physician Obstetrics & Gynecology 02/23/18 documented as of this encounter
--- OUTSIDE RECORDS SUMMARY | 2024-06-26 11:36 | XMS_ITS | Encounter Summary ---
Author Organization [facility] Address [address] [place] [address] Phone Care Team Providers Care Image Scientist Name Role Phone Ángel Smith MD Primary Care Provider [phone] Ovidio Callahan MD Unavailable [phone] Reason for Visit * Reason Comments Medication Refill Encounter Details Date Type Department Care Team (Late st Contact Info) Description 10/18/2023 Refill [facility] #2 [place] [address] Ángel Smith MD #[address] [address] Medication Refill Social History Tobacco Use Types [...] Telephone Encounter - Maite Padilla RN - 10/19/2023 1:40 PM CDT Images from the original note were not included. HYDROcodone-Acetaminophen Dispensed Days Supply Quantity Provider Pharmacy HYDROCO/APAP TAB 5-325MG 10/10/2023 10 40 Tablet Ángel Smith MD [facility]... HYDROCO/APAP TAB 5-325MG 09/11/2023 10 40 Tablet Eboni Bonilla APRN, DEON [facility]... HYDROCO/APAP TAB 5-325MG 08/15/2023 10 40 Tablet Ángel Smith MD [facility]... Medication failed the [...] Delegated - Opioid Combinations Protocol Failed - 10/18/2023 7:41 AM Failed - This refill cannot be delegated Passed - Visit with relevant provider in past 12 months or upcoming 90 days Recent Visits Date Type Provider Dept 08/15/23 Office Visit Ángel Smith MD [facility] 04/27/23 Office Visit Ángel Smith MD [facility] 11/22/22 Office Visit Ángel Smith MD [facility] Showing recent visits within past 365 days and meeting all other requirements Future Appointments Date Type Provider Dept 11/14/23 Appointment Ángel Smith MD [facility] Showing future appointments within next 90 days and meeting all other requirements * Telephone Encounter - Maite Padilla RN - 10/18/2023 10:09 AM CDT Images from the original note were not included. HYDROcodone-Acetaminophen Dispensed Days Supply Quantity Provider Pharmacy HYDROCO/APAP TAB 5-325MG 10/10/2023 10 40 Tablet Ángel Smith MD [facility]... HYDROCO/APAP TAB 5-325MG 09/11/2023 10 40 Tablet Eboni Bonilla APRN, CNP [facility]... HYDROCO/APAP TAB 5-325MG 08/15/2023 10 40 Tablet Ángel Smith MD [facility]... documented in this encounter Plan of Treatment Upcoming Encounters Date Type Department Care Team (Late st Contact Info) Description 07/16/2024 7:15 AM CDT Office Visit [facility] - Family Medicine [facility] #2 [place] [address] Ángel Smith MD #[address] [address] documented as of this encounter Visit Diagnoses Diagnosis Chronic midline low back pain without sciatica documented in this encounter Additional Health Concerns Assessment Noted Time PHQ-9 Depression Total Score: 0 04/27/19 24 3:12 PM CDT documented as of this encounter Care Teams Image Scientist Relationship Specialty Start Date End Date Ángel Smith MD #[address] [address] PCP - General Family Medicine 06/07/16 Ovidio Callahan MD [address] [place] [address] [facility] [address] [place] [address] Consulting Physician Obstetrics & Gynecology 02/23/18 documented as of this encounter
--- OUTSIDE RECORDS SUMMARY | 2024-06-26 11:36 | XMS_ITS | Encounter Summary ---
Author Organization [facility] Address [address] [place] [address] Phone Care Team Providers Care Software Tools Developer Name Role Phone Ángel Smith MD Primary Care Provider [phone] Ovidio Callahan MD Unavailable [phone] Reason for Visit * Reason Comments Medication Refill Encounter Details Date Type Department Care Team (Late st Contact Info) Description 12/11/2023 Refill [facility] - [facility] - [place] [address]2 [place] [id number] Jorge Abdalla APRN, EL TEACHER #[address] [address] Medication Refill Social History Tobacco Use Types [...] Telephone Encounter - Maite Padilla RN - 12/11/2023 3:50 PM CDT Images from the original note were not included. HYDROcodone-Acetaminophen Dispensed Days Supply Quantity Provider Pharmacy HYDROCO/APAP TAB 5-325MG 11/27/2023 10 40 Jorge Abdalla APRN, CNP [facility]... HYDROCO/APAP TAB 5-325MG 11/13/2023 10 40 Ángel Smith MD [facility]... NOT a duplicate Medication failed the protocol, provider to review and approve the medication order if appropriate. Requested Prescriptions Pending Prescriptions Disp Refills HYDROcodone-acetaminophen (NORCO) 5-325 MG Tablet [Pharmacy Med Name: HYDROCODONE BITARTRATE/ACETAMINOPHEN 5-325MG TABLET] 40 Tablet 0 Sig: TAKE 1 TABLET BY MOUTH EVERY SIX (6) HOURS NEEDED FOR MODERATE OR MORE SEVERE PAIN. Not Delegated - Opioid Combinations Protocol Failed - 12/11/2023 12:26 PM Failed - This refill cannot be delegated Passed - Visit with relevant provider in past 12 months or upcoming 90 days Recent Visits Date Type Provider Dept 11/14/23 Office Visit Ángel Smith MD [facility] 08/15/23 Office Visit Ángel Smith MD [facility] 04/27/23 Office Visit [facility] MD [facility] Show[facility] recent visits within past 365 days and meeting all other requirements Future Appointments Date Type Provider Dept 02/19/24 Appointment Ángel Smith MD [facility] [place] Showing future appointments within next 90 days and meeting all other requirements documented in this encounter Plan of Treatment Upcoming Encounters Date Type Department Care Team (Late st Contact Info) Description 07/16/2024 7:15 AM CDT Office Visit [facility] - Family Medicine - [place] [address]2 [place] [address] Ángel Smith MD [address] [address] documented as of this encounter Visit Diagnoses Diagnosis Chronic midline low back pain without sciatica documented in this encounter Additional Health Concerns Assessment Noted Time PHQ-9 Depression Total Score: 0 04/27/19 24 3:12 PM CDT documented as of this encounter Care Teams Software Tools Developer Relationship Specialty Start Date End Date Ángel Smith MD #2 [facility] [address] [facility] [address] PCP - General Family Medicine 06/07/16 Ovidio Callahan MD [address] [facility] [address] [place] [address] Consulting Physician Obstetrics & Gynecology 02/23/18 documented as of this encounter
--- OUTSIDE RECORDS SUMMARY | 2024-06-26 11:36 | XMS_ITS | Encounter Summary ---
Author Organization [facility] Address [address] [place] [address] Phone Care Team Providers Care Machine Made Shoe Unit Worker Name Role Phone Ángel Smith MD Primary Care Provider Ovidio Callahan MD Unavailable [phone] Reason for Visit * Reason Comments Medication Refill Encounter Details Date Type Department Care Team (Late st Contact Info) Description 07/02/2020 Refill [facility] #2 [place] [address] Ángel Smith MD #[address] [address] Medication Refill Social History Tobacco Use Types [...] Telephone Encounter - Ángel Smith MD - 07/02/2020 1:31 PM CDT Prescription pending signature * Telephone Encounter - Brenda Blackburn RN - 07/02/2020 12:59 PM CDT [place] last fill date 06/05/20 Medication failed the protocol, provider to review and approve the medication order if appropriate. Requested Prescriptions Pending Prescriptions Disp Refills HYDROcodone-acetaminophen (NORCO) 5-325 MG Tablet [Pharmacy Med Name: HYDROCODON-APAP 5-325MG TAB 5-325 Tablet] 75 Tablet Sig: TAKE 1 TABLET BY MOUTH EVERY 4 HOURS NEEDED FOR PAIN healthfinch Not Delegated - Analgesics: Opioid Agonist Combinations Failed - 07/02/2020 12:59 PM Failed - This refill cannot be delegated Passed - Valid encounter within last 6 months Past Office Visits Recent Outpatient Visits 1 month ago Physical exam, annual (Adult) [facility] - Ángel Diop MD 4 months ago Chronic midline low back pain without sciatica [facility] Ángel Diop MD 8 months ago Anxiety [facility] - Ángel Diop MD 1 year ago Anxiety [facility] - Ángel Diop MD 1 year ago Anxiety [facility] Ángel Diop MD Upcoming Appointments SOLID WASTE MANAGER - Recent and Past Visits Recent Visits Date Type Provider Dept 05/12/20 Office Visit Ángel Smith MD [facility] 02/18/20 Telemedicine Ángel Smith MD [facility] 10/14/19 Office Visit Ángel Smith MD [facility] 05/21/19 Telemedicine Ángel Smith MD [facility] Showing recent visits within past 460 days [...] [facility] - Family Medicine - [place] #[address] [place] [address] Ángel Smith MD #[address] [address] documented as of this encounter Visit Diagnoses Not on filedocumented in this encounter Additional Health Concerns Assessment Noted Time PHQ-9 Depression Total Score: 0 05/13/19 21 6:06 PM CDT documented as of this encounter Care Teams Machine Made Shoe Unit Worker Relationship Specialty Start Date End Date Ángel Smith MD #[address] [address] PCP - General Family Medicine 06/07/16 Ovidio Callahan MD 4 [facility] [address] [place] [address] Consulting Physician Obstetrics & Gynecology 02/23/18 documented as of this encounter
--- OUTSIDE RECORDS SUMMARY | 2024-06-26 11:36 | XMS_ITS | Encounter Summary ---
Author Organization [facility] Address [address] [place] [address] Phone Care Team Providers Care Telegraph Service Rater Name Role Phone Ángel Smith MD Primary Care Provider [phone] Ovidio Callahan MD Unavailable [phone] Reason for Visit * Reason Comments Medication Refill Encounter Details Date Type Department Care Team (Late st Contact Info) Description 06/13/2023 Refill [facility] Family Medicine [facility] #2 [place] [address] Ángel Smith MD #[address] [address] Medication Refill Social History Tobacco Use Types [...] Telephone Encounter - Maite Padilla RN - 06/13/2023 1:57 PM CDT PDMP 05/16/23 Medication failed the protocol, provider to review and approve the medication order if appropriate. Requested Prescriptions Pending Prescriptions Disp Refills ALPRAZolam (XANAX) 1 MG Tablet [Pharmacy Med Name: ALPRAZOLAM 1MG TABLET] 60 Tablet 0 Sig: TAKE 1 TABLET BY MOUTH TWO (2) TIMES DAILY NEEDED FOR ANXIETY. 2.27 Not Delegated - Benzodiazepines Protocol Failed - 06/13/2023 9:05 AM Failed - This refill cannot be [...] NEEDED FOR MODERATE OR MORE SEVERE PAIN. 2.27 Not Delegated - Opioid Combinations Protocol Failed - 06/13/2023 9:05 AM Failed - This refill cannot be [...] Office Visit [facility] - Family [facility] #[address] [place] [address] Ángel Smith MD [address] [address] documented as of this encounter Visit Diagnoses Diagnosis Anxiety Anxiety state, unspecified Chronic midline low back pain without sciatica documented in this encounter Additional Health Concerns Assessment Noted Time PHQ-9 Depression Total Score: 0 04/27/19 24 3:12 PM CDT documented as of this encounter Care Teams Telegraph Service Rater Relationship Specialty Start Date End Date Ángel Smith MD #[address] [address] PCP - General Family Medicine 06/07/16 Ovidio Callahan MD 4 [facility] [address] [place] [address] Consulting Physician Obstetrics & Gynecology 02/23/18 documented as of this encounter
--- OUTSIDE RECORDS SUMMARY | 2024-06-26 11:36 | XMS_ITS | Encounter Summary ---
Author Organization [facility] Address [address] [place] [address] Phone Care Team Providers Care Correctional Case Manager Name Role Phone Ángel Smith MD Primary Care Provider Ovidio Callahan MD Unavailable [phone] Reason for Visit * Reason Comments Medication Refill Encounter Details Date Type Department Care Team (Late st Contact Info) Description 11/09/2022 Refill [facility] - [facility] Medicine [facility] #2 [place] [address] Ángel Smtih MD #[address] [address] Medication Refill Social History Tobacco Use Types [...] Telephone Encounter - Maite Padilla RN - 11/10/2022 12:40 PM CDT PDMP 10/13/22 Medication failed the protocol, provider to review and approve the medication order if appropriate. Requested Prescriptions Pending Prescriptions Disp Refills ALPRAZolam (XANAX) 1 MG Tablet [Pharmacy Med Name: ALPRAZOLAM 1MG TABLET] 60 Tablet 0 Sig: TAKE 1 TABLET BY MOUTH THREE (3) TIMES DAILY NEEDED FOR ANXIETY. 8.31 Not Delegated - Benzodiazepines Protocol Failed - 11/09/2022 3:43 PM Failed - This refill cannot be delegated Passed - Visit with relevant provider in past 12 months or upcoming 90 days Recent Visits Date Type Provider Dept 08/02/22 Office Visit Ángel Smith MD [facility] 04/13/22 Office Visit Ángel Smith MD [facility] 01/12/22 Office Visit Ángel Smith MD [facility] Showing recent visits within past 365 days and meeting all other requirements Future Appointments Date Type Provider Dept 11/22/22 Appointment Ángel Smith MD [facility] Showing future appointments within next 90 days and meeting all other requirements documented in this encounter Plan of Treatment Upcoming Encounters Date Type Department Care Team (Late st Contact Info) Description 07/16/2024 7:15 AM CDT Office Visit [facility] - Family Medicine - [place] [address] [place] [address] Ángel Smith MD #[address] [address] documented as of this encounter Visit Diagnoses Diagnosis Anxiety Anxiety state, unspecified documented in this encounter Additional Health Concerns Assessment Noted Time PHQ-9 Depression Total Score: 0 12/31/19 21 11:20 AM DEVELOPMENT COACH documented as of this encounter Care Teams Correctional Case Manager Relationship Specialty Start Date End Date Ángel Smith MD [address] [place] [address] PCP - General Family Medicine 06/07/16 Ovidio Callahan MD [address] [facility] [address] [place] [address] Consulting Physician Obstetrics & Gynecology 02/23/18 documented as of this encounter
--- OUTSIDE RECORDS SUMMARY | 2024-06-26 11:36 | XMS_ITS | Encounter Summary ---
Author Organization [facility] Address [address] [place] [address] Phone Care Team Providers Care Certified Retinal Angiographer Name Role Phone Ángel Smith MD Primary Care Provider Ovidio Callahan MD Unavailable [phone] Reason for Visit * Reason Comments Medication Refill Encounter Details Date Type Department Care Team (Late st Contact Info) Description 05/25/2020 Refill [facility] #2 [place] [address] Ángel Smith MD #[address] [address] Medication Refill Social History Tobacco Use Types [...] Telephone Encounter - Ángel Smith MD - 05/26/2020 9:03 AM CDT Prescription pending signature * Telephone Encounter - Maite Padilla RN - 05/26/2020 8:20 AM CDT [place] PD[place] 05/06/20 for 20 days Medication failed the protocol, provider to review and approve the medication order if appropriate. Requested Prescriptions Pending Prescriptions Disp Refills ALPRAZolam (XANAX) 1 MG Tablet [Pharmacy Med Name: ALPRAZOLAM 1 MG TABS 1 Tablet] 60 Tablet 0 Sig: TAKE 1 TABLET BY MOUTH 3 TIMES DAILY NEEDED FOR ANXIETY. Not Delegated - Psychiatry: Anxiolytics/Hypnotics Failed - 05/26/2020 8:19 AM Failed - This refill cannot be delegated Passed - Valid encounter within last 6 months Past Office Visits Recent Outpatient Visits 2 weeks ago Physical exam, annual (Adult) [facility] - Ángel Diop MD 3 months ago Chronic midline low back pain without sciatica [facility] - Ángel Diop MD 7 months ago Anxiety [facility] - Ángel Diop MD 1 year ago Anxiety [facility] - Ángel Diop MD 1 year ago Anxiety [facility] - Ángel Diop MD Upcoming Appointments LUMBER HANDLER - Recent and Past Visits Recent Visits Date Type Provider Dept 05/12/20 Office Visit Ángel Smith MD [facility] 02/18/20 Telemedicine Ángel Smith MD [facility] 10/14/19 Office Visit Ángel Smith MD [facility] 05/21/19 Telemedicine Ángel Smith MD [facility] Showing recent visits within past 460 days [...] Description 07/16/2024 7:15 AM CDT Office Visit [facility] - Family Medicine [facility] #2 [place] [address] Ángel Smith MD #[address] [address] documented as of this encounter Visit Diagnoses Not on filedocumented in this encounter Additional Health Concerns Assessment Noted Time PHQ-9 Depression Total Score: 0 05/13/19 21 6:06 PM CDT documented as of this encounter Care Teams Certified Retinal Angiographer Relationship Specialty Start Date End Date Ángel Smith MD #[address] [address] PCP - General Family Medicine 06/07/16 Ovidio Callahan MD 4 [facility] [address] [place] [address] Consulting Physician Obstetrics & Gynecology 02/23/18 documented as of this encounter
--- OUTSIDE RECORDS SUMMARY | 2024-06-26 11:36 | XMS_ITS | Encounter Summary ---
Author Organization [facility] Address [address] [place] [address] Phone Care Team Providers Care Corn Miller Name Role Phone Ángel Smith MD Primary Care Provider [phone] Ovidio Callahan MD Unavailable [phone] Reason for Visit * Reason Comments Medication Refill Encounter Details Date Type Department Care Team (Late st Contact Info) Description 06/22/2020 Refill [facility] #2 [place] [address] Ángel Smith MD #[address] [address] Medication Refill Social History Tobacco Use Types [...] Telephone Encounter - Ángel Smith MD - 06/23/2020 6:49 PM CDT Prescription pending signature * Telephone Encounter - Brenda Blackburn RN - 06/22/2020 4:07 PM CDT [place] last fill date 05/26/20 Medication failed the protocol, provider to review and approve the medication order if appropriate. Requested Prescriptions Pending Prescriptions Disp Refills ALPRAZolam (XANAX) 1 MG Tablet [Pharmacy Med Name: ALPRAZOLAM 1 MG TABS 1 Tablet] 60 Tablet Sig: TAKE 1 TABLET BY MOUTH 3 TIMES DAILY NEEDED FOR ANXIETY. 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 Recent Visits Date Type Provider Dept 05/12/20 Office Visit Ángel Smith MD [facility] 02/18/20 Telemedicine Ángel Smith MD [facility] 10/14/19 Office Visit Ángel Smith MD [facility] 05/21/19 Telemedicine [facility] within past 460 days [...] [facility] - [place] [address] [place] [address] Ángel Smith MD #[address] [address] documented as of this encounter Visit Diagnoses Not on filedocumented in this encounter Additional Health Concerns Assessment Noted Time PHQ-9 Depression Total Score: 0 05/13/19 21 6:06 PM CDT documented as of this encounter Care Teams Corn Miller Relationship Specialty Start Date End Date Ángel Smith MD #[address] [address] PCP - General Family Medicine 06/07/16 Ovidio Callahan MD 4 [facility] [address] [place] [address] Consulting Physician Obstetrics & Gynecology 02/23/18 documented as of this encounter
--- OUTSIDE RECORDS SUMMARY | 2024-06-26 11:36 | XMS_ITS | Encounter Summary ---
Author Organization [facility] Address [address] [place] [address] Phone Care Team Providers Care Watch Case Polisher Name Role Phone Ángel Smith MD Primary Care Provider Ovidio Callahan MD Unavailable Reason for Visit * Reason Comments Medication Refill Encounter Details Date Type Department Care Team (Late st Contact Info) Description 01/09/2023 Refill [facility] #2 [place] [address] Ángel Smith MD #[address] [address] Medication Refill Social History Tobacco Use Types [...] Telephone Encounter - Maite Padilla RN - 01/09/2023 4:44 PM CST PDMP [place] 12/16/22 10 days - Alprazolam 12/12/22 30 days Medication failed the protocol, provider to review and approve the medication order if appropriate. Requested Prescriptions Pending Prescriptions Disp Refills ALPRAZolam (XANAX) 1 MG Tablet [Pharmacy Med Name: ALPRAZOLAM 1MG TABLET] 60 Tablet 0 Sig: TAKE 1 TABLET BY MOUTH THREE (3) TIMES DAILY NEEDED FOR ANXIETY. 8.31 Not Delegated - Benzodiazepines Protocol Failed - 01/09/2023 11:42 AM Failed - This refill cannot be delegated Passed - Visit with relevant provider in past 12 months or upcoming 90 days Recent Visits Date Type Provider Dept 11/22/22 Office Visit Ángel Smith MD [facility] 08/02/22 Office Visit Ángel Smith MD [facility] 04/13/22 Office Visit Ángel Smith MD [facility] 01/12/22 Office Visit Ángel Smith MD [facility] [...] Delegated - Opioid Combinations Protocol Failed - 01/09/2023 11:42 AM Failed - This refill cannot be delegated Passed - Visit with relevant provider in past 12 months or upcoming 90 days Recent Visits Date Type Provider Dept 11/22/22 Office Visit Ángel Smith MD [facility] 08/02/22 Office Visit Ángel Smith MD [facility] 04/13/22 Office Visit Ángel Smith MD [facility] 01/12/22 Office Visit Á[facility] MD [facility] Showing recent visits within past 365 days and meeting all other requirements Future Appointments Date Type Provider Dept 02/23/23 Appointment Ángel Smith MD [facility] Showing future appointments within next 90 days and meeting all other requirements 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 documented in this encounter Plan of Treatment Upcoming Encounters Date Type Department Care Team (Late st Contact Info) Description 07/16/2024 7:15 AM CDT Office Visit [facility] - [place] [address] [place] [address] Ángel Smith MD #[address] [address] documented as of this encounter Visit Diagnoses Diagnosis Anxiety Anxiety state, unspecified Chronic midline low back pain without sciatica documented in this encounter Additional Health Concerns Assessment Noted Time PHQ-9 Depression Total Score: 0 12/31/19 21 11:20 AM AIRC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 documented as of this encounter Care Teams Watch Case Polisher Relationship Specialty Start Date End Date Ángel Smith MD [address] [address] PCP - General Family Medicine 06/07/16 Ovidio Callahan MD 4 [facility] [address] [place] [address] Consulting Physician Obstetrics & Gynecology 02/23/18 documented as of this encounter
--- OUTSIDE RECORDS SUMMARY | 2024-06-26 11:37 | XMS_ITS | Encounter Summary ---
Author Organization [facility] Address [address] [place] [address] Phone Care Team Providers Care Public Services Librarian Name Role Phone Ángel Smith MD Primary Care Provider Ovidio Callahan MD Unavailable [phone] Reason for Visit * Reason Comments Medication Refill Encounter Details Date Type Department Care Team (Late st Contact Info) Description 06/17/2022 Refill [facility] #2 [place] [address] Ángel Smith MD #[address] [address] Medication Refill Social History Tobacco Use Types [...] Telephone Encounter - Maite Padilla RN - 06/17/2022 3:30 PM CDT PDMP 05/31/22 - 10 days Medication failed the protocol, [...] Delegated - Opioid Combinations Protocol Failed - 06/17/2022 2:13 PM Failed - This refill cannot be delegated Passed - Visit with relevant provider in past 12 months or upcoming 90 days Recent Visits Date Type Provider Dept 04/13/22 Office Visit Ángel Smith MD [facility] 01/12/22 Office Visit Ángel Smith MD [facility] 10/13/21 Office Visit Ángel Smith MD [facility] 07/05/21 Office Visit Ángel Smith MD [facility] [place] Showing recent visits within past 365 days and meeting all other requirements Future Appointments Date Type Provider Dept 07/14/22 Appointment Ángel Smith MD [facility] Showing future appointments within next 90 days and meeting all other requirements documented in this encounter Plan of Treatment Upcoming Encounters Date Type Department Care Team (Late st Contact Info) Description 07/16/2024 7:15 AM CDT Office Visit [facility] - Family Medicine [facility] [address] [place] [address] Ángel Smith MD [address] [address] documented as of this encounter Visit Diagnoses Diagnosis Chronic midline low back pain without sciatica documented in this encounter Additional Health Concerns Assessment Noted Time PHQ-9 Depression Total Score: 0 12/31/19 21 11:20 AM SEPARATOR INSERTER documented as of this encounter Care Teams Public Services Librarian Relationship Specialty Start Date End Date Ángel Smith MD [address] [place] [address] PCP - General Family Medicine 06/07/16 Ovidio Callahan MD 4 [facility] [address] [place] [address] Consulting Physician Obstetrics & Gynecology 02/23/18 documented as of this encounter
--- OUTSIDE RECORDS SUMMARY | 2024-06-26 11:37 | XMS_ITS | Encounter Summary ---
Author Organization [facility] Address [address] [place] [address] Phone Care Team Providers Care Caul Fat Puller Name Role Phone Ángel Smith MD Primary Care Provider Ovidio Callahan MD Unavailable [phone] Reason for Visit * Reason Comments Medication Refill Encounter Details Date Type Department Care Team (Late st Contact Info) Description 08/17/2022 Refill [facility] #2 [place] [address] Ángel Smith MD #[address] [address] Medication Refill Social History Tobacco Use Types [...] suspected to have Coronavirus/COVID-19? No / Unsure 08/02/2022 1:55 PM CDT documented as of this encounter Miscellaneous Notes * Telephone Encounter - Maite Padilla RN - 08/18/2022 11:38 AM CDT PDMP 06/21/22, 07/20/22 Medication failed the protocol, provider to review and approve the medication order if appropriate. Requested Prescriptions Pending Prescriptions Disp Refills ALPRAZolam (XANAX) 1 MG Tablet [Pharmacy Med Name: ALPRAZOLAM 1MG TABLET] 60 Tablet 0 Sig: TAKE ONE (1) TABLET BY MOUTH THREE (3) TIMES DAILY NEEDED FOR ANXIETY. 6.7 Not Delegated - Benzodiazepines Protocol Failed - 08/17/2022 8:20 AM Failed - This refill cannot be delegated Passed - Visit with relevant provider in past 12 months or upcoming 90 days Recent Visits Date Type Provider Dept 08/02/22 Office Visit Á[facility]el [facility] MD [facility] 04/13/22 Office Visit Ángel Smith MD [facility] 01/12/22 Office Visit Ángel Smith MD [facility] 10/13/21 Office Visit Ángel Smith MD [facility] Showing recent visits within past 365 days and meeting all other requirements Future Appointments Date Type Provider Dept 11/02/22 Appointment Ángel Smith MD [facility] Showing future appointments within next 90 days and meeting all other requirements documented in this encounter Plan of Treatment Upcoming Encounters Date Type Department Care Team (Late st Contact Info) Description 07/16/2024 7:15 AM CDT Office Visit [facility] - Family Medicine - [place] [address] [place] [address] Ángel Smith MD [address] [address] documented as of this encounter Visit Diagnoses Diagnosis Anxiety Anxiety state, unspecified documented in this encounter Additional Health Concerns Assessment Noted Time PHQ-9 Depression Total Score: 0 12/31/19 21 11:20 AM 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
--- OUTSIDE RECORDS SUMMARY | 2024-06-26 11:37 | XMS_ITS | Clinical Summary ---
Author Organization [facility] Address [address] [place] [address] Care Team Providers Care Putty Worker Name Role Phone Ángel Smith MD Primary Care Provider [phone] Allergies Active Allergy Reactions Criticality Noted Date Comments Penicillins Medications propranolol (INDERAL) 20 mg tablet Take 20 mg by mouth 2 (two) times a day. Active no.80-msmf-KT-d fish (REGION MANAGER-PNV-DHA) 28 mg iron- 1 mg-200 mg capsule Take 1 tablet by mouth daily. 30 capsule 12 12/13/2017 Active valACYclovir (VALTREX) 1 gram tablet Take 1 tablet (1,000 mg total) by mouth 3 (three) times a day 21 tablet 05/28/2018 Active ALPRAZolam (XANAX) 1 mg tablet Take 1 tablet (1 mg total) by mouth 3 (three) times a day as needed for anxiety 12 tablet 07/19/2020 Active Active Problems Problem Noted Date Diagnosed Date Hypertension, essential 02/22/2018 Encounter for female sterilization procedure Overview (11/29/2017): Added automatically from request for surgery [id number] Resolved Problems Problem Noted Date Diagnosed Date Resolved Date No pathologic diagnosis 06/29/201302/13 Overview (05/19/2016): No diagnosis Immunizations Immunization Administration Dates Next Due DTaP 04/04/2015 Influenza, Quadrivalent, Spl it, Intramuscular 02/24/2016 Influenza, Quadrivalent, Spl it, Preservative Free, Intramuscular 12/03/2018,12/20/2017,12/16/2016 Influenza, Trivalent, Preser vative Free, Intramuscular 12/03/2018 Tdap 06/21/2015 Surgical History Surgery Date Site/Laterality Comments OTHER SURGICAL HISTORY 2005 : OTHER SURGICAL HISTORY 2015 : 2 hr labor Medical History Medical History Date Comments Hx Other Medical 2006 ; Outc ome: 39 week 8 lb(s) Male Hx Other Medical ; Outc ome: 39W0D week 6lb(s) 10 oz Female 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 Hypertension Anxiety Family History Medical History Relation Name Comments Hypertension Father Hypertension; Heart disease Mother Heart disease; Hyperlipidemia Mother Hyperlipidemi a; Hypertension Mother Hypertension; Other Mother stomach/gallbla dder; Relation Name Status Comments Father Mother Social History Tobacco Use Types Packs/Day Years Used Date Smoking Tobacco: Every Day Cigarettes Smokeless Tobacco: Never Tobacco Cessation:Ready to Q uit: No; Counseling Given: Yes Comments:Smoking History Packs/day: 1 Packs Alcohol Use Standard Drinks/Week Comments No 0 (1 standard drink = 0.6 oz pur e alcohol) PHQ-2 Answer Date Recorded PHQ-2 Score 0 10/06/2018 Personal Safety Answer Date Recorded Getting School Help Needed Not on file 04/14 Comments No Sex and Gender Information Value Date Recorded Sex Assigned at Not on file 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 Gender Identity Not on file Sexual Orientation Not on file Obstetrics History Para Term AB IAB SAB Ectopic Multiple Livin g Live Births 4 2 2 2 2 2 2 Date Outcome GA Total Labor Labor/2nd/3rd Weight Sex Type Anes PTL Khushi A1 A5 Name Clin SAB SAB 2005 Term 39w 0d 3.629 kg (8 lb) M Vag-S pont N Living Complications:None 2015 Term 39w 0d 3.005 kg (6 lb 10 oz) F Vag-S pont N Living Complications:None Last Filed Vital Signs Vital Sign Reading Time Taken Comments Blood Pressure 151/106 07/20/2020 12:59 AM CDT Pulse 70 07/19/2020 11:30 PM CDT Temperature 36.3 C (97.3 F) 07/19/2020 10:30 PM CDT Respiratory Rate 18 07/20/2020 12:59 AM CDT Oxygen Saturation 98% 07/19/2020 10:30 PM CDT Inhaled Oxygen Concentration - - Weight 64.9 kg (143 lb) 07/19/2020 10:30 PM CDT Height 160 cm (5' 3 ) 07/19/2020 10:30 PM CDT Body Mass Index 25.33 07/19/2020 10:30 PM CDT Plan of Treatment Not on file Insurance [facility] Care Teams Putty Worker Relationship Specialty Start Date End Date Ángel Smith MD 2 [facility] [address] [address] [facility] - General 08/08/17
--- OUTSIDE RECORDS SUMMARY | 2024-06-26 11:37 | XMS_ITS | Encounter Summary ---
Author Organization [facility] Address [address] [place] [address] Phone Care Team Providers Care Bill Checker Name Role Phone Ángel Smith MD Primary Care Provider Ovidio Callahan MD Unavailable [phone] Reason for Visit * Reason Comments Medication Refill Encounter Details Date Type Department Care Team (Late st Contact Info) Description 10/10/2022 Refill [facility] - [place] #2 [place] [address] Eboni Bonilla APRN, ELECTRONICS PARTS SALES REPRESENTATIVE #[address] [address] Medication Refill Social History Tobacco [...] Telephone Encounter - Maite Padilla RN - 10/10/2022 2:05 PM CDT PDMP 09/08/22 - 20 days Medication failed the protocol, provider to review and approve the medication order if appropriate. Requested Prescriptions Pending Prescriptions Disp Refills ALPRAZolam (XANAX) 1 MG Tablet [Pharmacy Med Name: ALPRAZOLAM 1MG TABLET] 60 Tablet 0 Sig: Take 1 Tablet by mouth 3 times daily as needed for Anxiety. Not Delegated - Benzodiazepines Protocol Failed - 10/10/2022 9:14 AM Failed - This refill cannot be delegated Passed - Visit with relevant provider in past 12 months or upcoming 90 days Recent Visits Date Type Provider Dept 08/02/22 Office Visit Ángel Smith MD [facility] 04/13/22 Office Visit Ángel Smith MD [facility] 01/12/22 Office Visit Ángel Smith MD [facility] 10/13/21 Office Visit Ángel Smith MD [facility] Showing recent visits within past 365 days and meeting all other requirements Future Appointments Date Type Provider Dept 11/02/22 Appointment Ángel [facility] MD [facility] Showing future appointments within next 90 days and meeting all other requirements documented in this encounter Plan of Treatment Upcoming Encounters Date Type Department Care Team (Late st Contact Info) Description 07/16/2024 7:15 AM CDT Office Visit [facility] Group - Family Medicine - [place] [address] [place] [address] Ángel Smith MD [address] [address] documented as of this encounter Visit Diagnoses Diagnosis Anxiety Anxiety state, unspecified documented in this encounter Additional Health Concerns Assessment Noted Time PHQ-9 Depression Total Score: 0 12/31/19 21 11:20 AM PENCILS WASHER documented as of this encounter Care Teams Bill Checker Relationship Specialty Start Date End Date Ángel Smith MD #2 [facility] [address] [place] [address] PCP - General Family Medicine 06/07/16 Ovidio Callahan MD 4 [facility] [address] [place] [address] Consulting Physician Obstetrics & Gynecology 02/23/18 documented as of this encounter
--- OUTSIDE RECORDS SUMMARY | 2024-06-26 11:37 | XMS_ITS | Encounter Summary ---
Author Organization [facility] Address [address] [place] [address] Phone Care Team Providers Care Gravity Flow Irrigator Name Role Phone Ángel Smith MD Primary Care Provider Ovidio Callahan MD Unavailable [phone] Reason for Visit * Reason Comments Medication Refill Encounter Details Date Type Department Care Team (Late st Contact Info) Description 04/06/2022 Refill [facility] #2 [place] [address] Ángel Smith MD #[address] [address] Medication Refill Social History Tobacco Use Types [...] Telephone Encounter - Maite Padilla RN - 04/07/2022 8:51 AM CST Name from pharmacy: LOSARTAN POTASSIUM 50MG TABLET Will file in chart as: losartan (COZAAR) 50 MG Tablet The original prescription was discontinued on 01/12/2022 by Ángel Smith MD Dose increased NE MACHINIST documented in this encounter Plan of Treatment Upcoming Encounters Date Type Department Care Team (Late st Contact Info) Description 07/16/2024 7:15 AM CDT Office Visit [facility] #2 [place] [address] Ángel Smith MD #[address] [address] documented as of this encounter Visit Diagnoses Not on filedocumented in this encounter Additional Health Concerns Assessment Noted Time PHQ-9 Depression Total Score: 0 12/31/19 21 11:20 AM MARINE MACHINIST documented as of this encounter Care Teams Gravity Flow Irrigator Relationship Specialty Start Date End Date Ángel Smith MD #[address] [address] PCP - General Family Medicine 06/07/16 Ovidio Callahan MD 4 [facility] [address] [place] [address] Consulting Physician Obstetrics & Gynecology 02/23/18 documented as of this encounter
--- OUTSIDE RECORDS SUMMARY | 2024-06-26 11:37 | XMS_ITS | Encounter Summary ---
Author Organization [facility] Address [address] [place] [address] Phone Care Team Providers Care Paint Stock Clerk Name Role Phone Ángel Smith MD Primary Care Provider Ovidio Callahan MD Unavailable [phone] Reason for Visit * Reason Comments Medication Refill Encounter Details Date Type Department Care Team (Late st Contact Info) Description 05/09/2022 Refill [facility] #2 [place] [address] Ángel Smith MD #[address] [address] Medication Refill Social History Tobacco Use Types [...] suspected to have Coronavirus/COVID-19? No / Unsure 04/13/2022 10:51 AM GREY GOODS MARKER documented as of this encounter Miscellaneous Notes * Telephone Encounter - Maite Padilla RN - 05/09/2022 2:04 PM CDT PDMP 04/21/22 - 20 days Medication failed the protocol, provider to review and approve the medication order if appropriate. Requested Prescriptions Pending Prescriptions Disp Refills ALPRAZolam (XANAX) 1 MG Tablet [Pharmacy Med Name: ALPRAZOLAM 1MG TABLET] 60 Tablet 0 Sig: TAKE ONE (1) TABLET BY MOUTH THREE (3) TIMES DAILY NEEDED FOR ANXIETY. Not Delegated - Benzodiazepines Protocol Failed - 05/09/2022 9:34 AM Failed - This refill cannot be delegated Passed - Visit with relevant provider in past 12 months or upcoming 90 days Recent Visits Date Type Provider Dept 04/13/22 Office Visit Ángel Smith MD [facility] 01/12/22 Office Visit Ángel Smith MD [facility] 10/13/21 Office Visit Ángel Smith MD [facility] 07/05/21 Office Visit Ángel Smith MD [facility] Showing recent visits within past 365 days and meeting all other requirements Future Appointments Date Type Provider Dept 07/14/22 Appointment Ángel Smith MD [facility] Showing future appointments within next 90 days and meeting all other requirements documented in this encounter Plan of Treatment Upcoming Encounters Date Type Department Care Team (Late st Contact Info) Description 07/16/2024 7:15 AM CDT Office Visit [facility] - [place] [address] [place] [address] Ángel Smith MD [address] [address] documented as of this encounter Visit Diagnoses Diagnosis Anxiety Anxiety state, unspecified documented in this encounter Additional Health Concerns Assessment Noted Time PHQ-9 Depression Total Score: 0 12/31/19 21 11:20 AM GREY GOODS MARKER documented as of this encounter Care Teams Paint Stock Clerk Relationship Specialty Start Date End Date Ángel Smith MD #2 [facility] [address] [place] [address] PCP - General Family Medicine 06/07/16 Ovidio Callahan MD 4 [facility] [address] [place] [address] Consulting Physician Obstetrics & Gynecology 02/23/18 documented as of this encounter
--- OUTSIDE RECORDS SUMMARY | 2024-06-26 11:37 | XMS_ITS | Encounter Summary ---
Author Organization [facility] Address [address] [place] [address] Phone Care Team Providers Care Discharge Specialist Name Role Phone Ángel Smith MD Primary Care Provider [phone] Ovidio Callahan MD Unavailable [phone] Reason for Visit * Reason Comments Medication Refill Encounter Details Date Type Department Care Team (Late st Contact Info) Description 05/20/2022 Refill [facility] #2 [place] [address] Ángel Smith MD #[address] [address] Medication Refill Social History Tobacco Use Types [...] Telephone Encounter - Maite Padilla RN - 05/20/2022 12:30 PM CDT PDMP Alprazolam 04/21/22 20 days - [place] 04/30/22 10 days Medication failed the protocol, provider to review and approve the medication order if appropriate. Requested Prescriptions Pending Prescriptions Disp Refills ALPRAZolam (XANAX) 1 MG Tablet [Pharmacy Med Name: ALPRAZOLAM 1MG TABLET] 60 Tablet 0 Sig: TAKE ONE (1) TABLET BY MOUTH THREE (3) TIMES DAILY NEEDED FOR ANXIETY. Not Delegated - Benzodiazepines Protocol Failed - 05/20/2022 11:47 AM Failed - This refill cannot be delegated Passed - Visit with relevant provider in past 12 months or upcoming 90 days Recent Visits Date Type Provider Dept 04/13/22 Office Visit Ángel Smith MD [facility] 01/12/22 Office Visit Ángel Smith MD [facility] 10/13/21 Office Visit Ángel Smith MD [facility] 07/05/21 Office Visit Ángel Smith MD [facility] Showing recent visits within past 365 days and meeting all other requirements Future Appointments Date Type Provider Dept 07/14/22 Appointment Ángel Smith MD [facility] Showing future appointments within next 90 days and meeting all other requirements HYDROcodone-acetaminophen (NORCO) 5-325 MG Tablet [Pharmacy Med Name: HYDROCODONE BITARTRATE/ACETAMINOPHEN 5-325MG TABLET] 60 Tablet 0 Sig: TAKE ONE (1) TO TWO (2) TABLETS BY MOUTH EVERY 8 HOURS NEEDED FOR MODERATE OR MORE SEVERE PAIN. Not Delegated - Opioid Combinations Protocol Failed - 05/20/2022 11:47 AM Failed - This refill cannot be delegated Passed - Visit with relevant provider in past 12 months or upcoming 90 days Recent Visits Date Type Provider Dept 04/13/22 Office Visit Ángel Smith MD [facility] 01/12/22 Office Visit Ángel Smith MD [facility] 10/13/21 Office Visit Ángel Smith MD [facility] 07/05/21 Office Visit Ángel Smith MD [facility] Showing recent visits within past 365 days and meeting all other requirements Future Appointments Date Type Provider Dept 06/01/23 Appointment Ángel Smith MD [facility] Showing future appointments within next 90 days and meeting all other requirements documented in this encounter Plan of Treatment Upcoming Encounters Date Type Department Care Team (Late st Contact Info) Description 07/16/2024 7:15 AM CDT Office Visit [facility] - Family [facility] [address] [place] [address] Ángel Smith MD #[address] [facility] [address] [place] [address] documented as of this encounter Visit Diagnoses Diagnosis Anxiety Anxiety state, unspecified Chronic midline low back pain without sciatica documented in this encounter Additional Health Concerns Assessment Noted Time PHQ-9 Depression Total Score: 0 12/31/19 21 11:20 AM TALENT DEVELOPMENT COORDINATOR documented as of this encounter Care Teams Discharge Specialist Relationship Specialty Start Date End Date Ángel Smith MD #[address] [facility] [address] [place] [address] PCP - General Family Medicine 06/07/16 Ovidio Callahan MD 4 [facility] [address] [place] [address] Consulting Physician Obstetrics & Gynecology 02/23/18 documented as of this encounter
--- OUTSIDE RECORDS SUMMARY | 2024-06-26 11:37 | XMS_ITS | Encounter Summary ---
Author Organization [facility] Address [address] [place] [address] Phone Care Team Providers Care Stretcher Leveler Operator Helper Name Role Phone Ángel Smith MD Primary Care Provider [phone] Ovidio Callahan MD Unavailable [phone] Reason for Visit * Reason Comments Medication Refill Encounter Details Date Type Department Care Team (Late st Contact Info) Description 08/19/2022 Refill [facility] #2 [place] [address] Ángel Smith MD #[address] [address] Medication Refill Social History Tobacco Use Types [...] Telephone Encounter - Maite Padilla RN - 08/19/2022 1:20 PM CDT PDMP 07/22/22 - 10-20 days Medication failed the protocol, provider to [...] Delegated - Opioid Combinations Protocol Failed - 08/19/2022 7:48 AM Failed - This refill cannot be delegated Passed - Visit with relevant provider in past 12 months or upcoming 90 days Recent Visits Date Type Provider Dept 08/02/22 [facility] 04/13/22 Office Visit Ángel Smith MD [facility] 01/12/22 Office Visit Ángel Smith MD [facility] 10/13/21 Office Visit Ángel Smith MD [facility] Showing recent visits within past 365 days and meeting all other requirements Future Appointments Date Type Provider Dept 11/02/22 Appointment Ángel Smith MD [facility] Showing future appointments within next 90 days and meeting all other requirements documented in this encounter Plan of Treatment Upcoming Encounters Date Type Department Care Team (Late st Contact Info) Description 07/16/2024 7:15 AM CDT Office Visit [facility] - Family Medicine - [place] [address] [place] [address] Ángel Smith MD [address] [address] documented as of this encounter Visit Diagnoses Diagnosis Chronic midline low back pain without sciatica documented in this encounter Additional Health Concerns Assessment Noted Time PHQ-9 Depression Total Score: 0 12/31/19 21 11:20 AM EARLY BREASTFEEDING CARE SPECIALIST documented as of this encounter Care Teams Stretcher Leveler Operator Helper Relationship Specialty Start Date End Date Ángel Smith MD #2 [facility] [address] [place] [address] PCP - General Family Medicine 06/07/16 Ovidio Callahan MD [address] [facility] [address] [place] [place] [address] Consulting Physician Obstetrics & Gynecology 02/23/18 documented as of this encounter
--- OUTSIDE RECORDS SUMMARY | 2024-06-26 11:37 | XMS_ITS | Encounter Summary ---
Author Organization [facility] Address [address] [place] [address] Phone Care Team Providers Care Thread Tool Grinder Set Up Operator Name Role Phone Ángel Smith MD Primary Care Provider Ovidio Callahan MD Unavailable [phone] Reason for Visit * Reason Comments Medication Refill Encounter Details Date Type Department Care Team (Late st Contact Info) Description 09/06/2022 Refill [facility] #2 [place] [address] Ángel Smith MD #[address] [address] Medication Refill Social History Tobacco Use Types [...] Encounter - Eboni Bonilla APRN, CNP - 09/06/2022 10:41 PM CDT [place] OUT[place]ARD MOTORS EXPERIMENTAL MECHANIC and UDS compliant approved * Telephone Encounter - Maite Padilla RN - 09/06/2022 11:11 AM CDT PDMP 08/19/22 - 20 days Medication failed the protocol, provider to review and approve the medication order if appropriate. Requested Prescriptions Pending Prescriptions Disp Refills ALPRAZolam (XANAX) 1 MG Tablet [Pharmacy Med Name: ALPRAZOLAM 1MG TABLET] 60 Tablet 0 Sig: TAKE ONE (1) TABLET BY MOUTH THREE (3) TIMES DAILY NEEDED FOR ANXIETY. 6.7 Not Delegated - Benzodiazepines Protocol Failed - 09/06/2022 8:37 AM Failed - This refill cannot be delegated Passed - Visit with relevant provider in past 12 months or upcoming 90 days Recent Visits Date Type Provider Dept 08/02/22 Office Visit Ángel Smith MD [facility] 04/13/22 Office Visit Ángel Smith MD [facility] 01/12/22 Office Visit Ángel Smith MD [facility] 10/13/21 Office Visit [facility] Showing recent visits within past 365 days and meeting all other requirements Future Appointments Date Type Provider Dept 11/02/22 Appointment Ángel Smith MD [facility] Showing future appointments within next 90 days and meeting all other requirements documented in this encounter Plan of Treatment Upcoming Encounters Date Type Department Care Team (Late st Contact Info) Description 07/16/2024 7:15 AM CDT Office Visit [facility] - Family Medicine - [place] [address] [place] [address] Ángel Smith MD #[address] [place] [address] [place] [address] documented as of this encounter Visit Diagnoses Diagnosis Anxiety Anxiety state, unspecified documented in this encounter Additional Health Concerns Assessment Noted Time PHQ-9 Depression Total Score: 0 12/31/19 21 11:20 AM DELINQUENCY PREVENTION OFFICER documented as of this encounter Care Teams Thread Tool Grinder Set Up Operator Relationship Specialty Start Date End Date Ángel Smith MD #[address] [place] [address] PCP - General Family Medicine 06/07/16 Ovidio Callahan MD 4 [facility] [address] [place] [address] Consulting Physician Obstetrics & Gynecology 02/23/18 documented as of this encounter
--- OUTSIDE RECORDS SUMMARY | 2024-06-26 11:37 | XMS_ITS | Encounter Summary ---
Author Organization [facility] Address [address] [place] [address] Phone Care Team Providers Care Neurosurgeon Name Role Phone Ángel Smith MD Primary Care Provider [phone] Ovidio Callahan MD Unavailable [phone] Reason for Visit * Reason Comments Medication Refill alprazolam Encounter Details Date Type Department Care Team (Late st Contact Info) Description 12/10/2019 Refill [facility] #2 [place] [address] Ángel Smith MD #[address] [address] Medication Refill (alprazolam) Social History Tobacco Use Types Packs/Day Years [...] Telephone Encounter - Ángel Smith MD - 12/12/2019 7:28 AM CDT Prescription pending signature * Telephone Encounter - Serenity Michel RN - 12/11/2019 12:18 PM CDT PAOLA: 10-14-2019 for anxiety, HTN, low back pain Next OV: none documented in this encounter Plan of Treatment Upcoming Encounters Date Type Department Care Team (Late st Contact Info) Description 07/16/2024 7:15 AM CDT Office Visit [facility] - Family Medicine - [place] #2 [place] [address] Ángel Smith MD #[address] [address] documented as of this encounter Visit Diagnoses Not on filedocumented in this encounter Additional Health Concerns Assessment Noted Time PHQ-9 Depression Total Score: 0 06/01/19 19 2:00 PM CDT documented as of this encounter Care Teams Neurosurgeon Relationship Specialty Start Date End Date Ángel Smith MD #[address] [address] PCP - General Family Medicine 06/07/16 Ovidio Callahan MD [address] [place] [address] [facility] [address] [place] [address] Consulting Physician Obstetrics & Gynecology 02/23/18 documented as of this encounter
--- OUTSIDE RECORDS SUMMARY | 2024-06-26 11:37 | XMS_ITS | Clinical Summary ---
Author Organization [facility] Address [address] [address] Phone Care Team Providers Care Loan Examiner Name Role Phone Ángel Smith MD Primary Care Provider [phone] Ovidio Callahan MD Unavailable Allergies Active Allergy Reactions Criticality Noted Date Comments Penicillins Rash 06/07/2016 Medications dorzolamide-ti molol (COSOPT) 22.3-6.8 MG/ML Solution Place 1 Drop in affected eye(s) 2 times daily. Active Aspirin 81 MG Tablet Take 81 mg by mouth daily. Active Acetaminophen (TYLENOL PO) Take by mouth as needed. Active Multiple Vitamins-Garden als (MULTIVITAMIN PO) Take by mouth daily. Active ergocalciferol (VITAMIN D) 91484 UNIT Capsule TAKE ONE (1) CAP BY MOUTH EVERY 30 DAYS. 3 Capsule 2 4 Active ALPRAZolam (XANAX) 1 MG TabletIndicati ons:Anxiety TAKE 1 TABLET BY MOUTH TWO (2) TIMES DAILY NEEDED FOR ANXIETY 60 Tablet 5 Active HYDROcodone-ac etaminophen (NORCO) 5-325 MG TabletIndicati ons:Chronic midline low back pain without sciatica TAKE 1 TABLET BY MOUTH EVERY 8 HOURS NEEDED FOR MODERATE OR MORE SEVERE PAIN. 30 Tablet 5 Active ALPRAZolam (XANAX) 1 MG TabletIndicati ons:Anxiety TAKE 1 TABLET BY MOUTH TWO (2) TIMES DAILY NEEDED FOR ANXIETY. 2.28 60 Tablet 5 025 Discontinued HYDROcodone-ac etaminophen (NORCO) 5-325 MG TabletIndicati ons:Chronic midline low back pain without sciatica Take 1 Tablet by mouth every 8 hours as needed for Moderate or more severe pain. 30 Tablet 5 025 Discontinued Active Problems Problem Noted Date Diagnosed Date HTN (hypertension) 02/23/2018 Chronic pain of both knees 02/23/2018 Heterozygous factor V Leiden mutation 11/01/2017 Retinal artery branch occlusion of right eye Vitamin D deficiency 07/21/2017 Arthralgia of both hands 07/21/2017 Paresthesias 12/20/2016 Physical exam, annual (Adult) 06/07/2016 Chronic midline low back pain without sciatica 0 06/07/2016 Tobacco abuse 06/07/2016 Anxiety 06/07/2016 Encounters Date Type Department Care Team Description [facility]/21[facility]24 [facility] [address] [place] [address] Ángel Smith MD Advice Only 06/10/2024 Refill [facility] [address] [place] [address] Ángel Smith MD Medication Refill 06/08/2024 Refill [facility] [address]2 [place] [address] Ángel Smith MD Medication Refill 05/28/2024 Refill [facility] [address]2 [place] [address] Ángel Smith MD Medication Refill 05/17/2024 [facility] [address] [place] [address] Ángel Smith MD Care Management 05/16/2024 1:30 PM CDT - 05/16/2024 11:59 PM CDT [facility] [address] [place] [address] Ángel Smith MD Discharge Disposition: Discharged to home or Selfcare 05/16/2024 Travel 05/09/2024 Refill [facility] [address] [place] [address] Ángel Smith MD Medication Refill 04/30/2024 Telephone [facility] [address] [place] [address] Ángel Smith MD Results 04/30/2024 Results Follow-Up [facility] [address]2 [place] [address] Ángel Smith MD EKG 12 LEAD 04/26/2024 11:25 AM CDT - 04/26/2024 11:59 PM CDT Hospital Encounter [facility]iology Services [address] [place] [address] Ángel Smith MD Discharge Disposition: Discharged to home or Selfcare 04/26/2024 10:45 AM CDT Office Visit [facility] [address] [place] [address] Ángel Smith MD Palpitations (Primary Dx); Anxiety Discharge Disposition: Discharged to home or Selfcare 04/26/2024 Results Follow-Up [facility] [address] [place] [address] Ángel Smith MD THYROID STIMULATING HORMONE (TSH), CMP (COMPREHENSIVE METABOLIC PANEL), CBC WITH AUTO DIFFERENTIAL 04/26/2024 Travel 04/25/2024 Nurse Triage [facility] Call Center [address] [place] [phone] Ángel Smith MD Leg Swelling 04/11/2024 Refill [facility] [address]2 [place] [address] Ángel Smith MD Medication Refill from Last 3 Months Immunizations Immunization Administration Dates Next Due DTAP VACCINE 04/04/2015 Influenza Vaccine 12/03/2018 Influenza Vaccine, Quadrivalent, PF 12/03/2018,1 02/19/2017,12/16/2016 Influenza, Injectable, Quadrivalent 02/24/2016 TDAP Vaccine 06/21/2015 Family History Medical History Relation Name Comments Diabetes Father Hypertension Father Rheumatoid Arthritis Father Cancer Mother COLON Diabetes Mother Heart Attack Mother Hypertension Mother Relation Name Status Comments Father Alive Mother Alive Social History Tobacco Use Types Packs/Day Years Used Date Smoking Tobacco: Light Smoker Cigarettes 0.3 15 Smokeless Tobacco: Never Tobacco Cessation:Ready to Q uit: No; Counseling Given: No Comments:Smoked for 15 years on and off;about 3 a day Alcohol Use Standard Drinks/Week Comments Not Currently 0 (1 standard drink = 0.6 oz pur e alcohol) wine here and there [employer] Answer Date Recorded In the past 12 months has [employer], gas, oil, or water [employer] threatened to shut off services in your home? Yes 04/26/2024 Social Connection and Isolat ion Panel [NHANES] Answer Date Recorded In a typical week, how many times do you talk on the phone with family, friends, or neighbors? Never 04/26/2024 How often do you get togethe r with friends or relatives? Never 04/26/2024 How often do you attend chur ch or denominational services? More than 4 times per year 04/26/2024 Do you belong to any clubs o r organizations such as moravian groups, unions, fraternal or athletic groups, or [...] Total Score - Questions 1-9 0 04/13 [facility] - Occupational Stress Questionnaire Answer Date Recorded [...] any time in the past 12 m [facility], were you homeless or living [...] on file Sexual Orientation Not on file Last Filed Vital Signs Vital Sign Reading Time Taken Comments Blood Pressure 116/74 04/26/2024 10:45 AM CDT Pulse 92 04/26/2024 10:45 AM CDT Temperature 36.1 C (97 F) 04/26/2024 10:45 AM CDT Respiratory Rate 16 04/26/2024 10:45 AM CDT Oxygen Saturation 97% 04/26/2024 10:45 AM CDT Inhaled Oxygen Concentration - - Weight 69.1 kg (152 lb 4.8 oz) 04/26/2024 10:45 AM CDT Height 160 cm (5' 3 ) 04/26/2024 10:45 AM CDT Body Mass Index 26.98 04/26/2024 10:45 AM CDT Plan of Treatment Upcoming Encounters Date Type Department Care Team (Late st Contact Info) Description 07/16/2024 7:15 AM CDT [facility] Visit [facility]2 [place] [address] Ángel Smith MD #[address] [address] Health Maintenance Due Date Last Done Comments Hepatitis C Virus (HCV) Screening 1980 Mammogram 1980 Hepatitis B Immunization (1 of 3 - 19+ 3-dose series) 02/10/1999 Pneumococcal Immunization Combined (1 of 2 - PCV) 02/10/1999 HPV/Cotest 02/10/2010 Discussion re Starting/Frequency of Mammograms 2020 Cervical Cancer Screening (CCS) 03/26/2022 Pap Smear 03/26/2022 03/26/2019 SARS-COV-2 Immunization ( - season) 2023 Influenza Immunization (Season Ended) 2024 12/03/2018, 12/03/2018, 12/20/2017, Additional history exists Td Immunization Every 10 Years (Adults With 1 Tdap) 06/20/2025 06/21/2015 Respiratory Syncytial Virus (RSV) Immunization (Adult) (1 - 1-dose 75+ series) 02/10/2055 Human Papillomavirus (HPV) Immunization Aged Out No longer eligible based on patient's age to complete this topic Meningococcal Immunization (ACWY) Aged Out No longer eligible based on patient's age to complete this topic Rotavirus Immunization Aged Out No lo nger eligible based on patient's age to complete this topic Procedures Procedure Name Priority Date/Time Associated Diagnosis Comments EKG 12 LEAD Routine 04/26/2024 11:29 AM CDT Palpitations CBC WITH AUTO DIFFERENTIAL Today 04/26/2024 11:25 AM CDT Palpitations CMP (COMPREHENSIVE METABOLIC PANEL) Today 04/26/2024 11:25 AM CDT Palpitations COMPLETE BLOOD COUNT (CBC) WITH DIFF Today 04/26/2024 11:25 AM CDT Palpitations THYROID STIMULATING HORMONE (TSH) Today 04/26/2024 11:25 AM CDT Palpitations from Last 3 Months Results * EKG 12 LEAD (04/26/2024 11:29 AM CDT) Ventricular Rate 72 BPM EXTERNAL EKG Atrial Rate 72 BPM EXTERNAL EKG P-R Interval 130 ms EXTERNAL EKG QRS Duration 84 ms EXTERNAL EKG Q-T Duration 376 ms EXTERNAL EKG QTC CALCULATION 411 ms EXTERNAL EKG P [place] 64 degrees EXTERNAL EKG R [place] 76 degrees EXTERNAL EKG T [place] 56 degrees EXTERNAL EKG 04/26/2024 11:2 9 AM CDT Impressions EXTERNAL EKG - 04/29/2024 10:31 PM CDT Normal sinus rhythm Possible Left atrial enlargement Borderline ECG No previous ECGs available Confirmed by Alicia Kothari ([id number]) on 04/29/2024 10:31:24 PM Narrative Procedure Note Alicia Kothari DO - 04/29/2024 IMPRESSION: Normal sinus rhythm Possible Left atrial enlargement Borderline ECG No previous ECGs available Confirmed by Alicia Kothari ([id number]) on 04/29/2024 10:31:24 PM us Ángel Smith MD IMG ECG ORDERABLES Final Resu lt EXTERNAL EKG * (ABNORMAL) CBC WITH AUTO DIFFERENTIAL (04/26/2024 11:25 AM CDT) WBC 10.34 4.00 - 12.00 10(3)/mcL 04/26/2024 12:33 PM CDT [facility] RBC 4.68 3.80 - 5.30 10(6)/mcL 04/26/2024 12:33 PM CDT [facility] HEMOGLOBIN (HGB) 14.3 12.0 - 15.8 g/dL 04/26/2024 12:33 PM CDT [facility] HEMATOCRIT (HCT) 44.4 36.0 - 47.0 % 04/26/2024 12:33 PM CDT [facility] MCV 94.9 82.0 - 96.0 fL 04/26/2024 12:33 PM CDT [facility] MCH 30.6 26.0 - 34.0 pg 04/26/2024 12:33 PM CDT [facility] MCHC 32.2 31.0 - 36.0 g/dL 04/26/2024 12:33 PM CDT [facility] PLATELET COUNT 255 140 - 440 10(3)/mcL 04/26/2024 12:33 PM CDT [facility] RDW 12.2 11.8 - 15.5 % 04/26/2024 12:33 PM CDT [facility] MPV 9.1(L) 9.7 - 12.4 fL 04/26/2024 12:33 PM CDT [facility] NEUTROPHILS 53.8 47.0 - 73.0 % 04/26/2024 12:33 PM CDT [facility] LYMPHOCYTES 32.8 18.0 - 42.0 % 04/26/2024 12:33 PM CDT [facility] MONOCYTES 11.2 4.0 - 12.0 % 04/26/2024 12:33 PM CDT [facility] EOSINOPHILS 1.6 0.0 - 5.0 % 04/26/2024 12:33 PM CDT [facility] BASOPHILS 0.6 0.0 - 1.0 % 04/26/2024 12:33 PM CDT [facility] ABSOLUTE NEUTROPHILS 5.56 1.60 - 7.70 10(3)/[facility] 04/26/2024 12:33 PM CDT [facility] ABSOLUTE LYMPHOCYTES 3.39(H) 1.30 - 3.20 10(3)/[facility] 04/26/2024 12:33 PM CDT [facility] ABSOLUTE MONOCYTES 1.16(H) 0.20 - 1.00 10(3)/[facility] 04/26/2024 12:33 PM CDT [facility] ABSOLUTE EOSINOPHIL 0.17 0.00 - 0.40 10(3)/[facility] 04/26/2024 12:33 PM CDT [facility] ABSOLUTE BASOPHILS 0.06 0.00 - 0.10 10(3)/[facility] 04/26/2024 12:33 PM CDT [facility] NRBC PER 100 WBC 0 04/27/19 12:33 PM CDT [facility] Blood Venipuncture / Unknown 04/26/2024 11:25 AM CDT 04/26/2024 12:28 PM CDT Ángel Smith MD HEMATOLOGY ORDERABLES Final R esult [facility] #1 [place] [address] * THYROID STIMULATING HORMONE (TSH) (04/26/2024 11:25 AM CDT) TSH 1.095 0.300 - 5.000 mIU/L 04/26/2024 1:12 PM CDT [facility] Blood Venipuncture / Unknown 04/26/2024 11:25 AM CDT 04/26/2024 12:28 PM CDT us Ángel Smith MD CHEMISTRY ORDERABLES Final Re sult [facility] [address] [place] [address] * (ABNORMAL) CMP (COMPREHENSIVE METABOLIC PANEL) (04/26/2024 11:25 AM CDT) SODIUM 138 136 - 145 mmol/L 04/26/2024 12:59 PM CDT [facility] POTASSIUM 4.2 3.5 - 5.1 mmol/L 04/26/2024 12:59 PM CDT [facility] CHLORIDE 104 98 - 107 mmol/L 04/26/2024 12:59 PM CDT [facility] CO2, VENOUS 25 22 - 30 mmol/L 04/26/2024 12:59 PM CDT [facility] ANION GAP 13.2 <18.0 mmol/L 04/26/2024 12:59 PM CDT [facility] GLUCOSE 94 70 - 99 mg/dL 04/26/2024 12:59 PM CDT [facility] BUN 6 5 - 18 mg/dL 04/26/2024 12:59 PM CDT [facility] CREATININE, BLOOD 0.78 0.60 - 1.00 mg/dL 04/26/2024 12:59 PM CDT [facility] BUN/CREATININE RATIO 8(L) 12 - 20 ratio 04/26/2024 12:59 PM CDT [facility] TOTAL PROTEIN 6.4 6.0 - 8.0 g/dL 04/26/2024 12:59 PM CDT [facility] ALBUMIN 3.7 3.5 - 5.0 g/dL 04/26/2024 12:59 PM CDT [facility] A/G RATIO 1.4 1.0 - 2.2 04/26/2024 12:59 PM CDT [facility] CALCIUM 8.7 8.7 - 10.5 mg/dL 04/26/2024 12:59 PM CDT [facility] T BILI 0.4 0.2 - 1.2 mg/dL 04/26/2024 12:59 PM CDT [facility] SGOT (AST) 24 <43 U/L 04/26/2024 12:59 PM CDT [facility] SGPT (ALT) 17 <56 U/L 04/26/2024 12:59 PM CDT [facility] ALKALINE PHOSPHATASE 82 40 - 150 U/L 04/26/2024 12:59 PM CDT [facility] IS THE PATIENT REQUIRED TO BE FASTING? No 04/26/2024 12:59 PM CDT [facility] GFR, ESTIMATED >60 >=60 04/26/2024 12:59 PM CDT [facility] Comment: Creatinine Clearance is the preferred criteria for selecting drug dose adjustments in renally impaired patients. The GFR is provided as additional pertinent clinical information. GFR is reported in mL/min/1.73 sq m. Calculation based on the Chronic Kidney Disease Epidemiology Collaboration (CKD- EPI) equation refit without adjustment for race. GFR, EST. >60 >=60 025 12:59 PM CDT [facility] GFR, EST. NONAFRICAN >60 >=60 04/26/2024 12:59 PM CDT [facility] Blood Venipuncture / Unknown 04/26/2024 11:25 AM CDT 04/26/2024 12:28 PM CDT Ángel Smith MD CHEMISTRY ORDERABLES Final Re sult [facility] #[address] [place] [address] from Last 3 Months Insurance [employer] Care Teams Loan Examiner Relationship Specialty Start Date End Date Ángel Smith MD #2 [facility] [address] [place] [address] PCP - General Family Medicine 06/07/16 Ovidio Callahan MD [address] [facility] [address] [place] [address] Consulting Physician Obstetrics & Gynecology 02/23/18
--- OUTSIDE RECORDS SUMMARY | 2024-06-26 11:37 | XMS_ITS | Encounter Summary ---
Author Organization [facility] Address [address] [place] [address] Phone Care Team Providers Care Infrastructure Engineer Name Role Phone Ángel Smith MD Primary Care Provider Ovidio Callahan MD Unavailable [phone] Reason for Visit * Reason Comments Medication Refill Encounter Details Date Type Department Care Team (Late st Contact Info) Description 04/29/2022 Refill [facility] #2 [place] [address] Ángel Smith MD #[address] [address] Medication Refill Social History Tobacco Use Types [...] Coronavirus/COVID-19? No / Unsure 04/13/2022 10:51 AM CONCRETE PLACEMENT EQUIPMENT OPERATOR documented as of this encounter Miscellaneous Notes * Telephone Encounter - Maite Padilla RN - 04/29/2022 12:13 PM CDT PDMP 04/21/22 - 10 days - pharmacy is closed on due /Monday Medication failed the [...] Delegated - Opioid Combinations Protocol Failed - 04/29/2022 8:35 AM Failed - This refill cannot be delegated Passed - Visit with relevant provider in past 12 months or upcoming 90 days Recent Visits Date Type Provider Dept 04/13/22 Office Visit Ángel Smith MD [facility] 01/12/22 Office Visit Ángel Smith MD [facility] 10/13/21 Office Visit Ángel Smith MD [facility] 07/05/21 Office Visit [facility] MD [facility] Showing recent visits within past 365 days and meeting all other requirements Future Appointments Date Type Provider Dept 07/14/22 Appointment Ángel Smith MD [facility] Showing future appointments within next 90 days and meeting all other requirements documented in this encounter Plan of Treatment Upcoming Encounters Date Type Department Care Team (Late st Contact Info) Description 07/16/2024 7:15 AM CDT Office Visit [facility] - [facility] Medicine - [place] [address] [place] [address] Ángel Smith MD [address] [address] documented as of this encounter Visit Diagnoses Diagnosis Chronic midline low back pain without sciatica documented in this encounter Additional Health Concerns Assessment Noted Time PHQ-9 Depression Total Score: 0 12/31/19 21 11:20 AM CONCRETE PLACEMENT EQUIPMENT OPERATOR documented as of this encounter Care Teams Infrastructure Engineer Relationship Specialty Start Date End Date Ángel Smith MD #2 [facility] [address] [place] [address] PCP - General Family Medicine 06/07/16 Ovidio Callahan MD 4 [facility] [address] [place] [address] Consulting Physician Obstetrics & Gynecology 02/23/18 documented as of this encounter
--- OUTSIDE RECORDS SUMMARY | 2024-06-26 11:37 | XMS_ITS | Encounter Summary ---
Author Organization [facility] Address [address] [place] [address] Phone Care Team Providers Care Rooming House Operator Name Role Phone Ángel Smith MD Primary Care Provider [phone] Ovidio Callahan MD Unavailable [phone] Reason for Visit * Reason Comments Medication Refill Encounter Details Date Type Department Care Team (Late st Contact Info) Description 09/20/2022 Refill [facility] [place] [address] Ángel Smith MD #[address] [address] Medication Refill Social History Tobacco Use Types [...] Telephone Encounter - Maite Padilla RN - 09/20/2022 5:11 PM CDT PDMP 08/20/22 Medication failed the protocol, provider to review and approve the medication order if appropriate. Requested Prescriptions Pending Prescriptions Disp Refills HYDROcodone-acetaminophen (NORCO) 5-325 MG Tablet [Pharmacy Med Name: HYDROCODONE BITARTRATE/ACETAMINOPHEN 5-325MG TABLET] 60 Tablet 0 Sig: TAKE ONE (1) TO TWO (2) TABLETS BY MOUTH EVERY 8 HOURS NEEDED FOR MODERATE OR MORE SEVERE PAIN. Not Delegated - Opioid Combinations Protocol Failed - 09/20/2022 3:13 PM Failed - This refill cannot be delegated Passed - Visit with relevant provider in past 12 months or upcoming 90 days Recent Visits Date Type Provider Dept 08/02/22 Office Visit Ángel Smith MD [facility] 04/13/22 Office Visit Ángel Smith MD [facility] 01/12/22 Office Visit Ángel Smith MD [facility] 10/13/21 Office Visit Ángel Smith MD [facility] Showing recent visits within past 365 days and meeting all other requirements Future Appointments Date Type Provider Dept 11/02/22 Appointment Ángel Smith MD [facility] Showing future appointments within next 90 days and meeting all other requirements documented in this encounter Plan of Treatment Upcoming Encounters Date Type Department Care Team (Late st Contact Info) Description 07/16/2024 7:15 AM CDT [facility] Visit [facility] - [place] [address] [place] [address] Ángel Smith MD [address] [address] documented as of this encounter Visit Diagnoses Diagnosis Chronic midline low back pain without sciatica documented in this encounter Additional Health Concerns Assessment Noted Time PHQ-9 Depression Total Score: 0 12/31/19 21 11:20 AM 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
--- OUTSIDE RECORDS SUMMARY | 2024-06-26 11:37 | XMS_ITS | Encounter Summary ---
Author Organization [facility] Address [address] [place] [address] Phone Care Team Providers Care Head Still Operator Name Role Phone Ángel Smith MD Primary Care Provider Ovidio Callahan MD Unavailable [phone] Reason for Visit * Reason Comments Medication Refill Encounter Details Date Type Department Care Team (Late st Contact Info) Description 04/19/2022 Refill [facility] [place] [address] Ángel Smith MD #[address] [address] Medication Refill Social History Tobacco Use Types [...] Coronavirus/COVID-19? No / Unsure 04/13/2022 10:51 AM CONVEYOR MAINTENANCE MECHANIC documented as of this encounter Miscellaneous Notes * Telephone Encounter - Maite Padilla RN - 04/19/2022 5:02 PM CST PDMP Alprazolam 03/23/22 30 days - [place] 03/23/22 20 days Medication failed the protocol, provider [...] Delegated - Opioid Combinations Protocol Failed - 04/19/2022 4:26 PM Failed - This refill cannot [...] Not Delegated - Benzodiazepines Protocol Failed - 04/19/2022 4:26 PM Failed - This refill cannot be delegated Passed - Visit with relevant provider in past 12 months or upcoming 90 days Recent Visits Date Type Provider Dept 04/13/22 Office Visit Ángel Smith MD [facility] 01/12/22 Office Visit Ángel Smith MD [facility] 10/13/21 Office Visit Ángel Smith MD [facility] 07/05/21 Office Visit Ángel Smith MD [facility] [place] Showing recent visits within past 365 days and meeting all other requirements Future Appointments Date Type Provider Dept 07/14/22 Appointment Ángel Smith MD [facility] Show[facility] future appointments within next 90 days and meeting all other requirements EYOR MAINTENANCE MECHANIC documented in this encounter Plan of Treatment Upcoming Encounters Date Type Department Care Team (Late st Contact Info) Description 07/16/2024 7:15 AM CDT Office Visit [facility] - Family Medicine - [place] #[address] [place] [address] Ángel Smith MD #[address] [address] documented as of this encounter Visit Diagnoses Diagnosis Chronic midline low back pain without sciatica Anxiety Anxiety state, unspecified documented in this encounter Additional Health Concerns Assessment Noted Time PHQ-9 Depression Total Score: 0 12/31/19 21 11:20 AM CONVEYOR MAINTENANCE MECHANIC documented as of this encounter Care Teams Head Still Operator Relationship Specialty Start Date End Date Ángel Smith MD #[address] [address] PCP - General Family Medicine 06/07/16 Ovidio Callahan MD [address] [place] [address] [facility] [address] [place] [address] Consulting Physician Obstetrics & Gynecology 02/23/18 documented as of this encounter
--- OUTSIDE RECORDS SUMMARY | 2024-06-26 11:37 | XMS_ITS | Encounter Summary ---
Author Organization [facility] Address [address] [place] [address] Phone Care Team Providers Care Solar Systems Designer Name Role Phone Ángel Smith MD Primary Care Provider [phone] Ovidio Callahan MD Unavailable [phone] Reason for Visit * Reason Comments Medication Refill Encounter Details Date Type Department Care Team (Late st Contact Info) Description 07/19/2022 Refill [facility] #2 [place] [address] Ángel Smith MD #[address] [address] Medication Refill Social History Tobacco Use Types [...] Miscellaneous Notes * Telephone Encounter - Marisol Jiang RN - 07/19/2022 9:18 AM CDT Per PDMP, last dispensed 06/21/22 as a 30-day supply Medication failed the protocol, provider to review and approve the medication order if appropriate. Requested Prescriptions Pending Prescriptions Disp Refills ALPRAZolam (XANAX) 1 MG Tablet [Pharmacy Med Name: ALPRAZOLAM 1MG TABLET] 60 Tablet 0 Sig: TAKE ONE (1) TABLET BY MOUTH THREE (3) TIMES DAILY NEEDED FOR ANXIETY. Not Delegated - Benzodiazepines Protocol Failed - 07/19/2022 8:18 AM Failed - This refill cannot be delegated Passed - Visit with relevant provider in past 12 months or upcoming 90 days Recent Visits Date Type Provider Dept 04/13/22 Office Visit Ángel Smith MD [facility] 01/12/22 Office Visit Ángel Smith MD [facility] 10/13/21 Office Visit Ángle Smith MD [facility] Showing recent visits [...] Description 07/16/2024 7:15 AM CDT Office Visit [facility] - Family Medicine [facility] #2 [place] [address] Ángel Smith MD #[address] [address] documented as of this encounter Visit Diagnoses Diagnosis Anxiety Anxiety state, unspecified documented in this encounter Additional Health Concerns Assessment Noted Time PHQ-9 Depression Total Score: 0 12/31/19 21 11:20 AM POLICE CLERK documented as of this encounter Care Teams Solar Systems Designer Relationship Specialty Start Date End Date Ángel Smith MD #[address] [address] PCP - General Family Medicine 06/07/16 Ovidio Callahan MD [address] [facility] [place] [address] Consulting Physician Obstetrics & Gynecology 02/23/18 documented as of this encounter
--- OUTSIDE RECORDS SUMMARY | 2024-06-26 11:37 | XMS_ITS | Encounter Summary ---
Author Organization [facility] Address [address] [place] [address] Phone Care Team Providers Care Senior Security Architect Name Role Phone Ángel Smith MD Primary Care Provider Ovidio Callahan MD Unavailable [phone] Reason for Visit * Reason Comments Medication Refill Encounter Details Date Type Department Care Team (Late st Contact Info) Description 06/20/2022 Refill [facility] #2 [place] [address] Ángel Smith MD #[address] [address] Medication Refill Social History Tobacco Use Types [...] Telephone Encounter - Maite Padilla RN - 06/21/2022 10:28 AM CDT PDMP 05/20/22 - 20 days Medication failed the protocol, provider to review and approve the medication order if appropriate. Requested Prescriptions Pending Prescriptions Disp Refills ALPRAZolam (XANAX) 1 MG Tablet [Pharmacy Med Name: ALPRAZOLAM 1MG TABLET] 60 Tablet 0 Sig: TAKE ONE (1) TABLET BY MOUTH THREE (3) TIMES DAILY NEEDED FOR ANXIETY. Not Delegated - Benzodiazepines Protocol Failed - 06/20/2022 3:42 PM Failed - This refill cannot be delegated Passed - Visit with relevant provider in past 12 months or upcoming 90 days Recent Visits Date Type Provider Dept 04/13/22 Office Visit Ángel Smith MD [facility] 01/12/22 Office Visit Ángel Smith MD [facility] 10/13/21 Office Visit Ángel Smith MD [facility] 07/05/21 Office Visit Ángel Smith MD [facility] Showing recent visits within past 365 [...] [facility] - [place] #2 [place] [address] Ángel Smith MD #[address] [address] documented as of this encounter Visit Diagnoses Diagnosis Anxiety Anxiety state, unspecified documented in this encounter Additional Health Concerns Assessment Noted Time PHQ-9 Depression Total Score: 0 12/31/19 21 11:20 AM CLINICAL EDUCATION CONSULTANT documented as of this encounter Care Teams Senior Security Architect Relationship Specialty Start Date End Date Ángel Smith MD #[address] [address] PCP - General Family Medicine 06/07/16 Ovidio Callahan MD [address] [facility] [place] [address] Consulting Physician Obstetrics & Gynecology 02/23/18 documented as of this encounter
--- OUTSIDE RECORDS SUMMARY | 2024-06-26 11:37 | XMS_ITS | Encounter Summary ---
Author Organization [facility] Address [address] [place] [address] Phone Care Team Providers Care Sectional Belt Mold Assembler Name Role Phone Ángel Smith MD Primary Care Provider Ovidio Callahan MD Unavailable [phone] Reason for Visit * Reason Comments Medication Refill Encounter Details Date Type Department Care Team (Late st Contact Info) Description 02/10/2020 Refill [facility] #2 [place] [address] Ángel Smith MD #[address] [address] Medication Refill Social History Tobacco Use Types [...] Telephone Encounter - Maite Padilla RN - 2020 8:52 AM CST Alprazolam renewed 02/11/[address] Smith Hydrocodone refused 02/11/[address] Smith duplicates NING PROGRAM ASSISTANT * Telephone Encounter - Maite Padilla RN - 2020 8:50 AM CST Images from the original note were not included. HYDROcodone-acetaminophen (NORCO) 5-325 MG Tablet 75 Tab 0 2020 Request refused: Patient needs appointment Sig - Route: Take 1 Tab by mouth every 4 hours as needed (pain). - Oral Class: E Prescribe Earliest Fill Date: 2020 Notes to Pharmacy: . Outpatient Morphine Equivalent Daily Dose (MEDD) 02/11/20 and after 30 mg MEDD Order Name Dose Route Frequency Maximum MEDD HYDROcodone-acetaminophen (NORCO) 5-325 MG Tablet 1 Tab Oral EVERY 4 HOURS PRN 30 mg MEDD Total Potential Daily Morphine Equivalence 30 mg MEDD Calculation Information Â HYDROcodone-acetaminophen (NORCO) 5-325 MG Tablet [[id number]] 0652 NING PROGRAM ASSISTANT documented in this encounter Plan of Treatment Upcoming Encounters Date Type Department Care Team (Late st Contact Info) Description 07/16/2024 7:15 AM CDT Office Visit [facility] - Family Medicine [facility] #2 [place] [address] Ángel Smith MD #[address] [address] documented as of this encounter Visit Diagnoses Diagnosis Chronic midline low back pain without sciatica- Primary Chronic pain of both knees documented in this encounter Additional Health Concerns Assessment Noted Time PHQ-9 Depression Total Score: 0 06/01/19 19 2:00 PM CDT documented as of this encounter Care Teams Sectional Belt Mold Assembler Relationship Specialty Start Date End Date Ángle Smith MD #[address] [address] PCP - General Family Medicine 06/07/16 Ovidio Callahan MD [address] [facility] [address] [place] [address] Consulting Physician Obstetrics & Gynecology 02/23/18 documented as of this encounter
--- OUTSIDE RECORDS SUMMARY | 2024-06-26 11:37 | XMS_ITS | Encounter Summary ---
Author Organization [facility] Address [address] [place] [address] Phone Care Team Providers Care Director Of Restaurant Name Role Phone Ángel Smith MD Primary Care Provider Ovidio Callahan MD Unavailable [phone] Reason for Visit * Reason Comments Medication Refill Encounter Details Date Type Department Care Team (Late st Contact Info) Description 07/07/2022 Refill [facility] #2 [place] [address] Ángel Smith MD #[address] [address] Medication Refill Social History Tobacco Use Types [...] encounter Miscellaneous Notes * Telephone Encounter - aMite Padilla RN - 07/07/2022 4:52 PM CDT PDMP 06/24/22 - 10 days Medication failed the protocol, [...] Delegated - Opioid Combinations Protocol Failed - 07/07/2022 3:19 PM Failed - This refill cannot be delegated Passed - Visit with relevant provider in past 12 months or upcoming 90 days Recent Visits Date Type Provider Dept 04/13/22 Office Visit Ángel Smith MD [facility] 01/12/22 Office Visit Ángel Smith MD [facility] 10/13/21 Office Visit Ángel Smith MD [facility] Showing recent visits within past 365 days and meeting all other requirements Future Appointments No visits were found meeting these conditions. Showing future appointments within next 90 days and meeting all other requirements documented in this encounter Plan of Treatment Upcoming Encounters Date Type Department Care Team (Late st Contact Info) Description 07/16/2024 7:15 AM CDT Office Visit [facility] - Family Medicine [facility] #2 [place] [address] Ángel Smith MD #[address] [address] documented as of this encounter Visit Diagnoses Diagnosis Chronic midline low back pain without sciatica documented in this encounter Additional Health Concerns Assessment Noted Time PHQ-9 Depression Total Score: 0 12/31/19 21 11:20 AM DENTAL LABORATORY ASSISTANT documented as of this encounter Care Teams Director Of Restaurant Relationship Specialty Start Date End Date Ángel Smith MD #[address] [address] PCP - General Family Medicine 06/07/16 Ovidio Callahan MD [address] [facility] [place] [address] Consulting Physician Obstetrics & Gynecology 02/23/18 documented as of this encounter
--- OUTSIDE RECORDS SUMMARY | 2024-06-26 11:37 | XMS_ITS | Encounter Summary ---
Author Organization [facility] Address [address] [place] [address] Phone Care Team Providers Care Electrical Test Technician Name Role Phone Ángel Smith MD Primary Care Provider Ovidio Callahan MD Unavailable [phone] Reason for Visit * Reason Comments Medication Refill Encounter Details Date Type Department Care Team (Late st Contact Info) Description 06/09/2022 Refill [facility] #2 [place] [address] Ángel Smith MD #[address] [address] Medication Refill Social History Tobacco Use Types [...] Telephone Encounter - Maite Padilla RN - 06/09/2022 11:22 AM CDT PDMP 05/31/22 - 10 days Medication [...] Delegated - Opioid Combinations Protocol Failed - 06/09/2022 8:23 AM Failed - This refill cannot be delegated Passed - Visit with relevant provider in past 12 months or upcoming 90 days Recent Visits Date Type Provider Dept 04/13/22 Office Visit Ángel Smith MD [facility] 01/12/22 Office Visit Ángel Smith MD [facility] 10/13/21 Office Visit Ángel Smith MD [facility] 07/05/21 Office Visit Ángel Smith MD [facility] Showing recent visits within [...] [facility] - Family Medicine [facility] #[address] [place] [address] Ángel Smith MD [address] [address] documented as of this encounter Visit Diagnoses Diagnosis Chronic midline low back pain without sciatica documented in this encounter Additional Health Concerns Assessment Noted Time PHQ-9 Depression Total Score: 0 12/31/19 21 11:20 AM FRENCH TUTOR documented as of this encounter Care Teams Electrical Test Technician Relationship Specialty Start Date End Date Ángel Smith MD [address] [place] [address] PCP - General Family Medicine 06/07/16 Ovidio Callahan MD [address] [facility] [address] [place] [address] Consulting Physician Obstetrics & Gynecology 02/23/18 documented as of this encounter
--- OUTSIDE RECORDS SUMMARY | 2024-06-26 11:37 | XMS_ITS | Encounter Summary ---
Author Organization [facility] Address [address] [place] [address] Phone Care Team Providers Care Solid Waste Collector Name Role Phone Ángel Smith MD Primary Care Provider Ovidio Callahan MD Unavailable [phone] Reason for Visit * Reason Comments Medication Refill Encounter Details Date Type Department Care Team (Late st Contact Info) Description 12/14/2019 Refill [facility] #2 [place] [address] Ángel Smith MD #[address] [address] Medication Refill Social History Tobacco Use Types [...] Telephone Encounter - Maite Padilla RN - 12/17/2019 9:40 AM CST Last OV 10/14/19 - no fol up MRI has not been completed to date Last Rx 12/02/19 Last UDS 2019 Maite Morales, Nacho Lockwood RN 12/03/19Â 4:48 PM Note Patient notified of response from Dr. Smith. Stated that she has to work and has back issues; is awaiting insurance authorization for MRI. Â Said that the [place]y has already been reduced in dose and frequency and said that she needs [place]y inorder to work and to take care of her children. Â Patient is asking what plans are for reducing Wake[place]y as she has already reduced dose and # dispense. Â Patient asked if she should see pain management. Â Medication failed the protocol, provider to review and approve the medication order if appropriate. Requested Prescriptions Pending Prescriptions Disp Refills HYDROcodone-acetaminophen (NORCO) 5-325 MG Tablet [Pharmacy Med Name: HYDROCODON-APAP 5-325MG TAB 5-325 Tablet] 80 Tab 0 Sig: TAKE 1 TAB BY MOUTH EVERY 4 HOURS NEEDED (PAIN). 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 Showing future appointments within next 90 days with a meds authorizing provider and meeting all other requirements ALS COORDINATOR documented in this encounter Plan of Treatment Upcoming Encounters Date Type Department Care Team (Late st Contact Info) Description 07/16/2024 7:15 AM CDT [facility] Visit [facility] #2 [place] [address] Ángel Smith MD #[address] [address] documented as of this encounter Visit Diagnoses Not on filedocumented in this encounter Additional Health Concerns Assessment Noted Time PHQ-9 Depression Total Score: 0 06/01/19 19 2:00 PM CDT documented as of this encounter Care Teams Solid Waste Collector Relationship Specialty Start Date End Date Ángel Smith MD #[address] [address] PCP - General Family Medicine 06/07/16 Ovidio Callahan MD 4 [facility] [address] [place] [address] Consulting Physician Obstetrics & Gynecology 02/23/18 documented as of this encounter
--- OUTSIDE RECORDS SUMMARY | 2024-06-26 11:37 | XMS_ITS | Referral Summary ---
Author Organization [facility] Address [address] [place] [address] Care Team Providers Care Clin Application Specialist Name Role Phone Ángel Smith MD Primary Care Provider [phone] Allergies Active Allergy Reactions Criticality Noted Date Comments Penicillins Medications propranolol (INDERAL) 20 mg tablet Take 20 mg by mouth 2 (two) times a day. Active no.37-vvtv-MH-d fish (LAW REPORTER-PNV-DHA) 28 mg iron- 1 mg-200 mg capsule [...] (11/29/2017): Added automatically from request for surgery [id number] Resolved Problems Problem Noted Date Diagnosed Date Resolved Date No pathologic diagnosis 06/29/201302/13 Overview (05/19/2016): No diagnosis Immunizations Immunization Administration Dates Next Due DTaP 04/04/2015 Influenza, Quadrivalent, Spl it, Intramuscular 02/24/2016 Influenza, Quadrivalent, Spl it, Preservative Free, Intramuscular 12/03/2018,12/20/2017,12/16/2016 Influenza, Trivalent, Preser vative Free, Intramuscular 12/03/2018 Tdap 06/21/2015 Social History Tobacco Use Types Packs/Day Years [...] on file Legal Sex Female 2:32 AM PROGRAM CLINICIAN Gender Identity Not on file Sexual Orientation [...] Plan of Treatment Not on file Insurance [facility] Care Teams Clin Application Specialist Relationship Specialty Start Date End Date Ángel Smith MD [address] [address] PCP - General 08/08/17
--- OUTSIDE RECORDS SUMMARY | 2024-06-26 11:37 | XMS_ITS | Encounter Summary ---
Author Organization [facility] Address [address] [place] [address] Phone Care Team Providers Care Supervisor Litharge Name Role Phone Ángel Smith MD Primary Care Provider Ovidio Callahan MD Unavailable [phone] Reason for Visit * Reason Comments Medication Refill Encounter Details Date Type Department Care Team (Late st Contact Info) Description 03/21/2022 Refill [facility] #2 [place] [address] Ángel Smith MD #[address] [address] Medication Refill Social History Tobacco Use Types [...] Telephone Encounter - Maite Padilla RN - 03/21/2022 2:05 PM CST PDMP 02/21/22 Medication failed the protocol, provider to review and approve the medication order if appropriate. Requested Prescriptions Pending Prescriptions Disp Refills ALPRAZolam (XANAX) 1 MG Tablet [Pharmacy Med Name: ALPRAZOLAM 1MG TABLET] 60 Tablet 0 Sig: TAKE ONE (1) TABLET BY MOUTH THREE (3) TIMES DAILY NEEDED FOR ANXIETY. Not Delegated - Benzodiazepines Protocol Failed - 03/21/2022 9:08 AM Failed - This refill cannot be delegated Passed - Visit with relevant provider in past 12 months or upcoming 90 days Recent Visits Date Type Provider Dept 01/12/22 Office Visit Ángel Smith MD [facility] 10/13/21 Office Visit Ángel Smith MD [facility] 07/05/21 Office Visit Ángel Smith MD [facility] 03/31/21 Telemedicine Ángel Smith MD [facility] Showing recent visits within past 365 days and meeting all other requirements Future Appointments Date Type Provider Dept 04/13/22 Appointment Ángel Smith MD [facility] Showing future appointments within next 90 days and meeting all other requirements HYDROcodone-acetaminophen (NORCO) 5-325 MG Tablet [Pharmacy Med Name: HYDROCODONE BITARTRATE/ACETAMINOPHEN 5-325MG TABLET] 60 Tablet 0 Sig: TAKE ONE (1) TO TWO (2) TABLETS BY MOUTH EVERY 8 HOURS NEEDED FOR MODERATE OR MORE SEVERE PAIN. Not Delegated - Opioid Combinations Protocol Failed - 03/21/2022 9:08 AM Failed - This refill cannot be delegated Passed - Visit with relevant provider in past 12 months or upcoming 90 days Recent Visits Date Type Provider Dept 01/12/22 Office Visit Ángel Smith MD [facility] 10/13/21 Office Visit Ángel Smith MD [facility] 07/05/21 Office Visit Ángel Smith MD [facility] 03/31/21 Telemedicine Ángel Smith MD [facility] Showing recent visits within past 365 days and meeting all other requirements Future Appointments Date Type Provider Dept 04/13/22 Appointment Ángel Smith MD [facility] Showing future appointments within next 90 days and meeting all other requirements MGR documented in this encounter Plan of Treatment Upcoming Encounters Date Type Department Care Team (Late st Contact Info) Description 07/16/2024 7:15 AM CDT Office Visit [facility] - Family [facility] [address] [place] [address] Ángel Smith MD [address] [address] documented as of this encounter Visit Diagnoses Diagnosis Anxiety Anxiety state, unspecified Chronic midline low back pain without sciatica documented in this encounter Additional Health Concerns Assessment Noted Time PHQ-9 Depression Total Score: 0 12/31/19 21 11:20 AM CARE MGR documented as of this encounter Care Teams Supervisor Litharge Relationship Specialty Start Date End Date Ángel Smith MD #[address] [place] [address] PCP - General Family Medicine 06/07/16 Ovidio Callahan MD 4 [facility] [address] [place] [address] Consulting Physician Obstetrics & Gynecology 02/23/18 documented as of this encounter
--- OUTSIDE RECORDS SUMMARY | 2024-06-26 11:37 | XMS_ITS | Encounter Summary ---
Author Organization [facility] Address [address] [place] [address] Phone Care Team Providers Care Integrated Circuit Fabricator Name Role Phone Ángel Smith MD Primary Care Provider Ovidio Callahan MD Unavailable Reason for Visit * Reason Comments Medication Refill Encounter Details Date Type Department Care Team (Late st Contact Info) Description 12/13/2019 Refill [facility] #2 [place] [address] Ángel Smith MD #[address] [address] Medication Refill Social History Tobacco Use Types [...] Telephone Encounter - Maite Padilla RN - 12/13/2019 4:41 PM CDT Authorized by pcp 12/12/19 Refused for duplicate request documented in this encounter Plan of Treatment Upcoming Encounters Date Type Department Care Team (Late st Contact Info) Description 07/16/2024 7:15 AM CDT [facility] Visit [facility] #2 [place] [address] Ángel Smith MD #[address] [address] documented as of this encounter Visit Diagnoses Not on filedocumented in this encounter Additional Health Concerns Assessment Noted Time PHQ-9 Depression Total Score: 0 06/01/19 19 2:00 PM CDT documented as of this encounter Care Teams Integrated Circuit Fabricator Relationship Specialty Start Date End Date Ángel Smith MD [address] [address] PCP - General Family Medicine 06/07/16 Ovidio Callahan MD [address] [facility] [address] [place] [address] Consulting Physician Obstetrics & Gynecology 02/23/18 documented as of this encounter
--- OUTSIDE RECORDS SUMMARY | 2024-06-26 11:37 | XMS_ITS | Encounter Summary ---
Author Organization [facility] Address [address] 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 Requested Prescriptions Pending Prescriptions Disp Refills ALPRAZolam (XANAX) 1 MG Tablet [Pharmacy Med Name: ALPRAZOLAM 1 MG TABS 1 Tablet] 60 Tab 0 Sig: TAKE 1 TAB BY MOUTH 3 TIMES DAILY NEEDED FOR ANXIETY. Not Delegated - Psychiatry: Anxiolytics/Hypnotics Failed - 01/08/2020 3:43 PM Failed - This refill cannot be delegated Passed - Valid encounter within last 6 months Past Office Visits Recent Outpatient Visits 2 months ago Anxiety [facility] - Ángel Diop MD 7 months ago Anxiety [facility] - Ángel Diop MD 1 year ago Anxiety [facility] - Ángel Diop MD 1 year ago Abscess [facility] - Eboni Arthur APN, MEDICAL SUPPORT ASSISTANT 1 year ago Chronic midline low back pain without sciatica [facility] Ángel Diop MD Upcoming Appointments ACCOUNT INSTALLER - Recent and Past Visits Recent Visits Date Type Provider Dept 10/14/19 Office Visit Ángel Smith MD [facility] 05/21/19 Telemedicine Ángel Smith MD [facility] 12/25/18 Office Visit Ángel Smith MD [facility] Showing recent visits within past 460 days with a meds authorizing provider and meeting all other requirements Future Appointments No visits were found meeting these conditions. Showing future appointments within next 90 days with a meds authorizing provider and meeting all other requirements ING PROCESS TECHNICIAN documented in this encounter Plan of Treatment Upcoming Encounters Date Type Department Care Team (Late st Contact Info) Description 07/16/2024 7:15 AM CDT Office Visit [facility] [address] [place] [address] Ángel Smith MD [address] [place] [address] documented as of this encounter Visit Diagnoses Not on filedocumented in this encounter Additional Health Concerns Assessment Noted Time PHQ-9 Depression Total Score: 0 06/01/19 19 2:00 PM CDT documented as of this encounter Care Teams Bung Dropper Relationship Specialty Start Date End Date Ángel Smith MD [address] [address] PCP - General Family Medicine 06/07/16 Ovidio Callahan MD [address] [facility] [address] [place] [address] Consulting Physician Obstetrics & Gynecology 02/23/18 documented as of this encounter
--- OUTSIDE RECORDS SUMMARY | 2024-06-26 11:37 | XMS_ITS | Encounter Summary ---
Author Organization [facility] Address [address] [place] [address] Phone Care Team Providers Care Second Shift Supervisor Name Role Phone Ángel Smith MD Primary Care Provider Ovidio Callahan MD Unavailable [phone] Reason for Visit * Reason Comments Medication Refill Encounter Details Date Type Department Care Team (Late st Contact Info) Description 01/13/2020 Refill [facility] #2 [place] [address] Ángel Smith MD #[address] [address] Medication Refill Social History Tobacco Use Types [...] Telephone Encounter - Ángel Smith MD - 01/14/2020 10:42 AM CST Prescription pending signature MAKER MACHINE TENDER * Telephone Encounter - Maite Padilla RN - 01/14/2020 10:26 AM CST Last OV 10/14/19 - no follow up - last Rx 12/17/19 This medication is duplicated on patient's med list. Medication failed the protocol, provider to review and approve the medication order if appropriate. Requested Prescriptions Pending Prescriptions Disp Refills HYDROcodone-acetaminophen (NORCO) 5-325 MG Tablet [Pharmacy Med Name: HYDROCODON-APAP 5-325MG TAB 5-325 Tablet] 75 Tab 0 Sig: TAKE 1 TAB BY MOUTH EVERY 4 HOURS NEEDED (PAIN). Not Delegated - Analgesics: Opioid Agonist Combinations Failed - 01/13/2020 2:58 PM Failed - This refill cannot be delegated Passed - Valid encounter within last 6 months Past Office Visits Recent Outpatient Visits 3 months ago Anxiety [facility] - Ángel Diop MD 7 months ago Anxiety [facility] - Ángel Diop MD 1 year ago Anxiety [facility] - Ángel Diop MD 1 year ago Abscess [facility] - [place] Johansen APN, POLICE SERGEANT PRECINCT 1 year ago Chronic midline low back pain without sciatica [facility] Ángel Diop MD Upcoming Appointments RUG SAMPLE BEVELER - Recent and Past Visits Recent Visits Date Type Provider Dept 10/14/19 Office Visit Ángel Smith MD [facility] 05/21/19 Telemedicine Ángel Smith MD [facility] 12/25/18 Office Visit Ángel Smith MD [facility] Showing recent visits within past 460 days with a meds authorizing provider and meeting all other requirements Future Appointments No visits were found meeting these conditions. Showing future appointments within next 90 days with a meds authorizing provider and meeting all other requirements MAKER MACHINE TENDER documented in this encounter Plan of Treatment Upcoming Encounters Date Type Department Care Team (Late st Contact Info) Description 07/16/2024 7:15 AM CDT Office Visit [facility] - [facility] - [place] [address] [place] [address] Ángel Smith MD [address] [facility] [place] [address] documented as of this encounter Visit Diagnoses Not on filedocumented in this encounter Additional Health Concerns Assessment Noted Time PHQ-9 Depression Total Score: 0 06/01/19 19 2:00 PM CDT documented as of this encounter Care Teams Second Shift Supervisor Relationship Specialty Start Date End Date Ángel Smith MD [address] [facility] [place] [address] PCP - General Family Medicine 06/07/16 Ovidio Callahan MD [address] [facility] [address] [place] [address] Consulting Physician Obstetrics & Gynecology 02/23/18 documented as of this encounter
--- OUTSIDE RECORDS SUMMARY | 2024-06-26 11:37 | XMS_ITS | Encounter Summary ---
Author Organization [facility] Address [address] [place] [address] Phone Care Team Providers Care Hollow Handle Bench Worker Name Role Phone Ángel Smith MD Primary Care Provider Ovidio Callahan MD Unavailable Reason for Visit * Reason Comments Medication Refill Encounter Details Date Type Department Care Team (Late st Contact Info) Description 05/31/2022 Refill [facility] #2 [place] [address] Ángel Smith MD #[address] [address] Medication Refill Social History Tobacco Use Types [...] Telephone Encounter - Maite Padilla RN - 05/31/2022 4:44 PM CDT PDMP 05/20/22 - 10 days Medication failed the protocol, [...] Delegated - Opioid Combinations Protocol Failed - 05/31/2022 4:25 PM Failed - This refill cannot be delegated Passed - Visit with relevant provider in past 12 months or upcoming 90 days Recent Visits Date Type Provider Dept 04/13/22 Office Visit Ángel Smith MD [facility] 01/12/22 Office Visit Ángel Smith MD [facility] 10/13/21 Office Visit Ángel Smith MD [facility] 07/05/21 Office Visit Á[facility] MD [facility] Showing recent visits within past 365 [...] 7:15 AM CDT Office Visit [facility] - Family Medicine [facility] #[address] [place] [address] Ángel Smith MD [address] [address] documented as of this encounter Visit Diagnoses Diagnosis Chronic midline low back pain without sciatica documented in this encounter Additional Health Concerns Assessment Noted Time PHQ-9 Depression Total Score: 0 12/31/19 21 11:20 AM MED ASST documented as of this encounter Care Teams Hollow Handle Bench Worker Relationship Specialty Start Date End Date Ángel Smith MD [address] [place] [address] PCP - General Family Medicine 06/07/16 Ovidio Callahan MD [address] [facility] [address] [place] [address] Consulting Physician Obstetrics & Gynecology 02/23/18 documented as of this encounter
--- OUTSIDE RECORDS SUMMARY | 2024-06-26 11:37 | XMS_ITS | Encounter Summary ---
Author Organization [facility] Address [address] [place] [address] Phone Care Team Providers Care Outreach Specialist Name Role Phone Ángel Smith MD Primary Care Provider Ovidio Callahan MD Unavailable Reason for Visit * Reason Comments Medication Refill Encounter Details Date Type Department Care Team (Late st Contact Info) Description 01/20/2022 Refill [facility] #2 [place] [address] Ángel Smith MD #[address] [address] Medication Refill Social History Tobacco Use Types [...] suspected to have Coronavirus/COVID-19? No / Unsure 01/12/2022 10:51 AM VIOLENT CRIMES DETECTIVE documented as of this encounter Miscellaneous Notes * Telephone Encounter - Maite Padilla RN - 01/20/2022 10:40 AM CST PDMP 12/24/21 - pharmacy closed on Monday/due date, post to Monday Medication failed the protocol, provider to review and approve the medication order if appropriate. Requested Prescriptions Pending Prescriptions Disp Refills ergocalciferol (VITAMIN D) 37602 UNIT Capsule [Pharmacy Med Name: VITAMIN D 82252NGL CAPSULE] 3 Capsule 2 Sig: TAKE ONE (1) CAP BY MOUTH EVERY 30 DAYS. Vitamin Supplements (Adult) Protocol Failed - 01/20/2022 9:09 AM Failed - Vitamin D less than 1.25mg Passed - Visit with relevant [...] Not Delegated - Benzodiazepines Protocol Failed - 01/20/2022 9:09 AM Failed - This refill cannot be [...] Provider Dept 04/13/22 Appointment Ángel Smith MD [facility] Showing future appointments within next 90 days and meeting all other requirements HYDROcodone-acetaminophen (NORCO) 5-325 MG Tablet [Pharmacy Med Name: HYDROCODONE BITARTRATE/ACETAMINOPHEN 5-325MG TABLET] 60 Tablet 0 Sig: TAKE ONE (1) TO TWO (2) TABLETS BY MOUTH EVERY 8 HOURS NEEDED FOR MODERATE OR MORE SEVERE PAIN. Not Delegated - Opioid Combinations Protocol Failed - 01/20/2022 9:09 AM Failed - This refill cannot be delegated Passed - Visit with relevant provider in past 12 months or upcoming 90 days Recent Visits Date Type Provider Dept 01/12/22 Office Visit Ángel Smith MD [facility] 10/13/21 Office Visit Ángel Smith MD [facility] 07/05/21 Office Visit Ángel Smith MD [facility] 03/31/21 Telemedicine Ángel Smith MD [facility] Showing recent visits within past 365 days and meeting all other requirements Future Appointments Date Type Provider Dept 04/13/22 Appointment Ángel Smith MD [facility] Showing future appointments within next 90 days and meeting all other requirements ENT CRIMES DETECTIVE documented in this encounter Plan of Treatment Upcoming Encounters Date Type Department Care Team (Late st Contact Info) Description 07/16/2024 7:15 AM CDT Office Visit [facility] - Family Medicine - Seth [address] [place] [address] Ángel Smith MD [address] [address] documented as of this encounter Visit Diagnoses Diagnosis Anxiety Anxiety state, unspecified Chronic midline low back pain without sciatica documented in this encounter Additional Health Concerns Assessment Noted Time PHQ-9 Depression Total Score: 0 12/31/19 21 11:20 AM VIOLENT CRIMES DETECTIVE documented as of this encounter Care Teams Outreach Specialist Relationship Specialty Start Date End Date Ángel Smith MD [address] [place] [address] PCP - General Family Medicine 06/07/16 Ovidio Callahan MD [address] [facility] [address] [place] [address] Consulting Physician Obstetrics & Gynecology 02/23/18 documented as of this encounter
--- OUTSIDE RECORDS SUMMARY | 2024-06-26 11:37 | XMS_ITS | Encounter Summary ---
Author Organization [facility] Address [address] [place] [address] Phone Care Team Providers Care Receiving Barn Custodian Name Role Phone Ángel Smith MD Primary Care Provider [phone] Ovidio Callahan MD Unavailable [phone] Reason for Visit * Reason Comments Medication Refill Encounter Details Date Type Department Care Team (Late st Contact Info) Description 02/17/2022 Refill [facility] #2 [place] [address] Ángel Smith MD #[address] [address] Medication Refill Social History Tobacco Use Types [...] Telephone Encounter - Maite Padilla RN - 02/18/2022 8:07 AM CST PDMP Alprazolam 01/22/22 - [place] 01/22/22 10-20 days supply Medication failed the protocol, provider [...] Delegated - Opioid Combinations Protocol Failed - 02/17/2022 3:24 PM Failed - This refill cannot be [...] Not Delegated - Benzodiazepines Protocol Failed - 02/17/2022 3:24 PM Failed - This refill cannot be [...] days and meeting all other requirements OMER OPERATOR documented in this encounter Plan of Treatment Upcoming Encounters Date Type Department Care Team (Late st Contact Info) Description 07/16/2024 7:15 AM CDT Office Visit [facility] Family [facility] #2 [place] [address] Ángel Smith MD [address] [address] documented as of this encounter Visit Diagnoses Diagnosis Chronic midline low back pain without sciatica Anxiety Anxiety state, unspecified documented in this encounter Additional Health Concerns Assessment Noted Time PHQ-9 Depression Total Score: 0 12/31/19 21 11:20 AM BOTTOMER OPERATOR documented as of this encounter Care Teams Receiving Barn Custodian Relationship Specialty Start Date End Date Ángel Smith MD #[address] [address] PCP - General Family Medicine 06/07/16 Ovidio Callahan MD 4 [facility] [address] [place] [address] Consulting Physician Obstetrics & Gynecology 02/23/18 documented as of this encounter
--- OUTSIDE RECORDS SUMMARY | 2024-06-26 11:38 | XMS_ITS | Encounter Summary ---
Author Organization [facility] Address [address] [place] [address] Phone Care Team Providers Care Embroidery Patternmaker Name Role Phone Ángel Smith MD Primary Care Provider Ovidio Callahan MD Unavailable [phone] Reason for Visit * Reason Comments Medication Refill Encounter Details Date Type Department Care Team (Late st Contact Info) Description 10/21/2021 Refill [facility] #2 [place] [address] Ángel Smith MD #[address] [address] Medication Refill Social History Tobacco Use Types [...] suspected to have Coronavirus/COVID-19? No / Unsure 10/13/2021 10:48 AM CDT documented as of this encounter Miscellaneous Notes * Telephone Encounter - Aida Villalobos RN - 10/22/2021 2:22 PM CDT S= Medications B= See notes below A= Patient states she is needing refills. Patient states she is working two jobs and needs these medications to get her through the day. R= Please advise. * Telephone Encounter - Marisol Jiang RN - 10/21/2021 2:37 PM CDT PDMP and MEDD reviewed. [place] dispensed 09/25/21 as a 10-day supply. Xanax dispensed 09/25/21 as a 20-day supply Medication failed the protocol, provider to review and approve the medication order if appropriate. Requested Prescriptions Pending Prescriptions Disp Refills ALPRAZolam (XANAX) 1 MG Tablet [Pharmacy Med Name: ALPRAZOLAM 1MG TABLET] 60 Tablet 0 Sig: TAKE ONE (1) TABLET BY MOUTH THREE (3) TIMES DAILY NEEDED FOR ANXIETY. Not Delegated - Benzodiazepines Protocol Failed - 10/21/2021 10:23 AM Failed - This refill cannot be delegated Passed - Visit with relevant provider in past 12 months or upcoming 90 days Recent Visits Date Type Provider Dept 10/13/21 Office Visit Ángel Smith MD [facility] 07/05/21 Office Visit Ángel Smith MD [facility] 03/31/21 Telemedicine Ángel Smith MD [facility] 12/30/20 Office Visit Ángel Smith MD [facility] Showing recent visits within past 365 days and meeting all other requirements Future Appointments Date Type Provider Dept 01/12/22 Appointment Ángel Smith MD [facility] Showing future appointments within next 90 days and meeting all other requirements HYDROcodone-acetaminophen (NORCO) 5-325 MG Tablet [Pharmacy Med Name: HYDROCODONE BITARTRATE/ACETAMINOPHEN 5-325MG TABLET] 60 Tablet 0 Sig: TAKE ONE (1) TABLET BY MOUTH EVERY FOUR (4) HOURS NEEDED (PAIN). Not Delegated - Opioid Combinations Protocol Failed - 10/21/2021 10:23 AM Failed - This refill cannot be delegated Passed - Visit with relevant provider in past 12 months or upcoming 90 days Recent Visits Date Type Provider Dept 10/13/21 Office Visit Ángel Smith MD [facility] 07/05/21 Office Visit Ángel Smith MD [facility] 03/31/21 Telemedicine Ángel Smith MD [facility] 12/30/20 Office Visit Ángel Smith MD [facility] Showing recent visits within past 365 days and meeting all other requirements Future Appointments Date Type Provider Dept 01/12/22 Appointment Ángel Smith MD [facility] Showing future appointments within next 90 days and meeting all other requirements documented in this encounter Plan of Treatment Upcoming Encounters Date Type Department Care Team (Late st Contact Info) Description 07/16/2024 7:15 AM CDT Office Visit [facility] - Family Medicine [facility] #[address] [place] [address] Ángel Smith MD #[address] [address] documented as of this encounter Visit Diagnoses Diagnosis Anxiety Anxiety state, unspecified Chronic midline low back pain without sciatica documented in this encounter Additional Health Concerns Assessment Noted Time PHQ-9 Depression Total Score: 0 12/31/19 21 11:20 AM ENVIRONMENTAL MARKETING REPRESENTATIVE documented as of this encounter Care Teams Embroidery Patternmaker Relationship Specialty Start Date End Date Ángel Smith MD #[address] [address] PCP - General Family Medicine 06/07/16 Ovidio Callahan MD [address] [place] [address] [address] [place] [address] Consulting Physician Obstetrics & Gynecology 02/23/18 documented as of this encounter
--- OUTSIDE RECORDS SUMMARY | 2024-06-26 11:38 | XMS_ITS | Encounter Summary ---
Author Organization [facility] Address [address] [place] [address] Phone Care Team Providers Care Cardiology Specialist Name Role Phone Ángel Smith MD Primary Care Provider Ovidio Callahan MD Unavailable [phone] Reason for Visit * Reason Comments Medication Refill Encounter Details Date Type Department Care Team (Late st Contact Info) Description 10/12/2021 Refill [facility] #2 [place] [address] Ángel Smith MD #[address] [address] Medication Refill Social History Tobacco Use Types [...] encounter Miscellaneous Notes * Telephone Encounter - Xochitl Curran RN - 10/12/2021 11:35 AM CDT PDMP filled 09/25/2021 #60. Medication failed the protocol, provider to review and approve the medication order if appropriate. Requested Prescriptions Pending Prescriptions Disp Refills ALPRAZolam (XANAX) 1 MG Tablet [Pharmacy Med Name: ALPRAZOLAM 1MG TABLET] 60 Tablet 0 Sig: TAKE ONE (1) TABLET BY MOUTH THREE (3) TIMES DAILY NEEDED FOR ANXIETY. Not Delegated - Benzodiazepines Protocol Failed - 10/12/2021 9:06 AM Failed - This refill cannot be delegated Passed - Visit with relevant provider in past 12 months or upcoming 90 days Recent Visits Date Type Provider Dept 07/05/21 Office Visit [facility] 03/31/21 Telemedicine Ángel Smith MD [facility] 12/30/20 Office Visit Ángel Smith MD [facility] Showing recent visits within past 365 days and meeting all other requirements Future Appointments Date Type Provider Dept 10/13/21 Appointment Ángel Smith MD [facility] Showing future appointments within next 90 days and meeting all other requirements documented in this encounter Plan of Treatment Upcoming Encounters Date Type Department Care Team (Late st Contact Info) Description 07/16/2024 7:15 AM CDT Office Visit [facility] - Family Medicine - [place] [address] [place] [address] Ángel Smith MD [address] [address] documented as of this encounter Visit Diagnoses Diagnosis Anxiety Anxiety state, unspecified documented in this encounter Additional Health Concerns Assessment Noted Time PHQ-9 Depression Total Score: 0 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
--- OUTSIDE RECORDS SUMMARY | 2024-06-26 11:38 | XMS_ITS | Encounter Summary ---
Author Organization [facility] Address [address] [place] [address] Phone Care Team Providers Care Door Attendant Name Role Phone Ángel Smith MD Primary Care Provider [phone] Ovidio Callahan MD Unavailable [phone] Reason for Visit * Reason Comments Medication Refill Encounter Details Date Type Department Care Team (Late st Contact Info) Description 10/23/2021 Refill [facility] #2 [place] [address] Ángel Smith MD #[address] [address] Medication Refill Social History Tobacco Use Types [...] encounter Miscellaneous Notes * Telephone Encounter - Joyce Malloy RN - 10/25/2021 9:15 AM CDT duplicate documented in this encounter Plan of Treatment Upcoming Encounters Date Type Department Care Team (Late st Contact Info) Description 07/16/2024 7:15 AM CDT Office Visit [facility] Family [facility] #2 [place] [address] Ángel Smith MD #[address] [address] documented as of this encounter Visit Diagnoses Diagnosis Anxiety Anxiety state, unspecified Chronic midline low back pain without sciatica documented in this encounter Additional Health Concerns Assessment Noted Time PHQ-9 Depression Total Score: 0 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
--- OUTSIDE RECORDS SUMMARY | 2024-06-26 11:38 | XMS_ITS | Encounter Summary ---
Author Organization [facility] Address [address] [place] [address] Phone Care Team Providers Care Firer Portable Boiler Name Role Phone Ángel Smith MD Primary Care Provider Ovidio Callahan MD Unavailable [phone] Reason for Visit * Reason Comments Medication Refill Encounter Details Date Type Department Care Team (Late st Contact Info) Description 10/02/2021 [facility]ill [facility] Medicine [facility] [address] [place] [address] Ángel Smith MD [address] [address] Medication Refill Social History Tobacco Use Types [...] Telephone Encounter - Xochitl Curran RN - 10/04/2021 8:54 AM CDT PDMP Filled 09/25/2021 for 10 day supply. Medication failed the protocol, provider to review and approve the medication order if appropriate. Requested Prescriptions Pending Prescriptions Disp Refills HYDROcodone-acetaminophen (NORCO) 5-325 MG Tablet [Pharmacy Med Name: HYDROCODONE BITARTRATE/ACETAMINOPHEN 5-325MG TABLET] 60 Tablet 0 Sig: TAKE ONE (1) TABLET BY MOUTH EVERY FOUR (4) HOURS NEEDED (PAIN). Not Delegated - Opioid Combinations Protocol Failed - 10/02/2021 8:51 AM Failed - This refill cannot be delegated Passed - Visit with relevant provider in past 12 months or upcoming 90 days Recent Visits Date Type Provider Dept 07/05/21 Office Visit Ángel Smith MD [facility] 03/31/21 Telemedicine Ángel Smith MD [facility] 12/30/20 [facility] Show[facility] recent visits within past 365 days and meeting all other requirements Future Appointments Date Type Provider Dept 10/05/21 Appointment Ángel Smith MD [facility] Showing future appointments within next 90 days and meeting all other requirements documented in this encounter Plan of Treatment Upcoming Encounters Date Type Department Care Team (Late st Contact Info) Description 07/16/2024 7:15 AM CDT Office Visit [facility] - Family Medicine 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
--- OUTSIDE RECORDS SUMMARY | 2024-06-26 11:38 | XMS_ITS | Encounter Summary ---
Author Organization [facility] Address [address] [place] [address] Phone Care Team Providers Care Integration Specialist Name Role Phone Ángel Smith MD Primary Care Provider [phone] Ovidio Callahan MD Unavailable [phone] Reason for Visit * Reason Onset Date Comments Advice Only 06/21/2024 Encounter Details Date Type Department Care Team (Late st Contact Info) Description 06/21/2024 Telephone [facility] [address] [place] [address] Ángel Smith MD #[address] [address] Advice Only Social History Tobacco Use Types Packs/Day Years Used Date Smoking Tobacco: Light Smoker Cigarettes 0.3 15 Smokeless Tobacco: Never Comments:Smoked for 15 years on and off;about 3 a day Alcohol Use Standard Drinks/Week Comments Not Currently 0 (1 standard drink = 0.6 oz pur e alcohol) wine here and there [facility] Utilities Answer Date Recorded In the past 12 months has [employer], gas, oil, or water company threatened to [...] often do you attend chur ch or buddhist services? More than 4 times per year 04/26/2024 Do you belong to any clubs o r organizations such as protestant groups, unions, fraternal or athletic groups, or [...] Total Score - Questions 1-9 0 04/13 [facility] - Occupational Stress Questionnaire Answer Date [...] any time in the past 12 m [facility], were you homeless or living in a long-term (including now)? No 04/26/2024 Education Answer Date [...] encounter Miscellaneous Notes * Telephone Encounter - Kathy Rogers RN - 06/25/2024 1:47 PM CDT Situation: follow up results Background: Patient contacting PCP office. Assessment: Calling for results of her Holter Monitor Explained to patient results have not been signed and posted. Patient would like a call back when results of her Holter Monitor are available Recommendation: Please advise Encounter routed to provider to notify. Discussed utilizing [employer] to: discuss if they would prefer a [employer] message or phone call response and view results Requesting * Telephone Encounter - Alyssa Ansari RN - 06/21/2024 9:48 AM CDT Holter monitor still shows in process. Called EKG and they stated that they have not gotten this back. Called and spoke with patient and she stated that she turned it in on 05-25-24 or 06-01-24 at the registration desk. Called stress lab back and they stated that they will look for it and call patient back. * Telephone Encounter - Katiana Hayden - 06/21/2024 8:31 AM CDT Please call Keri (relationship to patient self) back at primary phone number [phone] regarding above referenced patient. Secondary phone number is [phone]. Call is concerning Keri is requesting to talk to a nurse regarding her Holter monitor results and the next steps she needs to take. Patient's PCP is Ángel Smith MD. Thank you. documented in this encounter Plan of Treatment Upcoming Encounters Date Type Department Care Team (Late st Contact Info) Description 07/16/2024 7:15 AM CDT Office Visit [facility] [address] [place] [address] Ángel Smith MD [address] [address] documented as of this encounter Visit Diagnoses Not on filedocumented in this encounter Additional Health Concerns Assessment Noted Time PHQ-9 Depression Total Score: 0 04/27/19 24 3:12 PM CDT documented as of this encounter Care Teams Integration Specialist Relationship Specialty Start Date End Date Ángel Smith MD [facility] [address] [place] [address] PCP - General Family Medicine 06/07/16 Ovidio Callahan MD [address] [place] [address] [address] [facility] [place] [address] Consulting Physician Obstetrics & Gynecology 02/23/18 documented as of this encounter
--- OUTSIDE RECORDS SUMMARY | 2024-06-26 11:38 | XMS_ITS | Encounter Summary ---
Author Organization [facility] Address [address] [place] [address] Phone Care Team Providers Care Public Relations Intern Name Role Phone Ángel Smith MD Primary Care Provider [phone] Ovidio Callahan MD Unavailable [phone] Reason for Visit * Reason Comments Medication Refill Encounter Details Date Type Department Care Team (Late st Contact Info) Description 05/28/2024 Refill [facility] [address] [place] [address] Ángel Smith MD #[address] [address] Medication Refill Social History Tobacco Use Types Packs/Day Years Used Date Smoking Tobacco: Light Smoker Cigarettes 0.3 15 Smokeless Tobacco: Never Comments:Smoked for 15 years on and off;about 3 a day Alcohol Use Standard Drinks/Week Comments Not Currently 0 (1 standard drink = 0.6 oz pur e alcohol) wine here and there [facility] Utilities Answer Date Recorded In the past 12 months has [employer], gas, oil, or water company threatened to [...] often do you attend chur ch or yarsani services? More than 4 times per year 04/26/2024 Do you belong to any clubs o r organizations such as orthodoxy groups, unions, fraternal or athletic groups, or [...] Total Score - Questions 1-9 0 04/13 [facility] - Occupational Stress Questionnaire Answer Date Recorded [...] any time in the past 12 m [facility], were you homeless or living in a [place] health [place] facility (including now)? No 04/26/2024 Education Answer Date [...] Telephone Encounter - Maite Padilla RN - 05/29/2024 9:28 AM CDT Images from the original note were not included. HYDROcodone-Acetaminophen Dispensed Days Supply Quantity Provider Pharmacy HYDROCODONE BITARTRATE-ACETAMINOPHE 05/11/2024 10 30 , ÁNGEL SMITH [facility] HYDROCODONE BITARTRATE-ACETAMINOPHE 04/12/2024 30 40 , ÁNGEL SMITH 5 [place] Medication failed the protocol, provider to review and approve the medication order if appropriate. Requested Prescriptions Pending Prescriptions Disp Refills HYDROcodone-acetaminophen (NORCO) 5-325 MG Tablet [Pharmacy Med Name: HYDROCODONE BITARTRATE/ACETAMINOPHEN 5-325MG TABLET] 30 Tablet 0 Sig: TAKE 1 TABLET BY MOUTH EVERY 8 HOURS NEEDED FOR MODERATE OR MORE SEVERE PAIN. Not Delegated - Opioid Combinations Protocol Failed - 05/29/2024 9:28 AM Failed - This refill cannot be delegated Passed - Visit with relevant provider in past 12 months or upcoming 90 days Recent Visits Date Type Provider Dept 04/26/24 Office Visit [facility] 03/14/24 Office Visit Ángel Smith MD [facility] 11/14/23 Office Visit Ángel Smith MD [facility] 08/15/23 Office Visit Ángel Smith MD [facility] Showing recent visits within past 365 days and meeting all other requirements Future Appointments Date Type Provider Dept 07/16/24 Appointment Ángel Smith MD [facility] Showing future appointments within next 90 days and meeting all other requirements documented in this encounter Plan of Treatment Upcoming Encounters Date Type Department Care Team (Late st Contact Info) Description 07/16/2024 7:15 AM CDT Office Visit [facility] - Family Medicine - [place] [address] [place] [address] Ángel Smith MD [address] [address] documented as of this encounter Visit Diagnoses Diagnosis Chronic midline low back pain without sciatica documented in this encounter Additional Health Concerns Assessment Noted Time PHQ-9 Depression Total Score: 0 04/27/19 24 3:12 PM CDT documented as of this encounter Care Teams Public Relations Intern Relationship Specialty Start Date End Date Ángel Smith MD [address] [address] PCP - General Family Medicine 06/07/16 Ovidio Callahan MD [address] [place] [address] [address] [place] [address] Consulting Physician Obstetrics & Gynecology 02/23/18 documented as of this encounter
--- OUTSIDE RECORDS SUMMARY | 2024-06-26 11:38 | XMS_ITS | Continuity of Care Document ---
Author Organization [facility] Address [address] [place] [address] [place] [address] Phone Care Team Providers Care Supervisor Decorating Name Role Phone Kayode Ye MD Unavailable Unavailable Allergies, Adverse Reactions, Alerts Substance Reaction Status Criticality penicillin G Active No Information Medications Medication Instructions Dosage Effective Dates (start - stop) Status Comments Xanax 1 mg tablet take 1 tablet by oral route 2 times every day 1 MG - Active hydrocodone 5 mg-acetaminophen 325 mg tablet take 1 tablet by oral route every 6 hours as needed for pain as needed 1.00 tablet - Active propranolol 20 mg tablet take 1 tablet by oral route 2 times every day 20 MG - Active Procedures Procedure Date PREV VISIT, NEW, AGE 40-64 OFFICE/OUTPATIENT VISIT, NEW OFFICE/OUTPATIENT VISIT, EST OFFICE/OUTPATIENT VISIT, EST PREV VISIT, EST, AGE 18-39 OFFICE/OUTPATIENT VISIT, EST OFFICE/OUTPATIENT VISIT, EST OFFICE/OUTPATIENT VISIT, EST OFFICE/OUTPATIENT VISIT, EST OFFICE/OUTPATIENT VISIT, EST OFFICE/OUTPATIENT VISIT, EST OFFICE/OUTPATIENT VISIT, EST OFFICE/OUTPATIENT VISIT, EST OFFICE/OUTPATIENT VISIT, EST OFFICE/OUTPATIENT VISIT, EST PREV VISIT, EST, AGE 18-39 OFFICE/OUTPATIENT VISIT, EST OFFICE/OUTPATIENT VISIT, EST OFFICE/OUTPATIENT VISIT, EST OFFICE/OUTPATIENT VISIT, EST OFFICE/OUTPATIENT VISIT, EST OFFICE/OUTPATIENT VISIT, EST OFFICE/OUTPATIENT VISIT, EST OFFICE/OUTPATIENT VISIT, EST OFFICE/OUTPATIENT VISIT, EST OFFICE/OUTPATIENT VISIT, EST OFFICE/OUTPATIENT VISIT, EST OFFICE/OUTPATIENT VISIT, EST OFFICE/OUTPATIENT VISIT, EST PREV VISIT, EST, AGE 18-39 OFFICE/OUTPATIENT VISIT, EST OFFICE/OUTPATIENT VISIT, EST OFFICE/OUTPATIENT VISIT, EST OFFICE/OUTPATIENT VISIT, EST PREV VISIT, NEW, AGE 18-39 Advance Directives Directive Yes / No Effective Date File Name No Information Encounters Encounter Description Practice Location Reason(s) For Visit Diagnoses Date Provider Providers Copied on Encounter PREV VISIT, NEW, AGE 40-64 [facility], [place], [address] [place] [address], [place] tel:[phone] [facility] [place] physical (chief complaint) Encounter for general adult medical exam w abnormal findingsFatty liverGeneralized anxiety disorderChronic pain syndromeAmenorrhea 9-202 4 Ephra[address] Vora [address] [place], [address] , [place]. tel:[phone] Referring Provider: Kaydoe Ye [address], [place], [place], [address]. tel:[phone] OFFICE/OUTPA TIENT VISIT, [facility], [address] [place], [address], [place] tel:[phone] [facility] [place] back pain1 (chief complaint)a nxiety1 (chief complaint)h and numbness1 (chief complaint) Lesion of ulnar nerve, bilateral upper limbsLumbagoGenera lized anxiety disorder -201 7 Ephra[address] Vora [address], [place], [place], [address] , [place]. [phone] Referring Provider: Marko Merino [address], [place], [place], [address]. tel:[phone] OFFICE/OUTPA TIENT VISIT, [facility], [address], [place], [place], [address], [place] [phone] [facility] [place] anxiety1 (chief complaint)b ack pain1 (chief complaint) Generalized Anxiety DisorderChronic pain syndrome 7 Ephraim Headley. [address], [place], [place], [address] , [place]. [phone] Referring Provider: Marko Merino [address], [place], [place], [address]. tel:[phone] PREV VISIT, EST, AGE 18-39 [facility], [place], [address], [place], [address], [place] tel:[phone] [facility] [place] Physical (chief complaint) Encounter for general adult medical exam w abnormal findingsLiver diseaseGeneralized anxiety disorderLumbago Ephraim Headley. [address], [place], [place], [address] , [place]. [phone] Referring Provider: Marko Mer[address], [place], [place], [address]. tel:[phone] OFFICE/OUTPA TIENT VISIT, [facility], [address], [place], [place], [address], [place] tel:[phone] [facility] [place] anxiety1 (chief complaint)b ack pain1 (chief complaint)t obacco (chief complaint)f atty liver1 (chief complaint) Chronic pain syndromeGeneralize d anxiety disorderTobacco useFatty liver 7 Ephraim Headley. [address], [place], [place], [address] , [place]. tel: [phone] Referring Provider: Marko Merino [address], [place], [place], [address]. tel:[phone] OFFICE/OUTPA TIENT VISIT, [facility], [address], [place], [place], [address], [place] tel:[phone] [facility] [place] anxiety1 (chief complaint)f atty liver1 (chief complaint)b ack pain1 (chief complaint) Generalized Anxiety DisorderLiver diseaseLumbago 7 Ephra[address] Headley. [address], [place], [place], [address] , [place]. tel:[phone] Referring Provider: Marko Mer[address], [place], [place], [address]. tel:[phone] OFFICE/OUTPA TIENT VISIT, [facility], [address], [place], [place], [address], [place] tel:[phone] [facility] [place] back pain1 (chief complaint)a nxiety1 (chief complaint) Chronic pain syndromeGeneralize d anxiety disorder 6 Ephraim Headley. [address], [place], [place], [address] , [place]. tel:[phone] Referring Provider: Mark[address], [place], [place], [address]. tel:[phone] OFFICE/OUTPA TIENT VISIT, [facility], [address], [place], [place], [address], [place] tel:[phone] [facility] [place] back pain1 (chief complaint)a nxiety1 (chief complaint)u lnar neuropathy (chief complaint)m elanoma1 (chief complaint) Chronic pain syndromeGeneralize d anxiety disorderLiver diseaseMelanoma 6 Ephra[address] Headley. [address], [place], [place], [address] , [place]. tel:[phone] Referring Provider: Marko Mer[address], [place], [place], [address]. tel:[phone] OFFICE/OUTPA TIENT VISIT, [facility], [address], [place], [place], [address], [place] tel:[phone] [facility] [place] back pain1 (chief complaint)a nxiety1 (chief complaint)m ole (chief complaint)l iver nodule (chief complaint) Nevus, non-neoplasticGene ralized anxiety disorderLiver diseaseLumbago 6 Ephra[address] Headley. [address], [place], [place], [address] , [place]. [phone] Referring Provider: Kayode Ye [address], [place], [place], [address]. tel:[phone] OFFICE/OUTPA TIENT VISIT, [facility], [address], [place], [address], [place] tel:[phone] [facility] [place] back pain1 (chief complaint)a nxiety1 (chief complaint)h and numnbess1 (chief complaint) LumbagoGeneralized anxiety disorderLesion of ulnar nerve of armLiver disease 6 Ephra[address] Headley. [address], [place], [place], [address] , [place]. [phone] Referring Provider: Marko Merino [address], [place], [place], [address]. tel:[phone] OFFICE/OUTPA TIENT VISIT, [facility], [address], [place], [place], [address], [place] tel:[phone] [facility] [place] back pain1 (chief complaint)a nxiety1 (chief complaint)p roteinruia (chief complaint)H TN (chief complaint) Chronic pain syndromeGeneralize d anxiety disorderProteinuri aEssential (primary) hypertension 6 Ephra[address] Head[address]. [address], [place], [place], [address] , [place]. tel:[phone] Referring Provider: [address], [place], [place], [address]. tel:[phone] OFFICE/OUTPA TIENT VISIT, [facility], [address], [place], [place], [address], [place] tel:[phone] [facility] Medicine proteinuria 1 (chief complaint)a nxiety1 (chief complaint)l iver disease1 (chief complaint)b ack pain1 (chief complaint) ProteinuriaGeneral ized anxiety disorderLiver diseaseChronic pain syndrome 6 Ephra[address] Head[address]. [address], [place], [place], [address] , [place]. tel:[phone] Referring Provider: Marko Mer[address], [place], [place], [address]. tel:[phone] OFFICE/OUTPA TIENT VISIT, [facility], [address], [place], [place], [address], [place] tel:[phone] [facility] [place] back pain1 (chief complaint)a nxiety1 (chief complaint)l iver disease1 (chief complaint) Liver diseaseGeneralized anxiety disorderChronic pain syndrome 6 Ephra[address] Headley. [address], [place], [place], [address] , [place]. tel:[phone] Referring Provider: Marko Mer[address], [place], [place], [address]. tel:[phone] PREV VISIT, EST, AGE 18-39 [facility], [place], [address], [place], [place], [address], [place] tel:[phone] [facility] [place] Physical (chief complaint) Encntr for general adult medical exam w/o abnormal findings 6 Ephraim Headley. [address], [place], [place], [address] , [place]. tel:[phone] Referring Provider: Marko Mer[address], [place], [place], [address]. tel:[phone] OFFICE/OUTPA TIENT VISIT, EST [facility] [place], [address], [place], [place], [address], [place] tel:[phone] [facility] Medicine lumbago1 (chief complaint)a nxiety1 (chief complaint)t remor (chief complaint)f atty liver (chief complaint) Other spondylosis, lumbar regionGeneralized anxiety disorderOther specified forms of tremorLiver disease, unspecified 5 Ephra[address]. [address], [place], [place], [address] , [place]. [phone] Referring Provider: Kayode Ye, [address], [place], [place], [address]. tel:[phone] OFFICE/OUTPA TIENT VISIT, [facility], [address], [place], [place], [address], [place] [phone] [facility] [place] fatty liver1 (chief complaint)a nxiety1 (chief complaint)b ack pain1 (chief complaint)t remor (chief complaint) Essential tremorOther spondylosis, lumbar regionFatty liverGeneralized anxiety disorder 5 Ephra[address]. [address], [place], [place], [address] , [place]. [phone] Referring Provider: Marko Mer[address], [place], [place], [address]. tel:[phone] OFFICE/OUTPA TIENT VISIT, [facility], [address], [place], [place], [address], [place] tel:[phone] [facility] [place] fatty liver (chief complaint)u lnar neuropathy (chief complaint)b ack pain (chief complaint)t remor (chief complaint) Fatty liverLiver massUlnar neuropathyLumbago 5 Ephraim Headley. [address], [place], [place], [address] , [place]. [phone] Referring Provider: Marko [address], [place], [place], [address]. tel:[phone] OFFICE/OUTPA TIENT VISIT, [facility], [address], [place], [address], [place] tel:[phone] [facility] [place] numbness (chief complaint)b ack pain (chief complaint)a nxiety (chief complaint) Disturbance of skin sensationGeneraliz ed anxiety disorderLumbago 5 [address]ra[address]ora [address], [place], [place], [address] , [place]. tel:[phone] Referring Provider: Marko Mer[address], [place], [place], [address]. tel:[phone] OFFICE/OUTPA TIENT VISIT, [facility], [address], [place], [place], [address], [place] tel:[phone] [facility] [place] carptal tunnel (chief complaint)b ack pain (chief complaint)A nxiety (chief complaint) Carpal tunnelGeneralized anxiety disorderLumbago Sep- 5 [address]ra[address], [place], [address] , [place]. [phone] Referring Provider: Marko [address], [place], [place], [address]. tel:[phone] OFFICE/OUTPA TIENT VISIT, [facility], [address], [place], [place], [address], [place] tel:[phone] [facility] [place] lumbago (chief complaint)A nxiety (chief complaint)l iver (chief complaint) Unspecified disorder of liverGeneralized anxiety disorderLumbagoDis turbance of skin sensation 5 [address], [place], [place], [address] , [place]. [phone] Referring Provider: Marko [address], [place], [place], [address]. tel:[phone] OFFICE/OUTPA TIENT VISIT, [facility], [address], [place], [place], [address], [place] tel:[phone] [facility] [place] back pain (chief complaint)A nxiety (chief complaint)l iver disease (chief complaint)l iver (chief complaint)H TN (chief complaint) Unspecified disorder of liverLumbagoGenera lized anxiety disorderBlood pressure elevated David-0 5 Ephra[address]. [address], [place], [place], [address] , [place]. tel:[phone] Referring Provider: Marko Mer[address], [place], [place], [address]. tel:[phone] OFFICE/OUTPA TIENT VISIT, [facility], [address], [place], [place], [address], [place] tel:[phone] [facility] [place] tremor (chief complaint)b ack pain (chief complaint)a nxiety (chief complaint)h and numbness (chief complaint) Abnormal involuntary movementsLumbagoGe neralized anxiety disorderCarpal Tunnel Syndrome 5 Ephra[address]. [address], [place], [place], [address] , [place]. tel:[phone] Referring Provider: Marko Mer[address], [place], [place], [address]. tel:[phone] OFFICE/OUTPA TIENT VISIT, [facility], [address], [place], [place], [address], [place] tel:[phone] [facility] [place] Tremor (chief complaint)b ack pain (chief complaint)a nxiety (chief complaint)l iver diseaes (chief complaint) Dietary surveillance and counselingAbnormal involuntary movementsUnspecifi ed disorder of liverOpioid type dependence, unspecified useCarpal Tunnel Syndrome 5 Ephra[address]. [address], [place], [place], [address] , [place]. tel:[phone] Referring Provider: Marko Mer[address], [place], [place], [address]. tel:[phone] OFFICE/OUTPA TIENT VISIT, [facility], [address], [place], [place], [address], [place] tel:[phone] [facility] [place] back pain (chief complaint)a nxiety (chief complaint)a llergy (chief complaint)t remor (chief complaint) Dietary surveillance and counselingAbnormal involuntary movementsLumbagoGe neralized anxiety disorderAllergic rhinitis, cause unspecified 5 [address]. [address], [place], [place], [address] , [place]. [phone] Referring Provider: Kayode Ye, [address], [place], [place], [address]. tel:[phone] OFFICE/OUTPA TIENT VISIT, [facility], [address], [place], [place], [address], [place] tel:[phone] [facility] [place] LFT (chief complaint)b ack pain (chief complaint)a nxiety (chief complaint) Dietary surveillance and counselingUnspecif ied disorder of liverLumbagoGenera lized anxiety disorderOpioid type dependence, unspecified use 5 Ephra[address]. [address], [place], [place], [address] , [place]. [phone] Referring Provider: Marko Mer[address], [place], [place], [address]. tel:[phone] OFFICE/OUTPA TIENT VISIT, [facility], [address], [place], [place], [address], [place] tel:[phone] [facility] [place] back pain (chief complaint)a nxiety (chief complaint)L FT (chief complaint)n umbness (chief complaint) LumbagoGeneralized anxiety disorderUnspecifie d disorder of liverDisturbance of skin sensation 5 [address], [place], [place], [address] , [place]. tel:[phone] Referring Provider: Marko Mer[address], [place], [place], [address]. tel:[phone] OFFICE/OUTPA TIENT VISIT, [facility], [address], [place], [place], [address], [place] tel:[phone] [facility] [place] anxiety (chief complaint)L BP (chief complaint)H TN (chief complaint) Dietary surveillance and counselingLumbagoG eneralized anxiety disorderHypertensi on, Unspecified 5 Ephra[address] Headley. [address], [place], [place], [address] , [place]. [phone] Referring Provider: Marko [address], [place], [place], [address]. tel:[phone] PREV VISIT, EST, AGE 18-39 [facility], [place], [address], [place], [place], [address], [place] tel:[phone] [facility] [place] Physical (chief complaint) Routine Medical ExamRoutine Medical Exam 4 Ephra[address] V[address], [place], [place], [address] , [place]. [phone] Referring Provider: Marko [address], [place], [place], [address]. tel:[phone] OFFICE/OUTPA TIENT VISIT, EST [facility], [place], [address], [place], [place], [address], [place] tel:[phone] [facility] [place] back pain (chief complaint)a nxiety (chief complaint)H TN (chief complaint) Dietary surveillance and counselingLumbagoH ypertension, UnspecifiedOTHER PANCYTOPENIA 3 [address], [place], [place], [address] , [place]. [phone] Referring Provider: Marko Mer[address], [place], [place], [address]. tel:[phone] OFFICE/OUTPA TIENT VISIT, EST [facility], [place], [address], [place], [place], [address], [place] tel:[phone] [facility] [place] back pain (chief complaint)a nxiety (chief complaint)c old symptoms (chief complaint) LumbagoGeneralized anxiety disorderAcute upper respiratory infections of other multiple sites 3 [address]ra[address]. [address], [place], [place], [address] , [place]. tel:[phone] Referring Provider: Marko Mer[address], [place], [place], [address]. tel:[phone] OFFICE/OUTPA TIENT VISIT, [facility], [address], [place], [place], [address], [place] tel:[phone] [facility] [place] back pain (chief complaint)a nxiety (chief complaint)l ymphadenopa thy (chief complaint) Dietary surveillance and counselingLumbagoE nlargement of lymph nodesGeneralized anxiety disorder 3 [address]. [address], [place], [place], [address] , [place]. [phone] Referring Provider: Marko Mer[address], [place], [place], [address]. tel:[phone] OFFICE/OUTPA TIENT VISIT, [facility], [address], [place], [place], [address], [place] tel:[phone] [facility] [place] back pain (chief complaint)l ymphadenopa thy (chief complaint) LumbagoEnlargement of lymph nodesOTHER PANCYTOPENIAGenera lized anxiety disorder 3 [address]. [address], [place], [place], [address] , [place]. tel:[phone] Referring Provider: Marko Mer[address], [place], [place], [address]. tel:[phone] PREV VISIT, NEW, AGE 18-39 [facility], [place], [address], [place], [place], [address], [place] tel:[phone] [facility] [place] Physical (chief complaint) Routine Medical ExamRoutine Medical Exam 3 [address], [place], [place], [address] , [place]. [phone] Referring Provider: Marko Mer[address], [place], [place], [address]. tel:[phone] Family History Family Member Type Diagnosis Age At Onset Father Problem (finding) Hypertension Problem (finding) Family history of Hyper tension Brother Problem (finding) Alive and well Father Problem (finding) COPD Problem (finding) Family history of Coronary artery disease Father Problem (finding) Back Pain Problem (finding) Family history of Back Pain Payers Payer name Insurance type Covered libertarian ID Authoriza tion(s) No Information Social History Type Description Quantity Date Captured Comments Alcohol Use Details No Caffeine Use Details Unknown Tobacco Use Status Moderate cigarette smoker (10-19 cigs/day) Smoking Status Heavy tobacco smoker Smoking Tobacco Use Details Cigarette: Age Started: 28, Years Used 16 Cigarette: 10 Cigarettes per day, Pack Year: 8 Sex Female Vital Signs Date / Time: Height Weight BMI Pulse Rate Blood Pressure Temperature Respiratory Rate Body Surface Area Head Circumference BMI percentile Pulse Ox Inhaled Ox 12:22 PM 63.00 in 156.80 lbs 27.7 8 kg/m eter (2) 71 /min 140/82 mm[Hg] 97.8 F 16 /min Chief Complaint And Reason For Visit From encounter dated '01/22/2024 12:21'. physical (chief complaint). Description: Pt needs annual physical pt has chronic anxiety without depression Pt is off wellbutrin. Pt takes xanax PRn and doing ok pt denies any suicidal or homicidal thought Pt denies any crying spells. Pt also has chronic low back pain with sciatica and she has bilateral leg neuropathy symptoms. Pt is on norco PRN for pain only pt denies any loss of bowel or bladder control or saddle area paresthesia. Pt also has hand and foot pain and neuropathy symptoms. Pt also has fatty liver Pt has not had period for 8 months Pt has been having hot flashes. Pt states thather current doctor gave her lower dose of norco which is not helping and she wants to go back to higher dose of norco, which she received from me over 8 years ago. Plan Of Treatment Date Type Action Status Goal Tobacco cessation counseling completed Goal Tobacco cessation counseling completed Goal Tobacco cessation counseling completed Goal Tobacco cessation counseling completed Goal Tobacco cessation counseling completed Goal Tobacco cessation counseling completed Goal Tobacco cessation counseling completed Goal Tobacco cessation counseling completed Goal Tobacco cessation counseling completed Goal Tobacco cessation counseling completed Goal Tobacco cessation counseling completed Goal Tobacco cessation counseling completed Referral Ordered: Matt Gregg (related to Lesion of ulnar nerve, bilateral upper limbs) ordered Referral Referred To: Matt Gregg [facility] [address] [place], [id number] Ordered: Referrals: Matt Gregg ordered Referral Ordered: Gastroenterology (related to Liver disease) ordered Referral Ordered: Matt Gregg (related to Nevus, non-neoplastic) ordered Referral Ordered: MRI ABDOMEN W/O & W/DYE ordered Referral Ordered: Matt Gregg (related to Lesion of ulnar nerve of arm) ordered Referral Referred To: Matt Gregg [facility] [address] [place], [phone] Ordered: Referrals: Matt Gregg. Evaluate and treat ordered Referral Ordered: Gastroenterology (related to Fatty liver) ordered Referral Ordered: Referrals: Gastroenterology. Evaluate and treat ordered Referral Ordered: MRI BRAIN W/O & W/DYE ordered Referral Ordered: Neurosurgery (related to Lumbago) ordered Referral Ordered: Jason Bain (related to Lumbago) ordered Referral Ordered: Referrals: Neurosurgery. Evaluate and treat ordered Referral Referred To: Jason Bain [address] [facility] [address] [place], [phone] Ordered: Referrals: Jason Bain. Evaluate and treat ordered Referral Ordered: MOTOR NERVE CONDUCTION TEST ordered Referral Ordered: US EXAM, ABDOM, COMPLETE ordered Referral Ordered: Physical Therapy (related to Lumbago) ordered Referral Referred To: Physical Therapy Ordered: Referral: Physical Therapy. ordered Referral Ordered: CT SFT TSUE NCK W/O & W/DYE ordered Referral Ordered: MRI LUMBAR SPINE W/O DYE ordered History Of Present Illness Encounter Date Complaint History Of Prese nt Illness physical Pt needs annual physical pt has chronic anxiety without depression Pt is off wellbutrin. Pt takes xanax PRn and doing ok pt denies any suicidal or homicidal thought Pt denies any crying spells. Pt also has chronic low back pain with sciatica and she has bilateral leg neuropathy symptoms. Pt is on norco PRN for pain only pt denies any loss of bowel or bladder control or saddle area paresthesia. Pt also has hand and foot pain and neuropathy symptoms. Pt also has fatty liver Pt has not had period for 8 months Pt has been having hot flashes. Pt states that her current doctor gave her lower dose of norco which is not helping and she wants to go back to higher dose of norco, which she received from me over 8 years ago. back pain1 Pt has chronic l ow back pain. Pt denies any loss of bowel or bladder control. Pt has 7/10 pain. Pt states that robaxin does not help Pt states that she sometimes takes 4 per day due to her back pain anxiety1 Pt has anxiety a nd depression. Pt takes wellbuterin and xanax and doing ok. Pt denies any suicidal or homicidal thought hand numbness1 Pt has bilateral hand numnbess and tingling and hand weakness. Pt is noncompliant with hand surgeon. Pt also does not wear wrist splint anxiety1 Pt has chronic a nxiety and depression Pt takes wellbutrin and xanax and doing ok Pt denies any suicidal or homicdial thought. Pt denies any crying spells back pain1 Pt has chornic l ow back apin .Pt denies any loss of bowel or bladder control. Pt denies any worsening pain Physical Pt needs annual physical. Pt has chronic low back pain. pt denies any loss of bowel or bldder control. Pt has 7/10 pain. Pt has mild sciatica. Pt c/o mild leg numbness. Pt has anxiety and depression. Pt takes wellbutirin and xanax and she states that her mood is ok but her anxiety is getting worse. Pt has rudolph liver. Pt has not seen GI yet Pt denies any other complaints anxiety1 Pt has chronic a nxiety and deprssion. Pt takes wellbutirn 150 but she has not noticed big improvement in her mood Pt denies any suicidal or homicidal thought Pt still feels depressed with cyring spells back pain1 Pt has chronic l ow back pain. Pt denies any loss of bowel or bladder control. Pt has some leg numbness and sciatica symptoms. Pt denies any urinary retention or incontinence. Pt states that she has been running out of robaxin early tobacco Pt still smoking . Pt notices slighlty improvement with urge with wellbutrin but she still smoking about 1/2 PPD. fatty liver1 Pt has fatty jaiden er pt has not seen GI yet anxiety1 Pt has chronic a nxiety and she feels depressed, not able to focus and concentrated and she has crying spells lately. pt denies any suicidal or homicidal thought. fatty liver1 Pt has liver MRI done which showed fatty liver Pt denies any alcohol consumption. Pt denies any abd pain back pain1 Pt has chornic l ow back pain Pt denies any loss of bowel or bladder control. Pt has pain between norco. Pt wants to try muscle rexalant. back pain1 Pt has chronic l ow back pain. Pt has 7/10 pain. Pt failed NSAID. Pt denies any worsening pian. Pt has some sciatica. anxiety1 pt has chroinc a nxiety. Pt denies any depression or any suicidal thought. Pt denies any cyring spells back pain1 Pt has chronic l ow back pain. Pt denies any worsening pain. Pt c/o mild sciatica Pt denies any loss of bowel or bladder control anxiety1 Pt has chronic a nxiety. Pt denies any depression or any suicidal thought Pt denies any crying spells ulnar neuropathy Pt c/o bilatera l hand numbness and tingling Pt has ulnar neuropathy Pt needs to see Dr. Montalvo for that melanoma1 Pt has melanoma. Pt is seeing Dr. Montalvo. Pt has appointment for full body skin exam next week. Pt was told the melanoma is very superficial at this point back pain1 Pt has chronic l ow back apin Pt has 6/10 pain. Pt c/o mild scaitica and leg numbness. Pt denies any worsening pain anxiety1 Pt has chronic a nxiety. Pt denie any depression or any suicidal thought. Pt denies anyc rying spells mole Pt notices a mol e on her back for several months. Pt denies any irritation. Pt notices some color change around the area. Pt does not have any family history of melanoma liver nodule Pt has history o f liver nodule. Pt was noncompliant with MRI. Pt had ultrasound done which is normal just now Pt denies any abd pain back pain1 Pt has chronic l ow back pain. Pt states that her geraldine is getting worse. Pt had MRI done which is benign. Pt c/o sciatica and leg numnbess sometimes. anxiety1 Pt has chronic a nxiety. Pt denies any depression or any suicidal thought. Pt takes xanax PRN and doing ok. Pt denies any crying spells hand numnbess1 Pt has right penny d numnbess and weakness and pain. Pt has ulnar neuropathy. Pt states that it is getting worse HTN Pt has mild bord jennifer HTN today. pt denies any chest pain or headache back pain1 Pt has chronic l ow back pain with left sciatica and left leg numbness. Pt had MRI approved and she has it scheduled soon. Pt denies any loss of bowel or bladder control. Pt denies any worsening apin anxiety1 Pt has chronic a nxiety. Pt denies any depression or any suicidal thought proteinruia Pt has mild prot einuria on lab Pt denies any UTI symptoms. NO blood in urine proteinuria1 Pt has mild prot einuria on lab Pt denies any UTI symptoms anxiety1 Pt has chronic a niety. Pt deneis any depression or any suicidal thought. Pt takes xanax PRn and doing ok liver disease1 Pt has liver nod ule and fatty liver Pt is noncompilant with GI and she still has not done liver ultrasound yet Pt denies any abd pain back pain1 PT c/o chronic l ow back pain Pt denies any loss of bowel or bldder control. Pt c/o left sciatica Pt c/o left leg numbness. Pt states that her low back pain has been worse lately back pain1 Pt has chronic l ow back pain. Pt denies any loss of bowel or bladder control. Pt has bilateral sciatica and leg numbness. Pt denies any worening pain anxiety1 Pt has chronic a nxiety. Pt denies any depression or any suicidal thought Pt takes xanax PRN. Pt denies any cyring spells liver disease1 Pt has history o f liver nodule. Pt never follwed up with GI physician. Pt is noncompliant P denies any abd pain or any jaundice Physical Pt needs annual physical. pt has chronic low back pain with left sciatica. Pt takes norco for pain. Pt also has chronic anxiety. PT denies any depression or any suicidal thought. Pt denies any crying spells. Pt has history of fatty liver. pt is off propranolol and also no longer has any tremor. Pt just had a baby recently. Pt never followed up with GI regarding liver nodule. Pt denies any other complaints anxiety1 Pt has chronic a nxiety. Pt denies any depression or any suicidal thought. Pt takes xanax PRN. Pt denies any crying spells. Pt denies any feeling of hopelessness tremor Additional infor quan: Pt has mild bilateral hand tremor. MRI not approved yet. Pt did not call [facility] to follow up on the MRI. fatty liver Pt has fatty jaiden er with nodule. Pt canceled her appointment with GI due to unable to get off work lumbago1 Pt has chronic l ow back pain. Pt c/o bilateral sciatica. Pt denies any loss of bowel or bladder control. Pt still has not made appointment with neurosrugery at [facility] yet. ??? Pt denies any worsening pain. Pt has 7/10 pain sharp nature fatty liver1 Pt has fatty jaiden er and liver lesion. Pt has appointment with ne[facility] in December. Pt denies any abd pain anxiety1 Pt has chronic a nxeity. Pt denies any depression or any suicidal thought. Pt takes xanax PRN. Pt denies worsenign symptoms. Pt denies crying spells or feeling of hopelessness. back pain1 Pt has chronic l ow back pain with sciatica down to bilateral legs. Pt denies any loss of bowel or bladder control. Pt has numbness around upper leg. Pt still has not heard from neurosurgery. tremor Additional infor mation: Pt has essential tremor. Propranolol working well to control symptoms. Pt denies any headache. MRI not approved yet. fatty liver Pt has fatty jaiden er and liver nodule Pt does not drink alcohol. Pt does not have high lipid profile. Pt is not overweight. Pt denies any abd pain. ulnar neuropathy Pt has right ul claudia neuropathy. Pt notices bilateral hand numbness and tingling. Pt notices some weakness. Pt denies any pain or worsening symptoms back pain Additional infor mation: Pt has chronic LBP. Pt denies any loss of bowel or bladder control. Pt has bilateral scaitcia. Pt denies any numbness. Pt has not heard from neurosurgery yet. tremor Additional infor mation: Pt has chronic bilateral hand resting tremor. Pt takes propranlol which really helps. Pt denies any headache. numbness Additional infor mation: Pt has chornic bilatearl hand and feet numnbess. Pt still not wearing splint. Pt has NCS scheduled next week. Pt did not start neurontin. back pain Additional infor mation: Pt has chronic LBP Pt denies any loss of bowel or bladder control. Pt states that her back pain is getting worse. Pt c/o sciatica to both upper leg. anxiety Additional infor mation: Pt has chronic anxiety .pt denies any depression or any suicidal thought. Pt atkes xanax PRN and doing ok. carptal tunnel Pt has bilateral hand numbness and tingling for 3-4 weeks. Pt notices hand weaknes. Pt also notices numbness and tingling both feet intermittently for several weeks. Pt notices some hand swelling. Pt denies any injury. Pt denies any claudication back pain Additional infor mation: Pt has chronic LBP for several years. Pt notices dull ache. Pt notices left scaitica and some left leg numbness. Pt denies any loss of bowel or bladder control. Anxiety The patient pres ents with anxious/fearful thoughts but denies fatigue. The patient denies any headache, nausea, vomiting and weight gain. Additional information: Pt has chronic anxiety. Pt denies any depression or any sucidasl thought. Pt feels nervous and has panic attacks sometimes. Pt takes xanax PRN and doing ok. lumbago Pt has chronic L BP. Pt denies any loss of bowel or bladder control. Pt c/o left sciatica. Pt notices mild numbness left leg. Pt has been working and on his feet all day. Pt notices worsening back pain. Anxiety The patient pres ents with anxious/fearful thoughts but denies fatigue. The patient denies any vomiting and weight gain. Additional information: Pt has chronic anxiety. Pt denies any depression or any suicidal thought. Pt takes xanax PRN. liver Pt has not done liver lutrasound yet back pain Additional infor mation: Pt has chornic LBP Pt denies any loss of bowel or bladder control. Anxiety Additional infor mation: Pt has chronic anxity Pt denies any depression or any suicidal thought Pt takes xanax PRN. liver disease liver Pt has mildly el evated LFT. Pt has not done ultrasound yet HTN Pt has HTN and t remor. Pt is out of propranolol for several days. Pt denie [id number]|2024-06-26 11:42:00|2024-06-26 11:42:00|ED_ITS|[facility]|Health Information Management|[id number]|"HPI - Wound/Laceration General Chief Complaint: Wound/Laceration Stated Complaint: open wound on abdomen Time Seen by Provider: 06/26/24 12:15 Source: patient and RN notes reviewed Mode of arrival: ambulatory Limitations: dementia History of Present Illness HPI narrative: 44-year-old female presents concern for redness and drainage around her belly button piercing. Reports she has had the piercing for a long time and has not had Rosy in the piercing. Reports she noticed a few days ago there was drainage, it was becoming red and swollen. Denies fever, body aches, chills, sweats Related Data Home Medications Medication Instructions Recorded Confirmed Last Taken Type alprazalam 06/26/24 Unknown History alprazolam 1 mg tablet mg 06/26/24 Unknown History aspirin 81 mg chewable tablet 81 mg PO DAILY 06/26/24 Unknown History (Aspirin Childrens) ergocalciferol (vitamin D2) 1,250 06/26/24 Unknown History mcg (50,000 unit) capsule hydrocodone-acetaminophen 06/26/24 Unknown History propranolol 20 mg tablet mg 06/26/24 Unknown History Allergies Allergy/AdvReac Type Severity Reaction Status Date / Time Penicillins Allergy Intermediate Rash Verified 06/26/24 11:46 Review of Systems Review of Systems: CONSTITUTIONAL: Denies malaise, chills, sweats, or fever. EYES: Denies redness, or discharge. ENT: Denies rhinorrhea, congestion, swollen lips, swollen tongue CARDIOVASCULAR: Denies chest pain, palpitations, or edema. RESPIRATORY: Denies cough or dyspnea. GASTROINTESTINAL: Denies abdominal pain, nausea, vomiting SKIN: Reports redness, swelling, purulent drainage from umbilical piercing site. No vesicles, bullae, numbness, pain beyond proportion MUSCULOSKELETAL: Denies joint pain or myalgia. NEUROLOGIC: Denies headache. All systems reviewed & are unremarkable except as noted in HPI and below PMFSH Comments At time of signature, agree with nursing past medical, surgical, social and family history. There is no relevant family history pertinent to the presenting complaint Exam Narrative: GENERAL: Well-appearing, well-nourished, and in no acute distress. HEAD: Normocephalic, atraumatic. EYES: PERRLA, conjunctivae clear ENT: Mucous membranes moist. NECK: Supple. No lymphadenopathy CHEST: Clear to auscultation. No respiratory distress. HEART: Regular rate and rhythm. SKIN: Warm, dry. Erythema, induration, tenderness, warmth with sharp margins noted above the umbilicus with his central raised area with open skin, no fluctuation. No vesicles, bullae, necrosis, ecchymosis, crepitus noted. NEURO: Alert and oriented x3. PSYCH: Normal mood and affect Course Course Emergency Course: Patient is aware of diagnosis, understands and agrees to treatment plan. Anticipatory guidance given. Patient agrees to follow-up as directed and is aware of reasons to seek care at the emergency department. Portions of this record may have been created with voice recognition software Level of Care: Express Care Visit Vital Signs Vital signs: Reviewed. MDM - Wound/Laceration MDM Narrative Medical decision making narrative: I evaluated this patient in the express care. History is obtained from patient who is an independent historian and physical exam was performed. Available medical records were reviewed. Exam findings and relevant testing show no acute concerns or changes; patient is non-toxic appearing and is in no distress. Differential diagnosis and treatment plan were discussed with the patient. Patient agrees with discussion and after shared medical decision making agrees with plan of care. All questions were answered to the patient's satisfaction. Patient is appropriate for outpatient treatment and follow-up. Critical Care Time Critical Care Time Critical Care Time: No Discharge Plan Discharge Clinical Impression: Infected pierced belly button Patient Disposition: Home Condition: Stable Instructions: Antibiotic Form, Cellulitis (ED) Additional Instructions: Please follow up with your Primary Care Doctor within 48-72 hours - call for an appointment. Rest and elevate affected area; apply moist heat 3-4 times daily for 10-15 minutes. Take Motrin 600mg every 8 hours with food for pain. Please take Antibiotics as directed. If you experience any worsening redness, swelling, streaking (red lines), fever or chills please go to the ER Patient Language: Telugu Prescriptions: New sulfamethoxazole-trimethoprim 800-160 mg tablet 1 tablet PO Q12H 7 Days Qty: 14 0RF No Action alprazolam 1 mg tablet ergocalciferol (vitamin D2) 1,250 mcg (50,000 unit) capsule propranolol 20 mg tablet aspirin [Aspirin Childrens] 81 mg tablet,chewable 81 mg PO DAILY hydrocodone-acetaminophen alprazalam Follow-up/Referrals: Luis,Ángel Vernon MD [Primary Care Provider] - Time of Disposition: 12:23 "
[2024-06-26 11:40] VITALS: BP 126/93; PULSE 77; RESP 18; TEMP 36.9; O2SAT 100
--- NOTE | 2024-06-26 11:42 | ED.WOUNDLAC ---
HPI - Wound/Laceration General Chief Complaint: Wound/Laceration Stated Complaint: open wound on abdomen Time Seen by Provider: 06/26/24 12:15 Source: patient and RN notes reviewed Mode of arrival: ambulatory Limitations: dementia History of Present Illness HPI narrative: 44-year-old female presents concern for redness and drainage around her belly button piercing. Reports she has had the piercing for a long time and has not had Rosy in the piercing. Reports she noticed a few days ago there was drainage, it was becoming red and swollen. Denies fever, body aches, chills, sweats Related Data Home Medications Medication Instructions Recorded Confirmed Last Taken Type alprazalam 06/26/24 Unknown History alprazolam 1 mg tablet mg 06/26/24 Unknown History aspirin 81 mg chewable tablet 81 mg PO DAILY 06/26/24 Unknown History (Aspirin Childrens) ergocalciferol (vitamin D2) 1,250 06/26/24 Unknown History mcg (50,000 unit) capsule hydrocodone-acetaminophen 06/26/24 Unknown History propranolol 20 mg tablet mg 06/26/24 Unknown History Allergies Allergy/AdvReac Type Severity Reaction Status Date / Time Penicillins Allergy Intermediate Rash Verified 06/26/24 11:46 Review of Systems Review of Systems: CONSTITUTIONAL: Denies malaise, chills, sweats, or fever. EYES: Denies redness, or discharge. ENT: Denies rhinorrhea, congestion, swollen lips, swollen tongue CARDIOVASCULAR: Denies chest pain, palpitations, or edema. RESPIRATORY: Denies cough or dyspnea. GASTROINTESTINAL: Denies abdominal pain, nausea, vomiting SKIN: Reports redness, swelling, purulent drainage from umbilical piercing site. No vesicles, bullae, numbness, pain beyond proportion MUSCULOSKELETAL: Denies joint pain or myalgia. NEUROLOGIC: Denies headache. All systems reviewed & are unremarkable except as noted in HPI and below PMFSH Comments At time of signature, agree with nursing past medical, surgical, social and family history. There is no relevant family history pertinent to the presenting complaint Exam Narrative: GENERAL: Well-appearing, well-nourished, and in no acute distress. HEAD: Normocephalic, atraumatic. EYES: PERRLA, conjunctivae clear ENT: Mucous membranes moist. NECK: Supple. No lymphadenopathy CHEST: Clear to auscultation. No respiratory distress. HEART: Regular rate and rhythm. SKIN: Warm, dry. Erythema, induration, tenderness, warmth with sharp margins noted above the umbilicus with his central raised area with open skin, no fluctuation. No vesicles, bullae, necrosis, ecchymosis, crepitus noted. NEURO: Alert and oriented x3. PSYCH: Normal mood and affect Course Course Emergency Course: Patient is aware of diagnosis, understands and agrees to treatment plan. Anticipatory guidance given. Patient agrees to follow-up as directed and is aware of reasons to seek care at the emergency department. Portions of this record may have been created with voice recognition software Level of Care: Express Care Visit Vital Signs Vital signs: Reviewed. MDM - Wound/Laceration MDM Narrative Medical decision making narrative: I evaluated this patient in the [facility] care. History is obtained from patient who is an independent historian and physical exam was performed. Available medical records were reviewed. Exam findings and relevant testing show no acute concerns or changes; patient is non-toxic appearing and is in no distress. Differential diagnosis and treatment plan were discussed with the patient. Patient agrees with discussion and after shared medical decision making agrees with plan of care. All questions were answered to the patient's satisfaction. Patient is appropriate for outpatient treatment and follow-up. Critical Care Time Critical Care Time Critical Care Time: No Discharge Plan Discharge Clinical Impression: Infected pierced belly button Patient Disposition: Home Condition: Stable Instructions: Antibiotic Form, Cellulitis (ED) Additional Instructions: Please follow up with your Primary Care Doctor within 48-72 hours - call for an appointment. Rest and elevate affected area; apply moist heat 3-4 times daily for 10-15 minutes. Take Motrin 600mg every 8 hours with food for pain. Please take Antibiotics as directed. If you experience any worsening redness, swelling, streaking (red lines), fever or chills please go to the ER Patient Language: French Prescriptions: New sulfamethoxazole-trimethoprim 800-160 mg tablet 1 tablet PO Q12H 7 Days Qty: 14 0RF No Action alprazolam 1 mg tablet ergocalciferol (vitamin D2) 1,250 mcg (50,000 unit) capsule propranolol 20 mg tablet aspirin [Aspirin Childrens] 81 mg tablet,chewable 81 mg PO DAILY hydrocodone-acetaminophen alprazalam Follow-up/Referrals: Luis,Ángel Vernon MD [Primary Care Provider] - Time of Disposition: 12:23
--- OUTSIDE RECORDS SUMMARY | 2024-06-26 11:42 | XMS_ITS | Continuity of Care Document ---
Author Organization [facility] Address [address] [place] [address] [place] [address] Phone Care Team Providers Care Paper Final Inspector Name Role Phone Kayode Ye MD Unavailable Unavailable Allergies, Adverse Reactions, Alerts Substance Reaction Status Criticality penicillin G Active No Information Medications Medication Instructions Dosage Effective Dates (start - stop) Status Comments propranolol 20 mg tablet take 1 tablet by oral route 2 times every day 20 MG - Active hydrocodone 5 mg-acetaminophen 325 mg tablet take 1 tablet by oral route every 6 hours as needed for pain as needed 1.00 tablet - Active Xanax 1 mg tablet take 1 tablet by oral route 2 times every day 1 MG - Active Procedures Procedure Date PREV [...] on Encounter PREV VISIT, NEW, AGE 40-64 [facility], [address], [address], [place] tel:[phone] [facility] physical (chief complaint) Encounter for general adult medical exam w abnormal findingsFatty liverGeneralized anxiety disorderChronic pain syndromeAmenorrhea 9-202 4 Ephra[address]ora [address] [place], [place], [address] , [place]. tel:[phone] Referring Provider: Kayode Ye [address], [place], [place], [address]. tel:[phone] OFFICE/OUTPA TIENT VISIT, [facility], [address] [place], [place], [address], [place] tel:[phone] [facility] back pain1 (chief complaint)a nxiety1 (chief complaint)h and numbness1 (chief complaint) Lesion of ulnar nerve, bilateral upper limbsLumbagoGenera lized anxiety disorder -201 7 Ephra[address] Vora [address], [place], [place], [address] , [place]. [phone] Referring Provider: Marko Merino [address], [place], [place], [address]. tel:[phone] OFFICE/OUTPA TIENT VISIT, [facility], [address], [place], [place], [address], [place] [phone] [facility] anxiety1 (chief complaint)b ack pain1 (chief complaint) Generalized Anxiety DisorderChronic pain syndrome 7 Ephraim Headley. [address], [place], [place], [address] , [place]. [phone] Referring Provider: Marko Mer[address], [place], [place], [address]. tel:[phone] PREV VISIT, EST, AGE 18-39 [facility], [address], [place], [place], [address], [place] tel:[phone] [facility] Physical (chief complaint) Encounter for general adult medical exam w abnormal findingsLiver diseaseGeneralized anxiety disorderLumbago Ephraim Headley. [address], [place], [place], [address] , [place]. [phone] Referring Provider: Marko Mer[address], [place], [place], [address]. tel:[phone] OFFICE/OUTPA TIENT VISIT, [facility], [address], [place], [place], [address], [place] tel:[phone] [facility] anxiety1 (chief complaint)b ack pain1 (chief complaint)t obacco (chief complaint)f atty liver1 (chief complaint) Chronic pain syndromeGeneralize d anxiety disorderTobacco useFatty liver 7 Ephraim Headley. [address], [place], [place], [address] , [place]. [phone] Referring Provider: Marko Mer[address], [place], [place], [address]. tel:[phone] OFFICE/OUTPA TIENT VISIT, [facility], [address], [place], [place], [address], [place] tel:[phone] [facility] anxiety1 (chief complaint)f atty liver1 (chief complaint)b ack pain1 (chief complaint) Generalized Anxiety DisorderLiver diseaseLumbago 7 Ephraim Headley. [address], [place], [place], [address] , [place]. tel:[phone] Referring Provider: Marko [address], [place], [place], [address]. tel:[phone] OFFICE/OUTPA TIENT VISIT, [facility], [address], [place], [place], [address], [place] tel:[phone] [facility] back pain1 (chief complaint)a nxiety1 (chief complaint) Chronic pain syndromeGeneralize d anxiety disorder 6 Ephraim Headley. [address], [place], [place], [address] , [place]. tel:[phone] Referring Provider: Marko Mer[address], [place], [address]. tel:[phone] OFFICE/OUTPA TIENT VISIT, [facility], [address], [place], [place], [address], [place] tel:[phone] [facility] back pain1 (chief complaint)a nxiety1 (chief complaint)u lnar neuropathy (chief complaint)m elanoma1 (chief complaint) Chronic pain syndromeGeneralize d anxiety disorderLiver diseaseMelanoma 6 Ephraim Headley. [address], [place], [place], [address] , [place]. tel:[phone] Referring Provider: Marko Mer[address], [place], [place], [address]. tel:[phone] OFFICE/OUTPA TIENT VISIT, [facility], [address], [place], [place], [address], [place] tel:[phone] [facility] back pain1 (chief complaint)a nxiety1 (chief complaint)m ole (chief complaint)l iver nodule (chief complaint) Nevus, non-neoplasticGene ralized anxiety disorderLiver diseaseLumbago 6 Ephra[address] Headley. [address], [place], [place], [address] , [place]. [phone] Referring Provider: Kayode Ye [address], [place], [place], [address]. tel:[phone] OFFICE/OUTPA TIENT VISIT, [facility], [address], [place], [place], [address], [place] tel:[phone] [facility] back pain1 (chief complaint)a nxiety1 (chief complaint)h and numnbess1 (chief complaint) LumbagoGeneralized anxiety disorderLesion of ulnar nerve of armLiver disease 6 Ephra[address] Headley. [address], [place], [place], [address] , [place]. [phone] Referring Provider: Marko Merino [address], [place], [place], [address]. tel:[phone] OFFICE/OUTPA TIENT VISIT, [facility], [address], [place], [place], [address], [place] tel:[phone] [facility] back pain1 (chief complaint)a nxiety1 (chief complaint)p roteinruia (chief complaint)H TN (chief complaint) Chronic pain syndromeGeneralize d anxiety disorderProteinuri aEssential (primary) hypertension 6 Ephra[address] Headley. [address], [place], [place], [address] , [place]. tel:[phone] Referring Provider: Marko [address], [place], [address]. tel:[phone] OFFICE/OUTPA TIENT VISIT, [facility], [address], [place], [place], [address], [place] tel:[phone] [facility] Medicine proteinuria 1 (chief complaint)a nxiety1 (chief complaint)l iver disease1 (chief complaint)b ack pain1 (chief complaint) ProteinuriaGeneral ized anxiety disorderLiver diseaseChronic pain syndrome 6 Ephra[address] Headley. [address], [place], [place], [address] , [place]. tel:[phone] Referring Provider: Marko [address], [place], [place], [address]. tel:[phone] OFFICE/OUTPA TIENT VISIT, [facility], [address], [place], [place], [address], [place] tel:[phone] [facility] back pain1 (chief complaint)a nxiety1 (chief complaint)l iver disease1 (chief complaint) Liver diseaseGeneralized anxiety disorderChronic pain syndrome 6 Ephraim Headley. [address], [place], [place], [address] , [place]. tel:[phone] Referring Provider: Marko Mer[address], [place], [place], [address]. tel:[phone] PREV VISIT, EST, AGE 18-39 [facility], [address], [place], [place], [address], [place] tel:[phone] [facility] Physical (chief complaint) Encntr for general adult medical exam w/o abnormal findings 6 Ephraim Headley. [address], [place], [place], [address] , [place]. tel:[phone] Referring Provider: Marko Mer[address], [place], [place], [address]. tel:[phone] OFFICE/OUTPA TIENT VISIT, EST [facility], [address], [place], [place], [address], [place] tel:[phone] [facility] Medicine lumbago1 (chief complaint)a nxiety1 (chief complaint)t remor (chief complaint)f atty liver (chief complaint) Other spondylosis, lumbar regionGeneralized anxiety disorderOther specified forms of tremorLiver disease, unspecified 5 Ephra[address] Headley. [address], [place], [place], [address] , [place]. [phone] Referring Provider: Kayode Ye, [address], [place], [place], [address]. tel:[phone] OFFICE/OUTPA TIENT VISIT, [facility], [address], [place], [place], [address], [place] [phone] [facility] fatty liver1 (chief complaint)a nxiety1 (chief complaint)b ack pain1 (chief complaint)t remor (chief complaint) Essential tremorOther spondylosis, lumbar regionFatty liverGeneralized anxiety disorder 5 Ephraim Headley. [address], [place], [address] , [place]. [phone] Referring Provider: Marko [address], [place], [place], [address]. tel:[phone] OFFICE/OUTPA TIENT VISIT, [facility], [address], [place], [place], [address], [place] tel:[phone] [facility] fatty liver (chief complaint)u lnar neuropathy (chief complaint)b ack pain (chief complaint)t remor (chief complaint) Fatty liverLiver massUlnar neuropathyLumbago 5 Ephraim Headley. [address], [place], [address] , [place]. [phone] Referring Provider: Marko Mer[address], [place], [place], [address]. tel:[phone] OFFICE/OUTPA TIENT VISIT, [facility], [address], [place], [place], [address], [place] tel:[phone] [facility] numbness (chief complaint)b ack pain (chief complaint)a nxiety (chief complaint) Disturbance of skin sensationGeneraliz ed anxiety disorderLumbago 5 Ephraim Vora [address], [place], [place], [address] , [place]. tel:[phone] Referring Provider: Marko [address], [place], [place], [address]. tel:[phone] OFFICE/OUTPA TIENT VISIT, [facility], [address], [place], [place], [address], [place] tel:[phone] [facility] carptal tunnel (chief complaint)b ack pain (chief complaint)A nxiety (chief complaint) Carpal tunnelGeneralized anxiety disorderLumbago Sep- 5 Ephraim Vora [address], [place], [address] , [place]. [phone] Referring Provider: Marko [address], [place], [place], [address]. tel:[phone] OFFICE/OUTPA TIENT VISIT, [facility], [address], [place], [place], [address], [place] tel:[phone] [facility] lumbago (chief complaint)A nxiety (chief complaint)l iver (chief complaint) Unspecified disorder of liverGeneralized anxiety disorderLumbagoDis turbance of skin sensation 5 [address], [place], [place], [address] , [place]. [phone] Referring Provider: Marko Mer[address], [place], [place], [address]. tel:[phone] OFFICE/OUTPA TIENT VISIT, [facility], [address], [place], [place], [address], [place] tel:[phone] [facility] back pain (chief complaint)A nxiety (chief complaint)l iver disease (chief complaint)l iver (chief complaint)H TN (chief complaint) Unspecified disorder of liverLumbagoGenera lized anxiety disorderBlood pressure elevated David-0 5 Ephra[address]ley. [address], [place], [place], [address] , [place]. tel:[phone] Referring Provider: Marko Mer[address], [place], [place], [address]. tel:[phone] OFFICE/OUTPA TIENT VISIT, [facility], [address], [place], [place], [address], [place] tel:[phone] [facility] tremor (chief complaint)b ack pain (chief complaint)a nxiety (chief complaint)h and numbness (chief complaint) Abnormal involuntary movementsLumbagoGe neralized anxiety disorderCarpal Tunnel Syndrome 5 Ephra[address] Headley. [address], [place], [place], [address] , [place]. tel:[phone] Referring Provider: Marko Mer[address], [place], [place], [address]. tel:[phone] OFFICE/OUTPA TIENT VISIT, [facility], [address], [place], [place], [address], [place] tel:[phone] [facility] Tremor (chief complaint)b ack pain (chief complaint)a nxiety (chief complaint)l iver diseaes (chief complaint) Dietary surveillance and counselingAbnormal involuntary movementsUnspecifi ed disorder of liverOpioid type dependence, unspecified useCarpal Tunnel Syndrome 5 Ephra[address]. [address], [place], [place], [address] , [place]. tel:[phone] Referring Provider: Marko Mer[address], [place], [place], [address]. tel:[phone] OFFICE/OUTPA TIENT VISIT, [facility], [address], [place], [place], [address], [place] tel:[phone] [facility] back pain (chief complaint)a nxiety (chief complaint)a llergy (chief complaint)t remor (chief complaint) Dietary surveillance and counselingAbnormal involuntary movementsLumbagoGe neralized anxiety disorderAllergic rhinitis, cause unspecified 5 [address]ra[address]. [address], [place], [place], [address] , [place]. [phone] Referring Provider: Kayode Ye, [address], [place], [place], [address]. tel:[phone] OFFICE/OUTPA TIENT VISIT, [facility], [address], [place], [place], [address], [place] tel:[phone] [facility] LFT (chief complaint)b ack pain (chief complaint)a nxiety (chief complaint) Dietary surveillance and counselingUnspecif ied disorder of liverLumbagoGenera lized anxiety disorderOpioid type dependence, unspecified use 5 Ephra[address]. [address], [place], [place], [address] , [place]. [phone] Referring Provider: Marko Mer[address], [place], [place], [address]. tel:[phone] OFFICE/OUTPA TIENT VISIT, [facility], [address], [place], [place], [address], [place] tel:[phone] [facility] back pain (chief complaint)a nxiety (chief complaint)L FT (chief complaint)n umbness (chief complaint) LumbagoGeneralized anxiety disorderUnspecifie d disorder of liverDisturbance of skin sensation 5 Ephra[address] V[address], [place], [place], [address] , [place]. tel:[phone] Referring Provider: Marko Mer[address], [place], [place], [address]. tel:[phone] OFFICE/OUTPA TIENT VISIT, [facility], [address], [place], [place], [address], [place] tel:[phone] [facility] anxiety (chief complaint)L BP (chief complaint)H TN (chief complaint) Dietary surveillance and counselingLumbagoG eneralized anxiety disorderHypertensi on, Unspecified 5 Ephraim Headley. [address], [place], [place], [address] , [place]. tel:[phone] Referring Provider: Marko [address], [place], [place], [address]. tel:[phone] PREV VISIT, EST, AGE 18-39 [facility], [address], [place], [place], [address], [place] tel:[phone] [facility] Physical (chief complaint) Routine Medical ExamRoutine Medical Exam 4 Ephraim Vora [address], [place], [place], [address] , [place]. tel:[phone] Referring Provider: Marko Mer[address], [place], [place], [address]. tel:[phone] OFFICE/OUTPA TIENT VISIT, EST [facility], [address], [place], [place], [address], [place] tel:[phone] [facility] back pain (chief complaint)a nxiety (chief complaint)H TN (chief complaint) Dietary surveillance and counselingLumbagoH ypertension, UnspecifiedOTHER PANCYTOPENIA 3 [address]ra[address] V[address], [place], [place], [address] , [place]. tel:[phone] Referring Provider: Marko Mer[address], [place], [place], [address]. tel:[phone] OFFICE/OUTPA TIENT VISIT, EST [facility], [address], [place], [place], [address], [place] tel:[phone] [facility] back pain (chief complaint)a nxiety (chief complaint)c old symptoms (chief complaint) LumbagoGeneralized anxiety disorderAcute upper respiratory infections of other multiple sites 3 Ephra[address]. [address], [place], [place], [address] , [place]. tel:[phone] Referring Provider: Marko Mer[address], [place], [place], [address]. tel:[phone] OFFICE/OUTPA TIENT VISIT, [facility], [address], [place], [place], [address], [place] tel:[phone] [facility] back pain (chief complaint)a nxiety (chief complaint)l ymphadenopa thy (chief complaint) Dietary surveillance and counselingLumbagoE nlargement of lymph nodesGeneralized anxiety disorder 3 [address]ra[address]. [address], [place], [place], [address] , [place]. [phone] Referring Provider: Marko [address], [place], [place], [address]. tel:[phone] OFFICE/OUTPA TIENT VISIT, [facility], [address], [place], [place], [address], [place] tel:[phone] [facility] back pain (chief complaint)l ymphadenopa thy (chief complaint) LumbagoEnlargement of lymph nodesOTHER PANCYTOPENIAGenera lized anxiety disorder 3 [address]. [address], [place], [place], [address] , [place]. tel:[phone] Referring Provider: Marko Mer[address], [place], [place], [address]. tel:[phone] PREV VISIT, NEW, AGE 18-39 [facility], [address], [place], [place], [address], [place] tel:[phone] [facility] Physical (chief complaint) Routine Medical ExamRoutine Medical Exam 3 Ephra[address]. [address], [place], [place], [address] , [place]. [phone] Referring Provider: Marko [address], [place], [place], [address]. tel:[phone] Family History Family Member Type Diagnosis Age At Onset Father Problem (finding) Hypertension Problem (finding) Family history of Hyper tension Brother Problem (finding) Alive and well Father Problem (finding) COPD Problem (finding) Family history of Coronary artery disease Father Problem (finding) Back Pain Problem (finding) Family history of Back Pain Payers Payer name Insurance type Covered green party ID Authoriza tion(s) No Information Social History [...] limbs) ordered Referral Referred To: Matt Gregg [facility] [address] [place], [id number] Ordered: Referrals: Matt Gregg ordered Referral Ordered: Gastroenterology (related to Liver disease) ordered Referral Ordered: Matt Gregg (related to Nevus, non-neoplastic) ordered Referral Ordered: MRI ABDOMEN W/O & W/DYE ordered Referral Ordered: Matt Gregg (related to Lesion of ulnar nerve of arm) ordered Referral Referred To: Matt Gregg [facility] [address] [place], [id number] Ordered: Referrals: Matt Gregg. Evaluate and treat ordered Referral Ordered: Gastroenterology (related to Fatty liver) ordered Referral Ordered: Referrals: Gastroenterology. Evaluate and treat ordered Referral Ordered: MRI BRAIN W/O & W/DYE ordered Referral Ordered: Neurosurgery (related to Lumbago) ordered Referral Ordered: Jason Bain (related to Lumbago) ordered Referral Ordered: Referrals: Neurosurgery. Evaluate and treat ordered Referral Referred To: Jason Bain [address] [facility]
[address] [place], [phone] Ordered: Referrals: Jason Bain. Evaluate and treat [...] not approved yet. Pt did not call [facility] to follow up on the MRI. fatty liver Pt has fatty jaiden er with nodule. Pt canceled her appointment with GI due to unable to get off work lumbago1 Pt has chronic l ow back pain. Pt c/o bilateral sciatica. Pt denies any loss of bowel or bladder control. Pt still has not made appointment with neurosrugery at [facility] yet. ??? Pt denies any worsening pain. [...] of propranolol for several days. Pt denie [id number]|2024-06-26 12:10:00|2024-06-26 12:10:00|XMS_ITS|TAMIKOG ZUIR|External Medical Summaries|[id number]|" Clinical Summary Created on: June 26, 2024 Antwon Stanford : 02/20/1990 Sex: Male Author Organization [facility] Address [address] [place] [address] Phone Care Team Providers Care Paper Final Inspector Name Role Phone Vasquez Arora MD Primary Care Provider [phone] Allergies No known active allergies Medications fluticasone (FLONASE) 50 mcg/spray [place], Suspension Administer 2 Sprays in each nostril daily. Active bacitracin-poly myxin B (POLYSPORIN) 500-10,000 unit/gram Ointment Apply to affected area 2 times daily. 28 Gram 0 5 Active Social History Tobacco Use Types Packs/Day Years Used Date Smoking Tobacco: Every Day Cigarettes Smokeless Tobacco: Never Alcohol Use Standard Drinks/Week Comments Yes 0 (1 standard drink = 0.6 oz pur e alcohol) socially Sex and Gender Information Value Date Recorded Sex Assigned at Not on file Legal Sex Male 5:26 PM CDT Gender Identity Not on file Sexual Orientation Not on file Last Filed Vital Signs Vital Sign Reading Time Taken Comments Blood Pressure 126/73 07/04/2014 9:14 PM CDT Pulse 73 07/04/2014 9:14 PM CDT Temperature 36.2 C (97.1 F) 07/04/2014 5:34 PM CDT Respiratory Rate 16 07/04/2014 9:14 PM CDT Oxygen Saturation 99% 07/04/2014 9:14 PM CDT Inhaled Oxygen Concentration - - Weight 90.7 kg (200 lb) 07/04/2014 5:34 PM CDT Height 180.3 cm (5' 11 ) 07/04/2014 5:34 PM CDT Body Mass Index 27.89 07/04/2014 5:34 PM CDT Plan of Treatment Health Maintenance Due Date Last Done Comments DTAP/TDAP/TD VACCINES (1 - Tdap) 02/20/2009 HEPATITIS B VACCINES (1 of 3 - 19+ 3-dose series) 02/20/2009 INFLUENZA VACCINE (#1) 2023 HPV VACCINES Aged Out No longer eligi ble based on patient's age to complete this topic Care Teams Paper Final Inspector Relationship Specialty Start Date End Date Vasquez Arora MD PCP - General Family Practice 07/04/14 "
== END 2024-06-26 12:31 | disposition home or self-care (01) ==
PROVIDERS: Emergency Provider Nurse Practitioner; PCP Internal Medicine
DX: S31.135A Puncture wound of abdominal wall without foreign body, periumbilic region without penetration into peritoneal cavity, initial encounter (principal); L08.9 Local infection of the skin and subcutaneous tissue, unspecified; I10 Essential (primary) hypertension
CPT/HCPCS: 99213; G0463